=== PATIENT | male | born 1965 | race Caucasian/White ===

== ENCOUNTER 2017-01-20 04:29 | Emergency (ER) | payer BC ==
--- NOTE | 2017-01-20 04:52 | EDM.PDOC ---
ED HPI GENERAL MEDICAL PROBLEM - General Chief Complaint: General Stated Complaint: headache Time Seen by Provider: 01/20/17 04:45 Source of Information: Reports: Patient, Family, Old records - History of Present Illness INITIAL COMMENTS - FREE TEXT/NARRATIVE: The patient was brought to the emergency room via private automobile by his for evaluation of return of a 10/10 sharp pounding diffuse headache typical of his previous headaches. He is not certain when he had his last severe headache, although he continues to see his neurologist at [facility] with extensive previous workup. Symptoms started at about 9 a.m. yesterday morning with last dose of ibuprofen at 600 mg at about 2 a.m.. He is having some problems with photophobia and mild nausea typical of his previous headaches with no emesis to this point. No recent history of abdominal pain, heartburn, diarrhea, melena, gross hematochezia, or any food intolerance , including fatty foods, etc.. The patient also denies any recent fever, cough, wheezing, dyspnea, etc.. Onset: gradual Onset Date: 01/19/17 Onset Time: 09:00 Duration: Constant, Getting worse Location: Reports: head. Denies: face, neck, chest, abdomen, back, upper extremity, left, upper extremity, right Quality: Reports: Same as previous episode, Sharp, Stabbing, Throbbing Improves with: Reports: None Worsens with: Reports: None Context: Reports: Other (As above) Associated Symptoms: Reports: headaches, nausea/vomiting, shortness of breath. Denies: confusion, chest pain, cough, diaphoresis, fever/chills, loss of appetite, seizure, syncope, weakness Treatments MARKETING OUTREACH COORDINATOR: Reports: NSAIDS Headache Pain Score (Numeric/FACES): 10 - Related Data Allergies Allergy/AdvReac Type Severity Reaction Status Date / Time sumatriptan [From Imitrex] Allergy Hypertensio Verified 01/20/17 04:35 n sumatriptan succinate Allergy Hypertensio Verified 01/20/17 04:35 [From Imitrex] n Home Meds: Home Meds Lisinopril [Prinivil] 20 mg PO DAILY 05/10/14 [History] PARoxetine [Paxil] 40 mg PO DAILY 05/10/14 [History] Verapamil HCl [Verapamil ER] 120 mg PO DAILY 05/10/14 [History] Ibuprofen 600 mg PO Q6H PRN 02/20/15 [History] metFORMIN [Glucophage] 1 tab PO BID 02/20/15 [History] Aspirin [Maximiliano Chewable Aspirin] 81 mg PO DAILY 09/13/16 [History] SitaGLIPtin [Januvia] 100 mg PO DAILY 09/13/16 [History] Past Medical History HEENT History: Reports: Allergic rhinitis, Impaired vision, Other (see below). Denies: Cataract, Glaucoma, Hard of hearing, Macular degeneration, Retinal detachment Other HEENT History: Diabetic retinopathy, reading glasses Cardiovascular History: Reports: High cholesterol, Hypertension, Other (see below). Denies: Afib, Aneurysm, Arrhythmia, Blood clots/VTE/DVT, CAD, Heart Failure, Heart murmur, MA, Syncope Other Cardiovascular History: History of hyperlipidemia with fatty liver by CT scan Respiratory History: Reports: Intubation, previous, Sleep apnea, Other (see below). Denies: Asthma, COPD, PE, Pneumothorax, TB Other Respiratory History: Noncompliant with CPAP Gastrointestinal History: Reports: Cholelithiasis, GERD, Hiatal hernia. Denies : Celiac disease, Chronic constipation, Chronic diarrhea, Colon polyp, Diverticulosis, Fecal incontinence, Gastritis, GI bleed, Hepatitis, Inflammatory bowel disease, Irritable bowel syndrome, Jaundice, Pancreatitis, PUD, Other (see below) Other Gastrointestinal History: Note history of Monica fundoplication and cholecystectomy as below Genitourinary History: Reports: Renal calculus, Other (see below). Denies: BPH , Chronic renal insuffiency, STD, Urinary incontinence, UTI, recurrent Other Genitourinary History: Bilateral nephrolithiasis by CT scan with no previous symptoms Musculoskeletal History: Reports: Back pain, chronic, Neck pain, chronic, Osteoarthritis, Other (see below). Denies: Amputation, Fracture, Gout, RA, SLE Other Musculoskeletal History: Positive BETHANIE in July 2016 Neurological History: Reports: Headaches, chronic, Head trauma, Migraines, Other (see below). Denies: Cerebral aneurysms, Concussion, CVA, Frequent repetitive habits (TICS), Neuropathy, diabetic, Neuropathy, peripheral, Parkinson's, Seizure, TIA, Vertigo Other Neuro History: Refractory recurrent migraine/tension headaches, head contusion without concussion on 04/25/16 Psychiatric History: Reports: Addiction, Anxiety, Depression, Other (see below) . Denies: Abuse, victim of, ADHD, Dementia, Psych Hospitalization(s), PTSD, Suicide attempt, Suicidal ideation Other Psychiatric History: history of previous chronic narcotic use Endocrine/Metabolic History: Reports: Diabetes, type II. Denies: Hypothyroidism , IDDM Hematologic History: Reports: Blood transfusion(s), Other (see below). Denies: Anemia, B12 deficiency, Iron deficiency Other Hematologic History: Blood transfusions at time of Monica fundoplication Immunologic History: Reports: None, Other (see below). Denies: AIDS, HIV, SLE Other Immunologic History: Note previous negative workup for positive BETHANIE Oncologic (Cancer) History: Reports: None. Denies: Basal cell carcinoma, Hodgkin's Lymphoma, Leukemia, Lymphoma, Malignant melanoma, Non-Hodgkin's Lymphoma Dermatologic History: Reports: Eczema, Venous stasis dermatitis. Denies: Psoriasis - Infectious Disease History Infectious Disease History: Reports: Chicken pox. Denies: C-difficile, Measles , MRSA, Mumps, Pertussis (whooping cough), Rheumatic Fever, Rubella, Scarlet fever, Shingles, VRE - Past Surgical History Head Surgeries/Procedures: Reports: None HEENT Surgical History: Reports: None. Denies: Adenoidectomy, Cataract surgery , Eye surgery, Laser surgery, LASIK, Myringotomy w tube(s), Naso-sinus surgery, Oral surgery, Tonsillectomy Cardiovascular Surgical History: Reports: Varicose. Denies: Vascular surgery Other Cardiovascular Surgeries/Procedures: Left leg injections/sclerotherapy for varicose veins in about 2010 Respiratory Surgical History: Reports: None. Denies: Lung Biopsies, Thoracentesis GI Surgical History: Reports: Appendectomy, Cholecystectomy, Colonoscopy, EGD, Hernia, inguinal, Other (see below) Other GI Surgeries/Procedures: Monica fundoplication in September 2009, appendectomy 1990, laparoscopic cholecystectomy in 2007, last colonoscopy in about 2012, EGD in about 2009, right inguinal hernia repair in 1988 Male Surgical History: Reports: Circumcision, Vasectomy, Other (see below) Other Male Surgeries/Procedures: Circumcision as an , vasectomy in about 1995 Endocrine Surgical History: Reports: None. Denies: Thyroid biopsy Neurological Surgical History: Reports: None. Denies: C-Spine, Discectomy, Laminectomy, Lumbar spine, Spinal fusion, Vertebroplasty Musculoskeletal Surgical History: Reports: Arthroscopic knee, Arthroscopic procedure, Shoulder surgery, Other (see below). Denies: Carpal tunnel, Ganglion cyst, ORIF Other Musculoskeletal Surgeries/Procedures:: Right-sided arthroscopic meniscal repair in 1986, right laparoscopic shoulder surgery in October 2016 Oncologic Surgical History: Reports: None Dermatological Surgical History: Reports: None - Past Imaging History Past Imaging History: Reports: Angiography (Heart catheterization at [facility] in February 2015), CAT scan (Last CT scan of the brain on 04/25/16 with multiple previous evaluations by history, CT of the abdomen and pelvis on ), Stress testing (Cardiac stress test of unknown type in [facility] in February 2015), Upper GI x-ray/series (Upper GI and swallowing study on 02/25/12), Other (see below) (EMG and nerve conduction studies in July 2016) Social & Family History - Family History Cardiac: Reports: CAD, MA, Stent, Other (see below) Other Cardiac Family History: History of early heart attacks in family, including brother in his 50s another brother in his 60s with both brothers having PTCA/stents Neurological: Reports: Parkinson's, Other (see below). Denies: Alzheimers disease, Cerebral aneurysms, CVA, Dementia, Frequent repetitive habits (TICS), Migraines, MS, Neuropathy, peripheral, Seizure, TIA Other Neurological Family History: Maternal aunt with Parkinson's disease - Tobacco Use Smoking Status *Q: Never Smoker Tobacco Use Within Last Twelve Months: No Smoking Cessation Information Provided To Patient: No Second Hand Smoke Exposure: No Second Hand Smoke Education Provided: No - Caffeine Use Caffeine Use: Reports: Coffee, Soda. 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 ED EXAM, GENERAL - Physical Exam Exam: See Below Exam Limited By: No limitations General Appearance: alert, WD/WN, anxious (Moderate), mild distress Eye Exam: bilateral eye: EOMI, normal inspection (No nystagmus), PERRL Ears: normal external exam, normal canal, hearing grossly normal, normal TMs Nose: normal inspection, normal mucosa, no blood Throat/Mouth: Normal inspection, Normal lips, Normal teeth, Normal gums, Normal oropharynx, Normal voice, No airway compromise. No: Dysphagia, Perioral cyanosis Head: atraumatic, normocephalic. No: facial swelling, facial tenderness, sinus tenderness Neck: normal inspection, supple, non-tender, full range of motion. No: lymphadenopathy (L), lymphadenopathy (R), thyromegaly Respiratory/Chest: no respiratory distress, lungs clear, normal breath sounds, no accessory muscle use, chest non-tender. No: pleural rub, retractions Cardiovascular: normal peripheral pulses, regular rate, rhythm, no edema, no gallop, no JVD, no murmur, no rub. No: gallop/S3, gallop/S4, friction rub Peripheral Pulses: 4+: radial (L), radial (R) GI/Abdominal: normal bowel sounds, soft, non tender, no organomegaly, no distention, no abnormal bruit, no mass. No: guarding (Male) Exam: Deferred Rectal (Males) Exam: Deferred Back Exam: normal inspection, full range of motion. No: CVA tenderness (L), CVA tenderness (R), muscle spasm Extremities: normal inspection, normal range of motion, non-tender, normal capillary refill, no pedal edema Neurological: alert, oriented, CN II-XII intact, normal cognition, normal gait, no motor/sensory deficits Psychiatric: anxious (Moderate), depressed mood (Mild to moderate) Skin Exam: Warm, Dry, Intact, Normal color, No rash. No: Diaphoretic, Wound/ incision Lymphatic: no adenopathy Course - Vital Signs Last Recorded V/S: Last Vital Signs Temp 36.6 C 01/20/17 04:47 Pulse 74 01/20/17 04:47 Resp 18 01/20/17 04:47 BP 143/94 H 01/20/17 04:47 Pulse Ox 100 01/20/17 04:47 Vital Signs - 24 hr 01/20/17 01/20/17 01/20/17 04:31 04:47 05:34 Temperature [ 36.6 C 36.6 C Oral] Pulse, 74 74 88 Peripheral [ Right Pulse Oximetry] Respiratory 18 18 14 Rate Blood Pressure 143/94 H 143/94 H 142/94 H [Left Upper Arm ] O2 Sat by Pulse 100 100 97 Oximetry - Orders/Labs/Meds Orders: Active Orders 24 hr Category Date Time Status Peripheral IV Care [RC] . DIRECTED Care 01/20/17 04:53 Active Sodium Chloride 0.9% [Saline Flush] Med 01/20/17 04:53 Active 10 ml FLUSH ASDIRECTED PRN Peripheral IV Insertion Adult [OM.PC] Routine Oth 01/20/17 04:53 Ordered Medication Orders Sodium Chloride (Saline Flush) 10 ml FLUSH ASDIRECTED PRN PRN Reason: Keep Vein Open Last Admin: 01/20/17 05:19 Dose: 10 ml Labs: None Meds: Medications Generic Name Dose Route Start Last Admin Trade Name Freq PRN Reason Stop Dose Admin Sodium Chloride 10 ml 01/20/17 04:53 01/20/17 05:19 Saline Flush FLUSH 10 ml ASDIRECTED PRN Administration Keep Vein Open Discontinued Medications Generic Name Dose Route Start Last Admin Trade Name Freq PRN Reason Stop Dose Admin Diazepam 2.5 mg 01/20/17 04:53 01/20/17 05:11 Valium IVPUSH 01/20/17 04:54 2.5 mg ONETIME ONE Administration Diazepam 10 mg 01/20/17 04:55 01/20/17 05:14 Valium IM 01/20/17 04:56 10 mg ONETIME ONE Administration Diphenhydramine HCl 50 mg 01/20/17 04:54 01/20/17 05:07 Benadryl IVPUSH 01/20/17 04:55 50 mg ONETIME ONE Administration Hydromorphone HCl 1 mg 01/20/17 04:54 01/20/17 05:04 Dilaudid IVPUSH 01/20/17 04:55 1 mg ONETIME ONE Administration Metoclopramide HCl 20 mg 01/20/17 04:53 01/20/17 05:00 Reglan IVPUSH 01/20/17 04:54 20 mg ONETIME ONE Administration - Radiology Interpretation Free Text/Narrative:: None Departure - Departure Time of Disposition: 05:40 Disposition: Home, Self-Care 01 Condition: good Clinical Impression: Frequent headaches, Diabetes mellitus, Hypertension, Osteoarthritis, Mixed anxiety and depressive disorder, Sleep apnea Forms: ED Department Discharge, Return to Work/School Form Additional Instructions: 1. Follow up with your regular provider in 10-14 days as needed, if symptoms persist. 2. Tylenol 650 mg by mouth every 4 hours and/or OTC ibuprofen 2-3 tabs by mouth every 6 hours with food as directed./needed. 3. Ice packs to head and neck, dark and quiet room, etc. as directed until headache resolves. 4. Discuss possible additional preventative medications for your headaches with your regular provider. Consider OTC magnesium oxide 400 mg every day as headache prevention with diarrhea precautions with this medicatiion as directed 5. Work excuse- See Form 6. Sedation precautions with no driving, etc. for 18 hours because of emergency room medications. 7. Discuss with your regular provider URSZULA about changing your CPAP mask with initiation of this therapy once again URSZULA - Problem List & Annotations (1) Frequent headaches SNOMED Code(s): 078384208 Code(s): R51 - HEADACHE Status: Acute Priority: Medium Annotation/ Comment:: Overall good results with above treatment. Note aggressive treatment as above secondary to known history of refractory headaches. Work excuse provided. His will drive him home secondary to sedating medications given in the emergency room. (2) Diabetes mellitus SNOMED Code(s): 73573714 Code(s): E11.9 - TYPE 2 DIABETES MELLITUS WITHOUT COMPLICATIONS Status: Acute Priority: Medium Annotation/Comment:: Accu-Cheks are good control by patient history with the patient taking his Accu-Cheks at home on a 3 times a day to 4 times a day basis. Average Accu-Cheks in the 120s by his history. Continue to observe closely through his regular provider. Note history of diabetic retinopathy Qualifiers: Diabetes mellitus type: type 2 Diabetes mellitus complication status: with ophthalmic complications Diabetes mellitus complication detail: with diabetic retinopathy Diabetic retinopathy severity: with mild nonproliferative retinopathy Diabetes mellitus macular edema: macular edema presence unspecified (3) Hypertension SNOMED Code(s): 35702778 Code(s): I10 - ESSENTIAL (PRIMARY) HYPERTENSION Status: Acute Priority: Medium Annotation/Comment:: Blood pressure somewhat elevated in the emergency room today likely secondary to his headache. Continue to watch this closely his regular providers with no change in current medical therapy. Qualifiers: Hypertension type: essential hypertension Qualified Code(s): I10 - Essential (primary) hypertension (4) Sleep apnea SNOMED Code(s): 26708208 Code(s): G47.30 - SLEEP APNEA, UNSPECIFIED Status: Acute Priority: Medium Annotation/Comment:: The patient and his were once again counseled and encouraged to obtain a new mask from his regular provider URSZULA. He has been noncompliant with his CPAP for quite some time secondary to previous mask intolerance. No recent fever or bronchitic-type symptoms. Qualifiers: Sleep apnea type: unspecified type Qualified Code(s): G47.30 - Sleep apnea , unspecified (5) Mixed anxiety and depressive disorder SNOMED Code(s): 244485556 Code(s): F41.8 - OTHER SPECIFIED ANXIETY DISORDERS Status: Chronic Priority: Medium Annotation/Comment:: Stable by patient history. Continue to observe closely through his regular provider. Possible anxiety component to the above symptoms (6) Osteoarthritis SNOMED Code(s): 243735619 Code(s): M19.90 - UNSPECIFIED OSTEOARTHRITIS, UNSPECIFIED SITE Status: Chronic Priority: Medium Annotation/Comment:: Stable by patient history with current ibuprofen use. Note previous positive BETHANIE as above with patient apparently having a rheumatology appointment on 10/13/16 with no specific diagnosis given at that time Qualifiers: Osteoarthritis location: multiple joints Osteoarthritis type: primary Qualified Code(s): M15.0 - Primary generalized (osteo)arthritis - Problem List Review Problem List Initiated/Reviewed/Updated: Yes - My Orders Last 24 Hours: My Active Orders 01/20/17 04:53 Peripheral IV Care [RC] . DIRECTED Sodium Chloride 0.9% [Saline Flush] 10 ml FLUSH ASDIRECTED PRN Peripheral IV Insertion Adult [OM.PC] Routine - Assessment/Plan Last 24 Hours: My Active Orders 01/20/17 04:53 Peripheral IV Care [RC] . DIRECTED Sodium Chloride 0.9% [Saline Flush] 10 ml FLUSH ASDIRECTED PRN Peripheral IV Insertion Adult [OM.PC] Routine Assessment:: As above Plan: As above. Extensive precautions were given to the patient and his , who are in agreement with the treatment plan. See Patient Instructions for further treatment and plan.
[2017-01-20] MEDS ORDERED: Metoclopramide 10 MG/2 ML SDV IVPUSH ONE (04:53)
[2017-01-20] MEDS ORDERED: HYDROmorphone 1 MG/ML Syringe IVPUSH ONE (04:54)
[2017-01-20] MEDS ORDERED: diphenhydrAMINE 50 MG/ML SDV IVPUSH ONE (04:54)
[2017-01-20] MEDS: Sodium Chloride 0.9% 10 ML Syringe FLUSH PRN ×3 (05:12→05:19)
[2017-01-20 05:36] VITALS: BP 142/94
== END 2017-01-20 05:40 | disposition home or self-care (01) ==
LOC: LL.ED 04:29
DX: R51 Headache (principal); E11.9 Type 2 diabetes mellitus without complications; I10 Essential (primary) hypertension; F41.8 Other specified anxiety disorders; G47.30 Sleep apnea, unspecified; Z79.899 Other long term (current) drug therapy; Z79.82 Long term (current) use of aspirin; Z79.84 Long term (current) use of oral hypoglycemic drugs; Z88.8 Allergy status to other drugs, medicaments and biological substances; E78.00 Pure hypercholesterolemia, unspecified
CPT/HCPCS: 96372; 96374; 96375; 99284; J1170; J1200; J2765; J3360; J7050

== ENCOUNTER 2017-03-21 20:57 | Emergency (ER) | payer BC ==
[2017-03-21] MEDS ORDERED: Morphine 4 MG/ML Syringe IVPUSH ONE ×3 (20:59→22:50)
[2017-03-21] MEDS ORDERED: Aspirin 81 MG Tab.Chew PO ONE (20:59)
[2017-03-21] MEDS ORDERED: Nitroglycerin 0.4 MG Tab.SL SL PRN ×3 (21:00→21:41)
[2017-03-21] MEDS ORDERED: Ondansetron 4 MG/2 ML SDV ONE ×2 (21:06→22:41)
--- NOTE | 2017-03-21 21:08 | EDM.PDOC ---
ED HISTORY OF PRESENT ILLNESS - General Chief Complaint: Chest Pain Stated Complaint: Chest Pain Time Seen by Provider: 03/21/17 20:57 Source of Information: Reports: Patient History Limitations: Reports: No limitations - History of Present Illness INITIAL COMMENTS - FREE TEXT/NARRATIVE: The patient presents by private vehicle with son from home with complaint of substernal chest pain that began 20 minutes prior to transport to the ER at approximately 20:00. The patient states the pain was initial 7-8/10 and on arrival in the ER he is moaning and groaning and diaphoretic and rates the pain at 8-9/10 in severity and states it radiates to bilateral shoulders. He denies a history of CA or CAD that he is aware of. He denies DVT or PE. He has cardiac risk factors of Diabetes Type 2 on Metformin, HTN treated with lisinopril, and HLD treated with a statin. He denies other symptoms or complaints. - Related Data Allergies/ADRs: Allergies Allergy/AdvReac Type Severity Reaction Status Date / Time sumatriptan [From Imitrex] Allergy Hypertensio Verified 01/20/17 04:35 n sumatriptan succinate Allergy Hypertensio Verified 01/20/17 04:35 [From Imitrex] n Home Meds: Home Meds Lisinopril [Prinivil] 20 mg PO DAILY 05/10/14 [History] PARoxetine [Paxil] 40 mg PO DAILY 05/10/14 [History] Verapamil HCl [Verapamil ER] 120 mg PO DAILY 05/10/14 [History] Ibuprofen 600 mg PO Q6H PRN 02/20/15 [History] metFORMIN [Glucophage] 1 tab PO BID 02/20/15 [History] Aspirin [Maximiliano Chewable Aspirin] 81 mg PO DAILY 09/13/16 [History] SitaGLIPtin [Januvia] 100 mg PO DAILY 09/13/16 [History] Past Medical History HEENT History: Reports: Allergic rhinitis, Impaired vision, Other (see below). Denies: Cataract, Glaucoma, Hard of hearing, Macular degeneration, Retinal detachment Other HEENT History: Diabetic retinopathy, reading glasses Cardiovascular History: Reports: High cholesterol, Hypertension, Other (see below). Denies: Afib, Aneurysm, Arrhythmia, Blood clots/VTE/DVT, CAD, Heart Failure, Heart murmur, CA, Syncope Other Cardiovascular History: History of hyperlipidemia with fatty liver by CT scan Respiratory History: Reports: Intubation, previous, Sleep apnea, Other (see below). Denies: Asthma, COPD, PE, Pneumothorax, TB Other Respiratory History: Noncompliant with CPAP Gastrointestinal History: Reports: Cholelithiasis, GERD, Hiatal hernia. Denies : Celiac disease, Chronic constipation, Chronic diarrhea, Colon polyp, Diverticulosis, Fecal incontinence, Gastritis, GI bleed, Hepatitis, Inflammatory bowel disease, Irritable bowel syndrome, Jaundice, Pancreatitis, PUD, Other (see below) Other Gastrointestinal History: Note history of Monica fundoplication and cholecystectomy as below Genitourinary History: Reports: Renal calculus, Other (see below). Denies: BPH , Chronic renal insuffiency, STD, Urinary incontinence, UTI, recurrent Other Genitourinary History: Bilateral nephrolithiasis by CT scan with no previous symptoms Musculoskeletal History: Reports: Back pain, chronic, Neck pain, chronic, Osteoarthritis, Other (see below). Denies: Amputation, Fracture, Gout, RA, SLE Other Musculoskeletal History: Positive BETHANIE in July 2016 Neurological History: Reports: Headaches, chronic, Head trauma, Migraines, Other (see below). Denies: Cerebral aneurysms, Concussion, CVA, Frequent repetitive habits (TICS), Neuropathy, diabetic, Neuropathy, peripheral, Parkinson's, Seizure, TIA, Vertigo Other Neuro History: Refractory recurrent migraine/tension headaches, head contusion without concussion on 04/25/16 Psychiatric History: Reports: Addiction, Anxiety, Depression, Other (see below) . Denies: Abuse, victim of, ADHD, Dementia, Psych Hospitalization(s), PTSD, Suicide attempt, Suicidal ideation Other Psychiatric History: history of previous chronic narcotic use Endocrine/Metabolic History: Reports: Diabetes, type II. Denies: Hypothyroidism , IDDM Hematologic History: Reports: Blood transfusion(s), Other (see below). Denies: Anemia, B12 deficiency, Iron deficiency Other Hematologic History: Blood transfusions at time of Monica fundoplication Immunologic History: Reports: None, Other (see below). Denies: AIDS, HIV, SLE Other Immunologic History: Note previous negative workup for positive BETHANIE Oncologic (Cancer) History: Reports: None. Denies: Basal cell carcinoma, Hodgkin's Lymphoma, Leukemia, Lymphoma, Malignant melanoma, Non-Hodgkin's Lymphoma Dermatologic History: Reports: Eczema, Venous stasis dermatitis. Denies: Psoriasis Other Dermatologic History: Venous stasis dermatitis - Infectious Disease History Infectious Disease History: Reports: Chicken pox. Denies: C-difficile, Measles , MRSA, Mumps, Pertussis (whooping cough), Rheumatic Fever, Rubella, Scarlet fever, Shingles, VRE - Past Surgical History Head Surgeries/Procedures: Reports: None HEENT Surgical History: Reports: None. Denies: Adenoidectomy, Cataract surgery , Eye surgery, Laser surgery, LASIK, Myringotomy w tube(s), Naso-sinus surgery, Oral surgery, Tonsillectomy Cardiovascular Surgical History: Reports: Varicose. Denies: Vascular surgery Other Cardiovascular Surgeries/Procedures: Left leg injections/sclerotherapy for varicose veins in about 2010 Respiratory Surgical History: Reports: None. Denies: Lung Biopsies, Thoracentesis GI Surgical History: Reports: Appendectomy, Cholecystectomy, Colonoscopy, EGD, Hernia, inguinal, Other (see below) Other GI Surgeries/Procedures: Monica fundoplication in September 2009, appendectomy 1990, laparoscopic cholecystectomy in 2007, last colonoscopy in about 2012, EGD in about 2009, right inguinal hernia repair in 1988 Male Surgical History: Reports: Circumcision, Vasectomy, Other (see below) Other Male Surgeries/Procedures: Circumcision as an , vasectomy in about 1995 Endocrine Surgical History: Reports: None. Denies: Thyroid biopsy Neurological Surgical History: Reports: None. Denies: C-Spine, Discectomy, Laminectomy, Lumbar spine, Spinal fusion, Vertebroplasty Musculoskeletal Surgical History: Reports: Arthroscopic knee, Arthroscopic procedure, Shoulder surgery, Other (see below). Denies: Carpal tunnel, Ganglion cyst, ORIF Other Musculoskeletal Surgeries/Procedures:: Right-sided arthroscopic meniscal repair in 1986, right laparoscopic shoulder surgery in October 2016 Oncologic Surgical History: Reports: None Dermatological Surgical History: Reports: None - Past Imaging History Past Imaging History: Reports: Angiography (Heart catheterization at [facility] in February 2015), CAT scan (Last CT scan of the brain on 04/25/16 with multiple previous evaluations by history, CT of the abdomen and pelvis on ), Stress testing (Cardiac stress test of unknown type in [facility] in February 2015), Upper GI x-ray/series (Upper GI and swallowing study on 02/25/12), Other (see below) (EMG and nerve conduction studies in July 2016) Social & Family History - Family History Cardiac: Reports: CAD, CA, Stent, Other (see below) Other Cardiac Family History: History of early heart attacks in family, including brother in his 50s another brother in his 60s with both brothers having PTCA/stents Neurological: Reports: Parkinson's, Other (see below). Denies: Alzheimers disease, Cerebral aneurysms, CVA, Dementia, Frequent repetitive habits (TICS), Migraines, MS, Neuropathy, peripheral, Seizure, TIA Other Neurological Family History: Maternal aunt with Parkinson's disease - Tobacco Use Smoking Status *Q: Never Smoker Second Hand Smoke Exposure: No - Caffeine Use Caffeine Use: Reports: Coffee, Soda. 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 ED EXAM, GENERAL - Physical Exam Exam: See Below Exam Limited By: No limitations General Appearance: alert, WD/WN, moderate distress (Diaphoretic. Moaning and Groaning. ) Eye Exam: bilateral eye: EOMI, normal inspection, PERRL Ears: normal external exam, normal canal, hearing grossly normal, normal TMs Ear Exam: bilateral ear: auricle normal, canal normal, TM normal Nose: normal inspection, normal mucosa, no blood Throat/Mouth: Normal inspection, Normal lips, Normal teeth, Normal gums, Normal oropharynx Head: atraumatic, normocephalic Neck: normal inspection, supple, non-tender, full range of motion. No: lymphadenopathy (L), lymphadenopathy (R), tender lateral, tender midline Respiratory/Chest: no respiratory distress, lungs clear, normal breath sounds, no accessory muscle use, chest non-tender Cardiovascular: normal peripheral pulses, regular rate, rhythm, no edema, no gallop, no murmur, no rub Peripheral Pulses: 2+: radial (L), radial (R) GI/Abdominal: normal bowel sounds, soft, non tender, no organomegaly, no distention. No: guarding, rigid, rebound Back Exam: normal inspection, full range of motion. No: CVA tenderness (L), CVA tenderness (R), paraspinal tenderness, vertebral tenderness Extremities: normal inspection, normal range of motion, non-tender, no pedal edema, normal capillary refill Neurological: alert, oriented, CN II-XII intact, normal cognition, normal gait, normal reflexes, no motor/sensory deficits Psychiatric: normal affect, normal mood Skin Exam: Warm, Dry, Intact, Normal color, No rash Lymphatic: no adenopathy EKG INTERPRETATION EKG Date: 03/21/17 Time: 20:53 Rhythm: NSR Rate (beats/min): 92 Henrietta: normal P-wave: present QRS: other (Q waves that are wide and deep in V1.) ST-T: normal (No ST elevation or depressions.) QT: normal Comparison: change from previous EKG (Q waves wider and more shallow in V1 than EKG from 02/25/2015,) Course - Vital Signs Last Recorded V/S: Last Vital Signs Temp 36.7 C 03/21/17 21:19 Pulse 98 03/21/17 22:50 Resp 21 H 03/21/17 22:50 BP 127/77 03/21/17 22:50 Pulse Ox 100 03/21/17 22:50 - Orders/Labs/Meds Orders: Active Orders 24 hr Category Date Time Status EKG Documentation Completion [RC] STAT Care 03/21/17 21:00 Active Chest 1V Frontal [CR] Stat Exams 03/21/17 21:00 Taken Chest PE [Ang Chest] [CT] Stat Exams 03/21/17 21:38 Taken Nitroglycerin/D5W [Nitroglycerin 25 MG/D5W 250 ML] Med 03/21/17 21:30 Active 25 mg in 250 ml IV TITRATE Medication Orders Nitroglycerin/Dextrose (Nitroglycerin 25 Mg/D5w 250 Ml) 25 mg in 250 mls @ 3 mls/hr IV TITRATE WILLY PRN Reason: 5 MCG/MIN Last Admin: 03/21/17 21:38 Dose: 5 mcg/min, 3 mls/hr Labs: Laboratory Tests 03/21/17 03/21/17 03/21/17 Range/Units 21:00 21:00 21:00 WBC 7.3 (4.0-10.2) K/uL RBC 5.04 (4.33-5.41) M/uL Hgb 15.1 (13.1-16.8) g/dL Hct 43.0 (39.0-49.0) % MCV 85.3 (84.0-98.0) fL MCH 30.0 (28.2-33.3) pg MCHC 35.1 (31.7-36.0) g/dL RDW 12.7 (11.2-14.1) % Plt Count 226 (150-350) K/uL Neut % (Auto) 45.1 (45.0-80.0) % Lymph % (Auto) 43.6 (10.0-50.0) % Griggs % (Auto) 8.4 (2.0-14.0) % Eos % (Auto) 2.5 (0.0-5.0) % Baso % (Auto) 0.4 (0.0-2.0) % Neut # (Auto) 3.27 (1.40-7.00) K/uL Lymph # (Auto) 3.16 (0.50-3.50) K/uL Griggs # (Auto) 0.61 (0.00-1.00) K/uL Eos # (Auto) 0.18 (0.00-0.50) K/uL Baso # (Auto) 0.03 (0.00-0.20) K/uL PT (9.8-11.7) SEC INR APTT (23.5-30.0) SEC D-Dimer, Quantitative < 100 (0-400) ng/mL Sodium 137 (136-145) mmol/L Potassium 3.5 (3.5-5.1) mmol/L Chloride 103 (98-107) mmol/L Carbon Dioxide 23.9 (21.0-32.0) mmol/L BUN 11 (7-18) mg/dL Creatinine 1.27 H (0.51-1.17) mg/dL Est Cr Clr Drug Dosing TNP Estimated GFR (MDRD) 60 mL/min Glucose 158 H (74-106) mg/dL Calcium 10.0 (8.5-10.1) mg/dL Total Bilirubin 0.6 (0.2-1.0) mg/dL AST 29 (15-37) U/L ALT 44 (12-78) U/L Alkaline Phosphatase 96 (46-116) IU/L Creatine Kinase 134 (26-308) U/L Creatine Kinase Index 0.9 (0.0-2.5) % CK-MB (CK-2) 1.20 (0.00-3.60) ng/mL Troponin I 0.000 (0.000-0.056) ng/mL Total Protein 7.3 (6.4-8.2) g/dL Albumin 4.4 (3.4-5.0) g/dL 03/21/17 Range/Units 21:00 WBC (4.0-10.2) K/uL RBC (4.33-5.41) M/uL Hgb (13.1-16.8) g/dL Hct (39.0-49.0) % MCV (84.0-98.0) fL MCH (28.2-33.3) pg MCHC (31.7-36.0) g/dL RDW (11.2-14.1) % Plt Count (150-350) K/uL Neut % (Auto) (45.0-80.0) % Lymph % (Auto) (10.0-50.0) % Griggs % (Auto) (2.0-14.0) % Eos % (Auto) (0.0-5.0) % Baso % (Auto) (0.0-2.0) % Neut # (Auto) (1.40-7.00) K/uL Lymph # (Auto) (0.50-3.50) K/uL Griggs # (Auto) (0.00-1.00) K/uL Eos # (Auto) (0.00-0.50) K/uL Baso # (Auto) (0.00-0.20) K/uL PT 11.0 (9.8-11.7) SEC INR 1.0 APTT 26.8 (23.5-30.0) SEC D-Dimer, Quantitative (0-400) ng/mL Sodium (136-145) mmol/L Potassium (3.5-5.1) mmol/L Chloride (98-107) mmol/L Carbon Dioxide (21.0-32.0) mmol/L BUN (7-18) mg/dL Creatinine (0.51-1.17) mg/dL Est Cr Clr Drug Dosing Estimated GFR (MDRD) mL/min Glucose (74-106) mg/dL Calcium (8.5-10.1) mg/dL Total Bilirubin (0.2-1.0) mg/dL AST (15-37) U/L ALT (12-78) U/L Alkaline Phosphatase (46-116) IU/L Creatine Kinase (26-308) U/L Creatine Kinase Index (0.0-2.5) % CK-MB (CK-2) (0.00-3.60) ng/mL Troponin I (0.000-0.056) ng/mL Total Protein (6.4-8.2) g/dL Albumin (3.4-5.0) g/dL Meds: Medications Generic Name Dose Route Start Last Admin Trade Name Freq PRN Reason Stop Dose Admin Nitroglycerin/Dextrose 25 mg in 250 mls @ 3 mls/hr 03/21/17 21:30 03/21/17 21 :38 Nitroglycerin 25 Mg/D5w 250 Ml IV 5 mcg/min TITRATE WILLY 3 mls/hr 5 MCG/MIN Administration Discontinued Medications Generic Name Dose Route Start Last Admin Trade Name Freq PRN Reason Stop Dose Admin Aspirin 324 mg 03/21/17 20:59 03/21/17 21:00 Aspirin PO 03/21/17 21:00 324 mg ONETIME ONE Administration Iopamidol 100 ml 03/21/17 22:00 03/21/17 23:42 Isovue-370 (76%) IVPUSH 03/21/17 22:01 Not Given ONETIME ONE Iopamidol Confirm 03/21/17 21:47 03/21/17 22:46 Isovue-370 (76%) Administered 03/21/17 21:48 100 ml Dose Administration 100 ml .ROUTE .STK-MED ONE Morphine Sulfate 4 mg 03/21/17 20:59 03/21/17 21:05 Morphine IVPUSH 03/21/17 21:00 4 mg ONETIME ONE Administration Morphine Sulfate 4 mg 03/21/17 21:39 03/21/17 21:27 Morphine IVPUSH 03/21/17 21:40 4 mg ONETIME ONE Administration Morphine Sulfate 4 mg 03/21/17 22:50 Morphine IVPUSH 03/21/17 22:51 ONETIME ONE Nitroglycerin 0.4 mg 03/21/17 21:00 03/21/17 21:10 Nitrostat SL 03/21/17 21:11 0.4 mg Q5M PRN Administration Chest Pain Nitroglycerin 0.4 mg 03/21/17 21:17 03/21/17 21:18 Nitrostat SL 03/21/17 21:28 0.4 mg Q5M PRN Administration Chest Pain Nitroglycerin 0.4 mg 03/21/17 21:41 03/21/17 21:28 Nitrostat SL 03/21/17 21:52 0.4 mg Q5M PRN Administration Chest Pain Ondansetron HCl Confirm 03/21/17 21:06 03/21/17 21:09 Zofran Administered 03/21/17 21:07 4 mg Dose Administration 4 mg .ROUTE .STK-MED ONE Ondansetron HCl Confirm 03/21/17 22:41 03/21/17 22:40 Zofran Administered 03/21/17 22:42 4 mg Dose Administration 4 mg .ROUTE .STK-MED ONE - Radiology Interpretation Free Text/Narrative:: CXR negative for PE, infiltrate, and no widening of mediastinum or cardiac silhouette and no changes from last chest xray in 2014. CT of the chest with PE protocol negative for PE. I noted an area of concern of the ascending thoracic aorta that to I thought looked concerning for filling defect and possible dissection, but discussed with radiologist from [facility] who feels it represents pulsation and motion artifact and has no concern for dissecting aneurysm. Departure - Departure Time of Disposition: 22:53 Disposition: DC/Tfer to [facility] 02 Reason for Transfer *Q: Other (Strong clinical suspicion of cardiac etiology or dissecting aortic aneurysm.) Clinical Impression: Chest pain Qualifiers: Chest pain type: unspecified Qualified Code(s): R07.9 - Chest pain, unspecified Forms: ED Department Discharge - My Orders Last 24 Hours: My Active Orders 03/21/17 21:00 EKG Documentation Completion [RC] STAT Chest 1V Frontal [CR] Stat 03/21/17 21:30 Nitroglycerin/D5W [Nitroglycerin 25 MG/D5W 250 ML] 25 mg in 250 ml IV TITRATE 03/21/17 21:38 Chest PE [Ang Chest] [CT] Stat - Assessment/Plan Last 24 Hours: My Active Orders 03/21/17 21:00 EKG Documentation Completion [RC] STAT Chest 1V Frontal [CR] Stat 03/21/17 21:30 Nitroglycerin/D5W [Nitroglycerin 25 MG/D5W 250 ML] 25 mg in 250 ml IV TITRATE 03/21/17 21:38 Chest PE [Ang Chest] [CT] Stat Assessment:: Chest pain. Plan: 1. Given aspirin 324 mg PO on arrival in ER. 2. Oxygen 4 L per nasal cannula started on arrival in ER. 3. Morphine 4 mg IV for pain control shortly after arrival, and repeated x 1 with no improvement in pain. 4. IV started and NS began at 100 mL/hour. 5. After EKG reviewed, nitroglycerin 0.4 mg SL x 3 every 5 minutes given in ER with no improvement in pain. 6. After 5 minutes nitroglycerin drip started at 5 micrograms per minute and instructed nursing/EMS staff to titrate up to 100 micrograms per minute as blood pressure would allow for chest pain. 7. Called to discuss transfer with on-call hospitalist at [facility] per patient request Dr. Silva and informed him of strong clinical suspicion of cardiac etiology or dissecting aneursym and we agreed to perform CT with PE protocol prior to transfer. 8. CT with PE protocol performed and on my review I had concern about abnormality of ascending thoracic aorta which I felt was concerning for dissecting ascending thoracic aortic aneurysm. While I was reviewing [employer] Operator called back inquiring about the status of the paient and I informed her of my concern and asked if the cardiothoracic surgeon was available to review the study as I had not yet heard back from the [facility] radiologist. I discussed with the cardiothoracic surgeon briefly and he was unable to review the images at that time. I informed him I would discuss with the radiologist and call back if necessary. 9. Discussed with [facility] radiologist who feels the abnormality I visualized of the ascending thoracic aorta was more likely pulsation and motion artifact and measured the circumference of the ascending aorta of 3-3.5 cm. I explained my strong clinical concern and he still did not feel it represent dissecting aneurysm. 10. Called back to discuss with [facility] and Dr. Silva who agreed to accept the patient. Again, I reaffirmed my clinical suspicion of cardiac etiology of the pain or dissecting aneurysm and asked him to discuss with [facility] radiologist. Also asked [employer] Operator to inform the cardiothoracic surgeon that the [facility] radiologist felt the abnormality I was seeing in the ascending thoracic aorta was more likely pulsation and motion artifact. 11. Given clinical suspicion I asked nursing to call to check for flight availability while waiting for CT of the chest and they stated earliest available time would be 50 minutes so I notified them we would send by [facility] ground ambulance as it would be quicker and asked them to notify [facility] crew. 12. [facility] EMS team will transport by ground with nitroglycerin drip as above, oxygen by nasal cannula at 4L, continuous telemetry and pulse oximetry, and patient was given a third dose of morphine 4 mg IV prior to transport.
[2017-03-21 21:30] LABS: CHLORIDE,CL 103 mmol/L (98-107); SODIUM,NA 137 mmol/L (136-145)
[2017-03-21] MEDS ORDERED: Nitroglycerin/D5W 25 MG/250 ML BOTTLE IV SCH (21:30)
[2017-03-21] MEDS ORDERED: Iopamidol 755 Mg/ML 100 ML Bottle ONE (21:47)
[2017-03-21] MEDS ORDERED: Iopamidol 755 Mg/ML 100 ML Bottle IVPUSH ONE (22:00)
[2017-03-21 23:41] VITALS: BP 134/77
[2017-03-22] MEDS ORDERED: Sodium Chloride 0.9% 1,000 ML IV ONE (21:00)
== END 2017-03-21 22:55 ==
LOC: LL.ED 20:57
DX: R07.9 Chest pain, unspecified (principal); E11.319 Type 2 diabetes mellitus with unspecified diabetic retinopathy without macular edema; H35.30 Unspecified macular degeneration; I10 Essential (primary) hypertension; E78.00 Pure hypercholesterolemia, unspecified; E78.5 Hyperlipidemia, unspecified; K21.9 Gastro-esophageal reflux disease without esophagitis; K44.9 Diaphragmatic hernia without obstruction or gangrene; M19.90 Unspecified osteoarthritis, unspecified site; F32.9 Major depressive disorder, single episode, unspecified; F41.9 Anxiety disorder, unspecified; Z79.82 Long term (current) use of aspirin; Z79.899 Other long term (current) drug therapy; Z88.8 Allergy status to other drugs, medicaments and biological substances
CPT/HCPCS: 36415; 71010; 71275; 80053; 82550; 82553; 84484; 85025; 85379; 85610; 85730; 93005; 96361; 96365; 96375; 96376; 99285; A9270; J2270; J2405; Q9967

== ENCOUNTER 2018-03-31 16:49 | Emergency (ER) | payer BC ==
[2018-03-31] MEDS ORDERED: Bupivacaine 0.5% 30 ML SDV ONE ×2 (17:25→17:26)
[2018-03-31 17:44] VITALS: BP 135/74
[2018-03-31] MEDS: Ketorolac 60 MG/2 ML SDV IM ONE (17:45)
[2018-03-31] MEDS: Ondansetron 4 MG Tab.DIS PO ONE (17:45)
[2018-03-31] MEDS: oxyCODONE 5 MG Tab PO ONE (17:55)
--- NOTE | 2018-03-31 18:25 | EDM.PDOC ---
ED HPI GENERAL MEDICAL PROBLEM - General Chief Complaint: ENT Problem Stated Complaint: tooth extraction, pain Time Seen by Provider: 03/31/18 17:15 Source of Information: Reports: Patient History Limitations: Reports: No Limitations - History of Present Illness INITIAL COMMENTS - FREE TEXT/NARRATIVE: Patient complaining of severe right lower jaw pain s/p tooth extraction. Molar removed this morning. Received T#3 and took it several hours ago. Says it did not help pain at all. Mild nausea. No other changes reported. Treatments MATERIAL MOVERS: Reports: Acetaminophen Right Lower Tooth/Teeth Pain Score (Numeric/FACES): 10 - Related Data Allergies Allergy/AdvReac Type Severity Reaction Status Date / Time sumatriptan [From Imitrex] Allergy Hypertensio Verified 03/31/18 16:55 n sumatriptan succinate Allergy Hypertensio Verified 03/31/18 16:55 [From Imitrex] n Home Meds: Home Meds Lisinopril [Prinivil] 20 mg PO DAILY 05/10/14 [History] PARoxetine [Paxil] 40 mg PO DAILY 05/10/14 [History] Verapamil HCl [Verapamil ER] 120 mg PO DAILY 05/10/14 [History] Ibuprofen 600 mg PO Q6H PRN 02/20/15 [History] metFORMIN [Glucophage] 1 tab PO BID 02/20/15 [History] Aspirin [Maximiliano Chewable Aspirin] 81 mg PO DAILY 09/13/16 [History] SitaGLIPtin [Januvia] 100 mg PO DAILY 09/13/16 [History] Acetaminophen with Codeine [Tylenol with Codeine #3 Tablet] 1 tab PO Q4H PRN 09/08 [History] Amoxicillin 03/31/18 [History] Past Medical History HEENT History: Reports: Allergic Rhinitis, Impaired Vision, Other (See Below) Other HEENT History: Diabetic retinopathy, reading glasses Cardiovascular History: Reports: High Cholesterol, Hypertension, Other (See Below) Other Cardiovascular History: History of hyperlipidemia with fatty liver by CT scan Respiratory History: Reports: Intubation, Previous, Sleep Apnea, Other (See Below) Other Respiratory History: Noncompliant with CPAP Gastrointestinal History: Reports: Cholelithiasis, GERD, Hiatal Hernia Other Gastrointestinal History: Note history of Monica fundoplication and cholecystectomy as below Genitourinary History: Reports: Renal Calculus, Other (See Below) Other Genitourinary History: Bilateral nephrolithiasis by CT scan with no previous symptoms Musculoskeletal History: Reports: Back Pain, Chronic, Neck Pain, Chronic, Osteoarthritis, Other (See Below) Other Musculoskeletal History: Positive BETHANIE in July 2016 Neurological History: Reports: Headaches, Chronic, Head Trauma, Migraines, Other (See Below) Other Neuro History: Refractory recurrent migraine/tension headaches, head contusion without concussion on 04/25/16 Psychiatric History: Reports: Addiction, Anxiety, Depression, Other (See Below) Other Psychiatric History: history of previous chronic narcotic use Endocrine/Metabolic History: Reports: Diabetes, Type II Hematologic History: Reports: Blood Transfusion(s), Other (See Below) Other Hematologic History: Blood transfusions at time of Monica fundoplication Immunologic History: Reports: None, Other (See Below) Other Immunologic History: Note previous negative workup for positive BETHANIE Oncologic (Cancer) History: Reports: None Dermatologic History: Reports: Eczema, Venous Stasis Dermatitis Other Dermatologic History: Venous stasis dermatitis - Infectious Disease History Infectious Disease History: Reports: Chicken Pox - Past Surgical History Head Surgeries/Procedures: Reports: None GI Surgical History: Reports: Appendectomy, Cholecystectomy, Colonoscopy, EGD, Hernia, Inguinal, Other (See Below) Male Surgical History: Reports: Circumcision, Vasectomy, Other (See Below) Musculoskeletal Surgical History: Reports: Arthroscopic Knee, Arthroscopic Procedure, Shoulder Surgery, Other (See Below) Oncologic Surgical History: Reports: None - Past Imaging History Past Imaging History: Reports: Angiography, CAT Scan, Stress Testing, Upper GI X -Ray/Series, Other (See Below) Social & Family History - Family History Cardiac: Reports: CAD, [place], Stent, Other (See Below) Other Cardiac Family History: History of early heart attacks in family, including brother in his 50s another brother in his 60s with both brothers having PTCA/stents Neurological: Reports: Parkinson's, Other (See Below) Other Neurological Family History: Maternal aunt with Parkinson's disease - Tobacco Use Smoking Status *Q: Never Smoker - Caffeine Use Caffeine Use: Reports: Coffee, Soda. Denies: Energy Drinks, Tea Caffeine Use Comment: One cup of coffee per day, 2 sodas per day - Recreational Drug Use Recreational Drug Use: No - Living Situation & Occupation Living situation: Reports: , with Family Occupation: Employed ED ROS ENT - Review of Systems Review Of Systems: ROS reveals no pertinent complaints other than HPI. ED EXAM, ENT - Physical Exam Exam: See Below Exam Limited By: No Limitations General Appearance: Alert, WD/WN, Severe Distress (patient continuously moaning/ spitting into trash can, rolling around ER bed. ) Eye Exam: Bilateral Eye: EOMI, PERRL Nose: No: Nasal Deformity, Nasal Discharge, Nasal Swelling Mouth/Throat: Other (sutures noted over site of molar extraction, most posterior position right lower jaw. ) Head: Atraumatic, Normocephalic. No: Facial Swelling Neck: Supple, Full Range of Motion Respiratory/Chest: No Respiratory Distress Extremities: Normal Capillary Refill Neurological: Alert, Oriented, Normal Cognition, Normal Gait Psychiatric: Anxious Skin: Warm, Dry, Intact, Normal Color ED ENT PROCEDURES - Additional/Other Procedure(s) Other (Free Text) Procedure(s): Dental block attempted x2 4ml Marcaine mixed with 1ml 1% Lidocaine mixed in syringe. 3ml of solution injected into gum. Patient observed for 20min. Some improvement of pain along with improved BP/pulse rate. Second attempt performed with needle aimed medial to site of 1st injection. 2ml injected. Patient observed for response. Pain improved from 10/10 to 5/10. Course - Vital Signs Last Recorded V/S: Last Vital Signs Temp 37.0 C 03/31/18 17:00 Pulse 88 03/31/18 17:43 Resp 19 03/31/18 17:14 BP 135/74 03/31/18 17:43 Pulse Ox 100 03/31/18 17:43 - Orders/Labs/Meds Meds: Medications Discontinued Medications Generic Name Dose Route Start Last Admin Trade Name Ama PRN Reason Stop Dose Admin Bupivacaine HCl Confirm 03/31/18 17:26 Marcaine 0.5% Administered 03/31/18 17:27 Dose 30 ml .ROUTE .STK-MED ONE Ketorolac Tromethamine 60 mg 03/31/18 17:36 03/31/18 17:45 Toradol IM 03/31/18 17:37 60 mg ONETIME ONE Administration Ondansetron HCl 4 mg 03/31/18 17:35 03/31/18 17:45 Zofran Odt PO 03/31/18 17:36 4 mg ONETIME ONE Administration Oxycodone HCl 10 mg 03/31/18 17:36 03/31/18 17:55 Oxycodone PO 03/31/18 17:37 10 mg ONETIME ONE Administration - Re-Assessments/Exams Free Text/Narrative Re-Assessment/Exam: 03/31/18 18:38 Pain improved after dental blocks given. Toradol, Zofran, and 10mg dose Oxycodone also given. Discussed patient with , dentist who performed tooth extraction earlier in day. is willing to see patient tonight if needed, otherwise will see patient in the morning. Patient given dentist's phone number to contact him after discharge to arrange follow up plans. Recommended regular dosing of Tylenol #3 and Ibuprofen that patient has at home to help avoid return of more severe pain over the next 24-48 hours. To follow up otherwise as needed. Departure - Departure Time of Disposition: 18:41 Disposition: Home, Self-Care 01 Condition: Good Clinical Impression: Pain, dental, Status post tooth extraction - Discharge Information Instructions: Dental Extraction, [id number] Referrals: Deana Hardy NP [Primary Care Provider] - Additional Instructions: Call Dr. Stout this evening. Discuss if you should see him tonight or in morning. It is possible that you could get even better relief if he performs an additional dental block. Take ibuprofen 400mg every 4-6 hours (with food) Take the T#3 two tablet every 6 hours (can take every 4 if needed, also with food) Set an alarm so you do not miss doses over the next 24 hours. Follow up with dentist as soon as possible.
== END 2018-03-31 18:45 | disposition home or self-care (01) ==
LOC: LL.ED 16:49
DX: K08.89 Other specified disorders of teeth and supporting structures (principal); E78.00 Pure hypercholesterolemia, unspecified; I10 Essential (primary) hypertension; K21.9 Gastro-esophageal reflux disease without esophagitis; E11.319 Type 2 diabetes mellitus with unspecified diabetic retinopathy without macular edema; F41.9 Anxiety disorder, unspecified; F32.9 Major depressive disorder, single episode, unspecified; E78.5 Hyperlipidemia, unspecified; Z87.442 Personal history of urinary calculi; Z79.84 Long term (current) use of oral hypoglycemic drugs; Z88.8 Allergy status to other drugs, medicaments and biological substances; Z79.899 Other long term (current) drug therapy; Z79.82 Long term (current) use of aspirin; Z90.49 Acquired absence of other specified parts of digestive tract; Z98.818 Other dental procedure status
CPT/HCPCS: 64400; 96372; 99283; A9270-GY; J1885

== ENCOUNTER 2018-08-23 02:12 | Emergency (ER) | payer BC ==
[2018-08-23] MEDS ORDERED: Sodium Chloride 0.9% 10 ML Syringe FLUSH PRN (02:21)
[2018-08-23] MEDS ORDERED: Pantoprazole 40 MG Vial IVPUSH ONE (02:23)
[2018-08-23] MEDS ORDERED: Ondansetron 4 MG/2 ML SDV IVPUSH ONE (02:23)
[2018-08-23] MEDS ORDERED: fentaNYL 100 MCG/2 ML SDV IVPUSH ONE (02:24)
[2018-08-23] MEDS ORDERED: Sodium Chloride 0.9% 1,000 ML IV SCH (02:30)
--- NOTE | 2018-08-23 02:42 | EDM.PDOC ---
ED HPI GENERAL MEDICAL PROBLEM - General Chief Complaint: Abdominal Pain Stated Complaint: abdominal pain, nausea Time Seen by Provider: 08/23/18 02:15 Source of Information: Reports: Patient, Family History Limitations: Reports: No Limitations - History of Present Illness INITIAL COMMENTS - FREE TEXT/NARRATIVE: Patient is a 53-year-old gentleman who was [place] car [place] his with severe abdominal pain states that he had gone into the bathroom and see her mom and he was laying in the ground he had severe abdominal pain. He feels like he is to vomiting has history of diabetes and had a niece and wrap secondary to reflux. Onset: Sudden Duration: Minutes:, Getting Worse Location: Reports: Chest, Abdomen Quality: Reports: Sharp, Stabbing Severity: Severe Improves with: Reports: Medication Worsens with: Reports: None abdominal pain Pain Score (Numeric/FACES): 10 - Related Data Allergies Allergy/AdvReac Type Severity Reaction Status Date / Time sumatriptan [From Imitrex] Allergy Hypertensio Verified 08/23/18 02:19 n sumatriptan succinate Allergy Hypertensio Verified 08/23/18 02:19 [From Imitrex] n Home Meds: Home Meds Lisinopril [Prinivil] 20 mg PO DAILY 05/10/14 [History] Verapamil HCl [Verapamil ER] 120 mg PO DAILY 05/10/14 [History] Ibuprofen 600 mg PO Q6H PRN 02/20/15 [History] Past Medical History HEENT History: Reports: Allergic Rhinitis, Impaired Vision, Other (See Below) Other HEENT History: Diabetic retinopathy, reading glasses Cardiovascular History: Reports: High Cholesterol, Hypertension, Other (See Below) Other Cardiovascular History: History of hyperlipidemia with fatty liver by CT scan Respiratory History: Reports: Intubation, Previous, Sleep Apnea, Other (See Below) Other Respiratory History: Noncompliant with CPAP Gastrointestinal History: Reports: Cholelithiasis, GERD, Hiatal Hernia Other Gastrointestinal History: Note history of Monica fundoplication and cholecystectomy as below Genitourinary History: Reports: Renal Calculus, Other (See Below) Other Genitourinary History: Bilateral nephrolithiasis by CT scan with no previous symptoms Musculoskeletal History: Reports: Back Pain, Chronic, Neck Pain, Chronic, Osteoarthritis, Other (See Below) Other Musculoskeletal History: Positive BETHANIE in July 2016 Neurological History: Reports: Headaches, Chronic, Head Trauma, Migraines, Other (See Below) Other Neuro History: Refractory recurrent migraine/tension headaches, head contusion without concussion on 04/25/16 Psychiatric History: Reports: Addiction, Anxiety, Depression, Other (See Below) Other Psychiatric History: history of previous chronic narcotic use Endocrine/Metabolic History: Reports: Diabetes, Type II Hematologic History: Reports: Blood Transfusion(s), Other (See Below) Other Hematologic History: Blood transfusions at time of Monica fundoplication Immunologic History: Reports: None, Other (See Below) Other Immunologic History: Note previous negative workup for positive BETHANIE Oncologic (Cancer) History: Reports: None Dermatologic History: Reports: Eczema, Venous Stasis Dermatitis Other Dermatologic History: Venous stasis dermatitis - Infectious Disease History Infectious Disease History: Reports: Chicken Pox - Past Surgical History Head Surgeries/Procedures: Reports: None GI Surgical History: Reports: Appendectomy, Cholecystectomy, Colonoscopy, EGD, Hernia, Inguinal, Other (See Below) Male Surgical History: Reports: Circumcision, Vasectomy, Other (See Below) Musculoskeletal Surgical History: Reports: Arthroscopic Knee, Arthroscopic Procedure, Shoulder Surgery, Other (See Below) Oncologic Surgical History: Reports: None - Past Imaging History Past Imaging History: Reports: Angiography, CAT Scan, Stress Testing, Upper GI X -Ray/Series, Other (See Below) Social & Family History - Family History Cardiac: Reports: CAD, [place], Stent, Other (See Below) Other Cardiac Family History: History of early heart attacks in family, including brother in his 50s another brother in his 60s with both brothers having PTCA/stents Neurological: Reports: Parkinson's, Other (See Below) Other Neurological Family History: Maternal aunt with Parkinson's disease - Caffeine Use Caffeine Use: Reports: Coffee, Soda. Denies: Energy Drinks, Tea Caffeine Use Comment: One cup of coffee per day, 2 sodas per day - Living Situation & Occupation Living situation: Reports: , with Family Occupation: Employed ED ROS GENERAL - Review of Systems Review Of Systems: See Below Constitutional: Reports: Weakness, Fatigue, Diaphoresis HEENT: Reports: No Symptoms Respiratory: Reports: No Symptoms Cardiovascular: Reports: No Symptoms Endocrine: Reports: No Symptoms GI/Abdominal: Reports: Abdominal Pain : Reports: No Symptoms Musculoskeletal: Reports: No Symptoms Skin: Reports: No Symptoms Neurological: Reports: No Symptoms ED EXAM, GI/ABD - Physical Exam Exam: See Below Exam Limited By: No Limitations General Appearance: Alert, WD/WN, No Apparent Distress Eyes: Bilateral: Normal Appearance, EOMI Ears: Normal External Exam, Normal Canal, Hearing Grossly Normal, Normal TMs Nose: Normal Inspection, Normal Mucosa, No Blood Throat/Mouth: Normal Inspection, Normal Lips, Normal Teeth, Normal Gums, Normal Oropharynx, Normal Voice, No Airway Compromise Head: Atraumatic, Normocephalic Neck: Normal Inspection, Supple, Non-Tender, Full Range of Motion Respiratory/Chest: No Respiratory Distress, Lungs Clear, Normal Breath Sounds, No Accessory Muscle Use, Chest Non-Tender Cardiovascular: Normal Peripheral Pulses, Regular Rate, Rhythm, No Edema, No Gallop, No JVD, No Murmur, No Rub GI/Abdominal Exam: Soft, No Organomegaly, No Distention, Tender (Male) Exam: Deferred Rectal (Males) Exam: Deferred Extremities: Normal Inspection, Normal Range of Motion, Non-Tender, Normal Capillary Refill, No Pedal Edema Neurological: Alert, Oriented, CN II-XII Intact, Normal Cognition, Normal Gait, Normal Reflexes, No Motor/Sensory Deficits Psychiatric: Normal Affect, Normal Mood Skin Exam: Warm, Dry, Intact, Normal Color, No Rash Lymphatic: No Adenopathy Course - Vital Signs Last Recorded V/S: Last Vital Signs Temp 97.6 F 08/23/18 02:13 Pulse 87 08/23/18 02:13 Resp 14 08/23/18 02:13 BP 117/59 L 08/23/18 02:13 Pulse Ox 100 08/23/18 02:13 - Orders/Labs/Meds Orders: Active Orders 24 hr Category Date Time Status Accu Check [Blood Glucose Check, Bedside] [RC] ONETIME Care 08/23/18 05:30 Active Abdomen 2V AP Flat Upright [CR] Stat Exams 08/23/18 02:27 Taken Chest 2V [CR] Stat Exams 08/23/18 02:26 Ordered CBC W/O DIFF,HEMOGRAM [HEME] AM Lab 08/23/18 05:11 Ordered Sodium Chloride 0.9% [Normal Saline] 1,000 ml Med 08/23/18 02:30 Active IV ASDIRECTED Sodium Chloride 0.9% [Saline Flush] Med 08/23/18 02:21 Active 10 ml FLUSH ASDIRECTED PRN Saline Lock Insert [OM.PC] Stat Oth 08/23/18 02:22 Ordered Medication Orders Sodium Chloride (Normal Saline) 1,000 mls @ 150 mls/hr IV ASDIRECTED WILLY Last Admin: 08/23/18 03:20 Dose: 150 mls/hr Sodium Chloride (Saline Flush) 10 ml FLUSH ASDIRECTED PRN PRN Reason: Keep Vein Open Labs: Laboratory Tests 08/23/18 08/23/18 08/23/18 Range/Units 02:48 02:48 02:48 WBC 13.6 H (4.0-10.2) K/uL RBC 4.24 L (4.33-5.41) M/uL Hgb 12.7 L D (13.1-16.8) g/dL Hct 37.6 L (39.0-49.0) % MCV 88.7 D (84.0-98.0) fL MCH 30.0 (28.2-33.3) pg MCHC 33.8 (31.7-36.0) g/dL RDW 12.5 (11.2-14.1) % Plt Count 221 (150-350) K/uL Neut % (Auto) 71.8 (45.0-80.0) % Lymph % (Auto) 19.9 (10.0-50.0) % Ferry % (Auto) 7.9 (2.0-14.0) % Eos % (Auto) 0.3 (0.0-5.0) % Baso % (Auto) 0.1 (0.0-2.0) % Neut # (Auto) 9.79 H (1.40-7.00) K/uL Lymph # (Auto) 2.71 (0.50-3.50) K/uL Ferry # (Auto) 1.07 H (0.00-1.00) K/uL Eos # (Auto) 0.04 (0.00-0.50) K/uL Baso # (Auto) 0.02 (0.00-0.20) K/uL Sodium 136 (136-145) mmol/L Potassium 5.2 H D (3.5-5.1) mmol/L Chloride 101 (98-107) mmol/L Carbon Dioxide 23.6 (21.0-32.0) mmol/L BUN 45 H D (7-18) mg/dL Creatinine 0.91 (0.51-1.17) mg/dL Est Cr Clr Drug Dosing 104.87 mL/min Estimated GFR (MDRD) > 60 mL/min Glucose 441 H* (74-106) mg/dL Hemoglobin A1c 7.9 H (4.3-5.7) % Calcium 9.9 (8.5-10.1) mg/dL Total Bilirubin 0.5 (0.2-1.0) mg/dL AST 7 L (15-37) U/L ALT 25 (12-78) U/L Alkaline Phosphatase 75 (46-116) IU/L Total Protein 6.0 L (6.4-8.2) g/dL Albumin 3.3 L (3.4-5.0) g/dL Meds: Medications Generic Name Dose Route Start Last Admin Trade Name Freq PRN Reason Stop Dose Admin Sodium Chloride 1,000 mls @ 150 mls/hr 08/23/18 02:30 08/23/18 03:20 Normal Saline IV 150 mls/hr ASDIRECTED WILLY Administration Sodium Chloride 10 ml 08/23/18 02:21 Saline Flush FLUSH ASDIRECTED PRN Keep Vein Open Discontinued Medications Generic Name Dose Route Start Last Admin Trade Name Freq PRN Reason Stop Dose Admin Fentanyl 50 mcg 08/23/18 02:24 08/23/18 02:47 Sublimaze IVPUSH 08/23/18 02:25 50 mcg ONETIME ONE Administration Insulin Aspart 10 unit 08/23/18 03:20 08/23/18 03:25 Novolog SUBCUT 08/23/18 03:21 10 unit ONETIME ONE Administration Protocol Ondansetron HCl 4 mg 08/23/18 02:23 08/23/18 02:48 Zofran IVPUSH 08/23/18 02:24 4 mg ONETIME ONE Administration Pantoprazole Sodium 40 mg 08/23/18 02:23 08/23/18 02:48 Protonix Iv IVPUSH 08/23/18 02:24 40 mg ONETIME ONE Administration Departure - Departure Time of Disposition: 05:30 Disposition: Home, Self-Care 01 Condition: Fair Clinical Impression: Status post laparoscopic Monica fundoplication, Acute hyperglycemia Abdominal pain Qualifiers: Abdominal location: epigastric Qualified Code(s): R10.13 - Epigastric pain - Discharge Information *PRESCRIPTION DRUG MONITORING PROGRAM REVIEWED*: Yes *COPY OF PRESCRIPTION DRUG MONITORING REPORT IN PATIENT RUPERTO: Yes Referrals: Deana Hardy [employer] [Primary Care Provider] - Forms: ED Department Discharge Care Plan Goals: Patient doing much better pain seems controlled tolerated fluids orally will continue with IV fluids and recheck glucose in 2 hours before sending him home pain is controlled at this time - My Orders Last 24 Hours: My Active Orders 08/23/18 02:21 Sodium Chloride 0.9% [Saline Flush] 10 ml FLUSH ASDIRECTED PRN 08/23/18 02:22 Saline Lock Insert [OM.PC] Stat 08/23/18 02:26 Chest 2V [CR] Stat 08/23/18 02:27 Abdomen 2V AP Flat Upright [CR] Stat 08/23/18 02:30 Sodium Chloride 0.9% [Normal Saline] 1,000 ml IV ASDIRECTED 08/23/18 05:11 CBC W/O DIFF,HEMOGRAM [HEME] AM 08/23/18 05:30 Accu Check [Blood Glucose Check, Bedside] [RC] ONETIME - Assessment/Plan Last 24 Hours: My Active Orders 08/23/18 02:21 Sodium Chloride 0.9% [Saline Flush] 10 ml FLUSH ASDIRECTED PRN 08/23/18 02:22 Saline Lock Insert [OM.PC] Stat 08/23/18 02:26 Chest 2V [CR] Stat 08/23/18 02:27 Abdomen 2V AP Flat Upright [CR] Stat 08/23/18 02:30 Sodium Chloride 0.9% [Normal Saline] 1,000 ml IV ASDIRECTED 08/23/18 05:11 CBC W/O DIFF,HEMOGRAM [HEME] AM 08/23/18 05:30 Accu Check [Blood Glucose Check, Bedside] [RC] ONETIME
[2018-08-23 03:13] LABS: CHLORIDE,CL 101 mmol/L (98-107); SODIUM,NA 136 mmol/L (136-145)
[2018-08-23] MEDS ORDERED: Insulin Aspart 100 Units/ML 3 ML Pen SUBCUT ONE (03:20)
[2018-08-23 04:21] VITALS: BP 145/70
== END 2018-08-23 05:40 | disposition home or self-care (01) ==
LOC: LL.ED 02:12
DX: R10.13 Epigastric pain (principal); E11.65 Type 2 diabetes mellitus with hyperglycemia; E11.319 Type 2 diabetes mellitus with unspecified diabetic retinopathy without macular edema; E78.00 Pure hypercholesterolemia, unspecified; I10 Essential (primary) hypertension; Z98.890 Other specified postprocedural states; Z88.8 Allergy status to other drugs, medicaments and biological substances; Z79.899 Other long term (current) drug therapy
CPT/HCPCS: 36415; 71046; 74019; 80053; 82962; 83036; 85025; 96361; 96372; 96374; 96375; 99284; C9113; J1815-GY; J2405; J3010; J7030

== ENCOUNTER 2019-01-22 19:22 | Emergency (ER) | payer BC ==
[2019-01-22 19:34] VITALS: BP 123/72
[2019-01-22] MEDS ORDERED: Sodium Chloride 0.9% 1,000 ML IV ONE ×2 (19:53→21:00)
[2019-01-22] MEDS ORDERED: Ondansetron 4 MG/2 ML SDV IVPUSH ONE (19:53)
[2019-01-22] MEDS ORDERED: Ketorolac 30 MG/ML SDV IVPUSH ONE (19:54)
[2019-01-22 20:08] LABS: CHLORIDE,CL 102 mmol/L (98-107); SODIUM,NA 136 mmol/L (136-145)
[2019-01-22] MEDS ORDERED: fentaNYL 100 MCG/2 ML SDV IVPUSH ONE (20:16)
--- NOTE | 2019-01-22 20:23 | EDM.PDOC ---
ED HPI GENERAL MEDICAL PROBLEM - General Chief Complaint: General Stated Complaint: FLU SYMPTOMS Time Seen by Provider: 01/22/19 20:00 Source of Information: Reports: Patient, Family History Limitations: Reports: No Limitations - History of Present Illness INITIAL COMMENTS - FREE TEXT/NARRATIVE: Patient comes to ER with complaint of SAL, body aches, nausea, diarrhea, and abdominal pain. Abdominal pain is relatively constant. Nothing really improves it, including having a bowel movement. History of Monica Wrap for reflux, unable to vomit. No antiemetics at home for him to use PRN. Stools non-bloody. No fevers. No cough/runny nose/sore throat/cold symptoms. No dysuria/UTI complaints. No rashes. had exact same symptoms starting one week ago on Wednesday. Diagnosed with Noro virus. Had 3 days of abdominal pain and GI symptoms. Says that her infection started out the same way. Patient has had appendix and gallbladder removed in past. Treatments SPRING MAKER: Reports: Acetaminophen, Other (see below) Other Treatments SPRING MAKER: tylenol at 1800 Headache Pain Score (Numeric/FACES): 9 Abdominal Pain Score (Numeric/FACES): 9 - Related Data Allergies Allergy/AdvReac Type Severity Reaction Status Date / Time sumatriptan [From Imitrex] Allergy Hypertensio Verified 01/22/19 19:34 n sumatriptan succinate Allergy Hypertensio Verified 01/22/19 19:34 [From Imitrex] n Home Meds: Home Meds Lisinopril [Prinivil] 20 mg PO DAILY 05/10/14 [History] Dicyclomine [Bentyl] 20 mg PO TID PRN #10 tab 01/22/19 [Rx] Metoprolol Tartrate 25 mg PO BID 01/22/19 [History] PARoxetine HCl [Paxil] 20 mg PO DAILY 01/22/19 [History] Pramipexole Di-HCl [Pramipexole Dihydrochloride] 0.125 mg PO BEDTIME 01/22/19 [ History] clonazePAM [Clonazepam] 0.5 mg PO BEDTIME 01/22/19 [History] metFORMIN HCl [Glucophage] 1,000 mg PO BID 01/22/19 [History] Past Medical History HEENT History: Reports: Allergic Rhinitis, Impaired Vision, Other (See Below) Other HEENT History: Diabetic retinopathy, reading glasses Cardiovascular History: Reports: High Cholesterol, Hypertension, Other (See Below) Other Cardiovascular History: History of hyperlipidemia with fatty liver by CT scan Respiratory History: Reports: Intubation, Previous, Sleep Apnea, Other (See Below) Other Respiratory History: Noncompliant with CPAP Gastrointestinal History: Reports: Cholelithiasis, GERD, Hiatal Hernia Other Gastrointestinal History: Note history of Monica fundoplication and cholecystectomy as below Genitourinary History: Reports: Renal Calculus, Other (See Below) Other Genitourinary History: Bilateral nephrolithiasis by CT scan with no previous symptoms Musculoskeletal History: Reports: Back Pain, Chronic, Neck Pain, Chronic, Osteoarthritis, Other (See Below) Other Musculoskeletal History: Positive BETHANIE in July 2016 Neurological History: Reports: Headaches, Chronic, Head Trauma, Migraines, Other (See Below) Other Neuro History: Refractory recurrent migraine/tension headaches, head contusion without concussion on 04/25/16 Psychiatric History: Reports: Addiction, Anxiety, Depression, Other (See Below) Other Psychiatric History: history of previous chronic narcotic use Endocrine/Metabolic History: Reports: Diabetes, Type II Hematologic History: Reports: Blood Transfusion(s), Other (See Below) Other Hematologic History: Blood transfusions at time of Monica fundoplication Immunologic History: Reports: None, Other (See Below) Other Immunologic History: Note previous negative workup for positive BETHANIE Oncologic (Cancer) History: Reports: None Dermatologic History: Reports: Eczema, Venous Stasis Dermatitis Other Dermatologic History: Venous stasis dermatitis - Infectious Disease History Infectious Disease History: Reports: Chicken Pox - Past Surgical History Head Surgeries/Procedures: Reports: None GI Surgical History: Reports: Appendectomy, Cholecystectomy, Colonoscopy, EGD, Hernia, Inguinal, Other (See Below) Male Surgical History: Reports: Circumcision, Vasectomy, Other (See Below) Musculoskeletal Surgical History: Reports: Arthroscopic Knee, Arthroscopic Procedure, Shoulder Surgery, Other (See Below) Oncologic Surgical History: Reports: None - Past Imaging History Past Imaging History: Reports: Angiography, CAT Scan, Stress Testing, Upper GI X -Ray/Series, Other (See Below) Social & Family History - Family History Cardiac: Reports: CAD, [place], Stent, Other (See Below) Other Cardiac Family History: History of early heart attacks in family, including brother in his 50s another brother in his 60s with both brothers having PTCA/stents Neurological: Reports: Parkinson's, Other (See Below) Other Neurological Family History: Maternal aunt with Parkinson's disease - Tobacco Use Smoking Status *Q: Never Smoker - Caffeine Use Caffeine Use: Reports: Coffee, Soda. Denies: Energy Drinks, Tea Caffeine Use Comment: One cup of coffee per day, 2 sodas per day - Living Situation & Occupation Living situation: Reports: , with Family Occupation: Employed ED ROS GENERAL - Review of Systems Review Of Systems: ROS reveals no pertinent complaints other than HPI. ED EXAM, GENERAL - Physical Exam Exam: See Below Exam Limited By: No Limitations General Appearance: Alert, Moderate Distress (laying on left side, uncomfortable ) Eye Exam: Bilateral Eye: EOMI, PERRL Ears: Hearing Grossly Normal Nose: No: Nasal Drainage Throat/Mouth: Normal Voice, No Airway Compromise Head: Atraumatic, Normocephalic Neck: Supple Respiratory/Chest: No Respiratory Distress, Lungs Clear, Normal Breath Sounds, No Accessory Muscle Use, Chest Non-Tender Cardiovascular: Regular Rate, Rhythm, No Murmur Peripheral Pulses: 2+: Radial (L), Radial (R) GI/Abdominal: Guarding (mild guarding with abdominal palpation), Tender ( generalized tenderness throughout all 4 quadrants), Abnormal Bowel Sounds ( decreased bowel sounds throughout). No: Rigid, Rebound (Male) Exam: Deferred Rectal (Males) Exam: Deferred Back Exam: Normal Inspection. No: CVA Tenderness (L), CVA Tenderness (R) Extremities: Normal Inspection, Normal Range of Motion, No Pedal Edema, Normal Capillary Refill Neurological: Alert, Oriented, No Motor/Sensory Deficits Psychiatric: Anxious Skin Exam: Warm, Dry, Intact, Normal Color Course - Vital Signs Last Recorded V/S: Last Vital Signs Temp 36.4 C 01/22/19 19:23 Pulse 77 01/22/19 19:23 Resp 16 01/22/19 19:23 BP 123/72 01/22/19 19:23 Pulse Ox 99 01/22/19 19:23 - Orders/Labs/Meds Orders: Active Orders 24 hr Category Date Time Status Abdomen 2V AP Flat Upright [CR] Stat Exams 01/22/19 20:17 Taken Labs: Laboratory Tests 01/22/19 01/22/19 01/22/19 Range/Units 19:50 19:52 19:59 WBC 5.0 (4.0-10.2) K/uL RBC 4.88 (4.33-5.41) M/uL Hgb 11.8 L D (13.1-16.8) g/dL Hct 36.9 L (39.0-49.0) % MCV 75.6 L D (84.0-98.0) fL MCH 24.2 L (28.2-33.3) pg MCHC 32.0 (31.7-36.0) g/dL RDW 21.3 H (11.2-14.1) % Plt Count 197 D (150-350) K/uL Neut % (Auto) 74.6 (45.0-80.0) % Lymph % (Auto) 14.0 (10.0-50.0) % [place] % (Auto) 8.4 (2.0-14.0) % Eos % (Auto) 2.6 (0.0-5.0) % Baso % (Auto) 0.4 (0.0-2.0) % Neut # (Auto) 3.72 (1.40-7.00) K/uL Lymph # (Auto) 0.70 (0.50-3.50) K/uL [place] # (Auto) 0.42 (0.00-1.00) K/uL Eos # (Auto) 0.13 (0.00-0.50) K/uL Baso # (Auto) 0.02 (0.00-0.20) K/uL Sodium 136 (136-145) mmol/L Potassium 3.4 L D (3.5-5.1) mmol/L Chloride 102 (98-107) mmol/L Carbon Dioxide 24.3 (21.0-32.0) mmol/L BUN 8 D (7-18) mg/dL Creatinine 0.88 (0.51-1.17) mg/dL Est Cr Clr Drug Dosing 108.45 mL/min Estimated GFR (MDRD) > 60 mL/min Glucose 153 H (74-106) mg/dL Calcium 9.4 (8.5-10.1) mg/dL Total Bilirubin 0.8 (0.2-1.0) mg/dL AST 18 (15-37) U/L ALT 22 (12-78) U/L Alkaline Phosphatase 89 (46-116) IU/L Total Protein 6.4 (6.4-8.2) g/dL Albumin 3.7 (3.4-5.0) g/dL Specimen Type Urinvoid Urine Color Yellow Urine Appearance Clear Urine pH 7.0 (5.0-9.0) Ur Specific [place] 1.010 (1.005-1.030) Urine Protein Negative (NEGATIVE) mg/dL Urine Glucose (UA) Negative (NEGATIVE) mg/dL Urine Ketones Negative (NEGATIVE) mg/dL Urine Occult Blood Negative (NEGATIVE) Urine Nitrite Negative (NEGATIVE) Urine Bilirubin Negative (NEGATIVE) Urine Urobilinogen 0.2 (0.2-1.0) E.U./dL Ur Leukocyte Esterase Negative (NEGATIVE) Urine RBC Not seen /HPF Urine WBC 0-5 /HPF Ur Epithelial Cells Occasional /LPF Urine Bacteria Occasional (NONE TO FEW) /HPF Meds: Medications Discontinued Medications Generic Name Dose Route Start Last Admin Trade Name Freq PRN Reason Stop Dose Admin Fentanyl 100 mcg 01/22/19 20:16 01/22/19 20:25 Sublimaze IVPUSH 01/22/19 20:17 100 mcg ONETIME ONE Administration Sodium Chloride 1,000 mls @ 999 mls/hr 01/22/19 19:53 01/22/19 19:58 Normal Saline IV 01/22/19 20:53 999 mls/hr .BOLUS ONE Administration Sodium Chloride 1,000 mls @ 999 mls/hr 01/22/19 21:00 01/22/19 21:06 Normal Saline IV 01/22/19 22:00 999 mls/hr .BOLUS ONE Administration Ketorolac Tromethamine 30 mg 01/22/19 19:54 01/22/19 20:01 Toradol IVPUSH 01/22/19 19:55 30 mg ONETIME ONE Administration Loperamide HCl 4 mg 01/22/19 21:13 Imodium Ad PO 01/22/19 21:14 ONETIME ONE Ondansetron HCl 4 mg 01/22/19 19:53 01/22/19 20:01 Zofran IVPUSH 01/22/19 19:54 4 mg ONETIME ONE Administration Potassium Chloride 20 meq 01/22/19 20:55 01/22/19 21:05 Klor-Con 10 PO 01/22/19 20:56 20 meq ONETIME ONE Administration Potassium Chloride 10 meq 01/22/19 22:00 01/22/19 22:07 Klor-Con 10 PO 01/22/19 22:01 10 meq ONETIME ONE Administration Promethazine HCl 25 mg 01/22/19 22:00 01/22/19 22:07 Phenergan PO 01/22/19 22:01 25 mg ONETIME ONE Administration - Radiology Interpretation Free Text/Narrative:: Several air/fluid levels suspected on abdominal films. No obstruction suggested. - Re-Assessments/Exams Free Text/Narrative Re-Assessment/Exam: 01/22/19 20:26 IV access obtained. Patient received Zofran and Toradol IV. Later Fentanyl added to help with abdominal pain. NS bolus ordered. WBC normal. K 3.4 Influenza negative Known household exposure to Norovirus as stated in HPI. High suspicion that this is due to same virus. Oral K ordered. Patient willing to get potassium level rechecked tomorrow at clinic. Admission to observation offered to patient given his pain complaints, but he preferred to go home. Precautions reviewed with patient and . She was given Zofran ODT this past week for her infection and says that there are plenty left at home. They did not wish to have a new prescription. They were given OK to use the Zofran they have available, one tablet every 6 hours as needed. 01/22/19 20:51 Patient appears to be much improved based on overall appearance. Seems much more at ease. He is sitting up, making more eye contact. However he says that he has had no improvement at all with abdominal pain. It was discussed with him that it would be unrealistic to expect complete resolution of body aches/ discomfort and that 1-3 days of abdominal cramping and aches is usually noted for Norovirus and other viruses causing gastroenteritis. 01/22/19 22:10 IV fluids complete. Phenergan and additional potassium given PO. Patient continues to appear more relaxed and comfortable. Rx for Bentyl for prn use to help with abdominal cramping dispensed. Total of ten tablets. Departure - Departure Time of Disposition: 22:08 Disposition: Home, Self-Care 01 Condition: Good Clinical Impression: Gastroenteritis - Discharge Information *PRESCRIPTION DRUG MONITORING PROGRAM REVIEWED*: Not Applicable *COPY OF PRESCRIPTION DRUG MONITORING REPORT IN PATIENT RUPERTO: Not Applicable Prescriptions: Dicyclomine [Bentyl] 20 mg PO TID PRN #10 tab PRN Reason: Cramping Instructions: Norovirus Infection Referrals: Deana Hardy NP [Primary Care Provider] - Forms: ED Department Discharge, ED Return to Work/School Form Additional Instructions: OK to use the Zofran ODT you have at home for nausea. Take one tablet every 6 hours for the next 24 hours then go to as needed use. Stay hydrated. Drink water. You can make your own electrolyte solution by mixing in a pinch of sea salt and NoSalt in your water. That will help replace salt and potassium. Avoid solid food for now. OK to try broths. Advance diet as tolerated when you are feeling better. Follow up tomorrow at your local clinic and get your potassium level rechecked. If it is still low, formulate a plan for potassium supplementation and further rechecks with your provider. Bentyl can be taken once every 8 hours and helps with abdominal/intestinal cramping. You will have cramping and abdominal discomfort from the virus. There is no medication that can take this away fully. OK to take Tylenol or ibuprofen for discomfort. If you feel you need anything stronger tomorrow you will need to discuss this with your primary provider. Follow up at clinic or ER as needed otherwise if you have worsening problems. - My Orders Last 24 Hours: My Active Orders 01/22/19 20:17 Abdomen 2V AP Flat Upright [CR] Stat - Assessment/Plan Last 24 Hours: My Active Orders 01/22/19 20:17 Abdomen 2V AP Flat Upright [CR] Stat
[2019-01-22] MEDS ORDERED: Potassium Chloride 10 MEQ Tab.ER PO ONE ×2 (20:55→22:00)
[2019-01-22] MEDS ORDERED: Loperamide 2 MG Tab PO ONE (21:13)
[2019-01-22] MEDS ORDERED: Promethazine 25 MG Tab PO ONE (22:00)
== END 2019-01-22 22:15 | disposition home or self-care (01) ==
LOC: LL.ED 19:22
DX: K52.9 Noninfective gastroenteritis and colitis, unspecified (principal); E78.00 Pure hypercholesterolemia, unspecified; E78.5 Hyperlipidemia, unspecified; E11.319 Type 2 diabetes mellitus with unspecified diabetic retinopathy without macular edema; F41.9 Anxiety disorder, unspecified; F32.9 Major depressive disorder, single episode, unspecified; Z79.84 Long term (current) use of oral hypoglycemic drugs; Z79.899 Other long term (current) drug therapy
CPT/HCPCS: 36415; 74019; 80053; 81001; 85025; 87804; 96361; 96374; 96375; 99284-25; A9270-GY; J1885; J2405; J3010; J7030

== ENCOUNTER 2019-08-09 10:43 | Emergency (ER) | payer BC ==
[2019-08-09] MEDS ORDERED: Sodium Chloride 0.9% 10 ML Syringe FLUSH PRN (11:10)
[2019-08-09] MEDS: HYDROmorphone 2 MG/ML SDV IM ONE (11:50)
[2019-08-09] MEDS: Sucralfate Suspension 1 GM/10 ML Cup PO ONE (11:50)
[2019-08-09] MEDS: Ondansetron 4 MG Tab.DIS PO ONE (11:50)
[2019-08-09 11:57] LABS: CHLORIDE,CL 102 mmol/L (98-107); SODIUM,NA 139 mmol/L (136-145)
[2019-08-09] MEDS: Pantoprazole 40 MG Vial IVPUSH SCH (14:12)
[2019-08-09] MEDS: Sodium Chloride 0.9% 1,000 ML IV SCH (14:12)
[2019-08-09] MEDS: HYDROmorphone 1 MG/ML Syringe IVPUSH ONE (14:15)
[2019-08-09] MEDS: Lidocaine 2% Viscous Solution 15 ML Cup ONE (14:51)
[2019-08-09] MEDS: Promethazine 25 MG/ML SDV ONE (14:57)
[2019-08-09] MEDS: Promethazine 12.5 MG in Sodium Chloride 0.9% 100 ML IV ONE (15:00)
--- NOTE | 2019-08-09 15:18 | PCM.SN ---
- Free Text/Narrative Note: Admission orders entered in error. These were stopped.
[2019-08-09] MEDS: Diatrizoate Meglumine/Diatrizoate Sodium 37% 30 ML Bottle PO ONE (16:31)
[2019-08-09] MEDS: Iopamidol 612 MG/ML 100 ML Bottle IVPUSH ONE (16:31)
[2019-08-09] MEDS: Sucralfate Suspension 1 GM/10 ML Cup PO SCH (17:21)
--- NOTE | 2019-08-09 17:24 | EDM.PDOC ---
ED HPI GENERAL MEDICAL PROBLEM - General Chief Complaint: Abdominal Pain Stated Complaint: Nausea, Abd pain Time Seen by Provider: 08/09/19 11:00 Source of Information: Reports: Patient, Family History Limitations: Reports: No Limitations - History of Present Illness INITIAL COMMENTS - FREE TEXT/NARRATIVE: Patient seen with severe epigastric pain patient has history of Mgiuel wrap complained of nausea and epigastric pain at this time the diagnosis of gastritis was entertained an NG was placed Carafate given pain control with Dilaudid IV patient slept quite well we'll discharge him home on Carafate 1 g every 6 hours Onset: Today Duration: Hour(s):, Improving Location: Reports: Abdomen Quality: Reports: Ache, Sharp Severity: Moderate Improves with: Reports: Medication Worsens with: Reports: None Associated Symptoms: Reports: Nausea/Vomiting Abdominal Pain Score (Numeric/FACES): 5 - Related Data Allergies Allergy/AdvReac Type Severity Reaction Status Date / Time sumatriptan [From Imitrex] Allergy Hypertensio Verified 08/09/19 10:44 n sumatriptan succinate Allergy Hypertensio Verified 08/09/19 10:44 [From Imitrex] n Home Meds: Home Meds Lisinopril [Prinivil] 20 mg PO DAILY 05/10/14 [History] Metoprolol Tartrate 25 mg PO BID 01/22/19 [History] PARoxetine HCl [Paxil] 20 mg PO DAILY 01/22/19 [History] Pramipexole Di-HCl [Pramipexole Dihydrochloride] 0.125 mg PO BEDTIME 01/22/19 [ History] clonazePAM [Clonazepam] 0.5 mg PO BEDTIME 01/22/19 [History] metFORMIN HCl [Glucophage] 1,000 mg PO BID 01/22/19 [History] Omeprazole Magnesium [Prilosec Otc] 20 mg PO TID 08/09/19 [History] Sucralfate [Carafate] 1 gm PO Q6HR 30 Days #120 ml 08/09/19 [Rx] Past Medical History HEENT History: Reports: Allergic Rhinitis, Impaired Vision, Other (See Below) Other HEENT History: Diabetic retinopathy, reading glasses Cardiovascular History: Reports: High Cholesterol, Hypertension, Other (See Below) Other Cardiovascular History: History of hyperlipidemia with fatty liver by CT scan Respiratory History: Reports: Intubation, Previous, Sleep Apnea, Other (See Below) Other Respiratory History: Noncompliant with CPAP Gastrointestinal History: Reports: Cholelithiasis, GERD, Hiatal Hernia Other Gastrointestinal History: Note history of Monica fundoplication and cholecystectomy as below Genitourinary History: Reports: Renal Calculus, Other (See Below) Other Genitourinary History: Bilateral nephrolithiasis by CT scan with no previous symptoms Musculoskeletal History: Reports: Back Pain, Chronic, Neck Pain, Chronic, Osteoarthritis, Other (See Below) Other Musculoskeletal History: Positive BETHANIE in July 2016 Neurological History: Reports: Headaches, Chronic, Head Trauma, Migraines, Other (See Below) Other Neuro History: Refractory recurrent migraine/tension headaches, head contusion without concussion on 04/25/16 Psychiatric History: Reports: Addiction, Anxiety, Depression, Other (See Below) Other Psychiatric History: history of previous chronic narcotic use Endocrine/Metabolic History: Reports: Diabetes, Type II Hematologic History: Reports: Blood Transfusion(s), Other (See Below) Other Hematologic History: Blood transfusions at time of Monica fundoplication Immunologic History: Reports: None, Other (See Below) Other Immunologic History: Note previous negative workup for positive BETHANIE Oncologic (Cancer) History: Reports: None Dermatologic History: Reports: Eczema, Venous Stasis Dermatitis Other Dermatologic History: Venous stasis dermatitis - Infectious Disease History Infectious Disease History: Reports: Chicken Pox - Past Surgical History Head Surgeries/Procedures: Reports: None GI Surgical History: Reports: Appendectomy, Cholecystectomy, Colonoscopy, EGD, Hernia, Inguinal, Other (See Below) Male Surgical History: Reports: Circumcision, Vasectomy, Other (See Below) Musculoskeletal Surgical History: Reports: Arthroscopic Knee, Arthroscopic Procedure, Shoulder Surgery, Other (See Below) Oncologic Surgical History: Reports: None - Past Imaging History Past Imaging History: Reports: Angiography, CAT Scan, Stress Testing, Upper GI X -Ray/Series, Other (See Below) Social & Family History - Family History Cardiac: Reports: CAD, NM, Stent, Other (See Below) Other Cardiac Family History: History of early heart attacks in family, including brother in his 50s another brother in his 60s with both brothers having PTCA/stents Neurological: Reports: Parkinson's, Other (See Below) Other Neurological Family History: Maternal aunt with Parkinson's disease - Tobacco Use Smoking Status *Q: Never Smoker Second Hand Smoke Exposure: No - Caffeine Use Caffeine Use: Reports: Coffee, Soda Caffeine Use Comment: One cup of coffee per day, 2 sodas per day - Recreational Drug Use Recreational Drug Use: No - Living Situation & Occupation Living situation: Reports: , with Family Occupation: Employed ED ROS GENERAL - Review of Systems Review Of Systems: See Below Constitutional: Reports: No Symptoms HEENT: Reports: No Symptoms Respiratory: Reports: No Symptoms Cardiovascular: Reports: No Symptoms Endocrine: Reports: No Symptoms GI/Abdominal: Reports: No Symptoms : Reports: No Symptoms Musculoskeletal: Reports: No Symptoms Skin: Reports: No Symptoms Neurological: Reports: No Symptoms Psychiatric: Reports: No Symptoms Hematologic/Lymphatic: Reports: No Symptoms Immunologic: Reports: No Symptoms ED EXAM, GI/ABD - Physical Exam Exam: See Below Exam Limited By: No Limitations General Appearance: Alert, WD/WN, No Apparent Distress Eyes: Bilateral: Normal Appearance, EOMI Ears: Normal External Exam, Normal Canal, Hearing Grossly Normal, Normal TMs Nose: Normal Inspection, Normal Mucosa, No Blood Throat/Mouth: Normal Inspection, Normal Lips, Normal Teeth, Normal Gums, Normal Oropharynx, Normal Voice, No Airway Compromise Head: Atraumatic, Normocephalic Neck: Normal Inspection, Supple, Non-Tender, Full Range of Motion Respiratory/Chest: No Respiratory Distress, Lungs Clear, Normal Breath Sounds, No Accessory Muscle Use, Chest Non-Tender Cardiovascular: Normal Peripheral Pulses, Regular Rate, Rhythm, No Edema, No Gallop, No JVD, No Murmur, No Rub GI/Abdominal Exam: Normal Bowel Sounds, Soft, Non-Tender, No Organomegaly, No Distention, No Abnormal Bruit, No Mass, Pelvis Stable (Male) Exam: No Hernia, Normal Inspection, Normal Prostate, Circumcised Rectal (Males) Exam: Normal Exam, Normal Rectal Tone, Prostate Normal Back Exam: Normal Inspection, Full Range of Motion, NT Extremities: Normal Inspection, Normal Range of Motion, Non-Tender, Normal Capillary Refill, No Pedal Edema Neurological: Alert, Oriented, CN II-XII Intact, Normal Cognition, Normal Gait, Normal Reflexes, No Motor/Sensory Deficits Psychiatric: Normal Affect, Normal Mood Skin Exam: Warm, Dry, Intact, Normal Color, No Rash Lymphatic: No Adenopathy Course - Vital Signs Last Recorded V/S: Last Vital Signs Temp 98.0 F 08/09/19 16:05 Pulse 79 08/09/19 16:04 Resp 12 08/09/19 16:04 BP 166/93 H 08/09/19 16:04 Pulse Ox 94 L 08/09/19 16:04 - Orders/Labs/Meds Orders: Active Orders 24 hr Category Date Time Status Oxygen Therapy [RC] PRN Care 08/09/19 14:58 Inactive VTE/DVT Education [RC] PER UNIT ROUTINE Care 08/09/19 14:58 Inactive Vital Signs [RC] Q15M Care 08/09/19 14:58 Active Abdomen Pelvis w Cont [CT] Stat Exams 08/09/19 14:49 Taken Pantoprazole [ProTONIX IV] Med 08/09/19 14:00 Active 40 mg IVPUSH DAILY Sodium Chloride 0.9% [Normal Saline] 1,000 ml Med 08/09/19 11:15 Active IV ASDIRECTED Sodium Chloride 0.9% [Saline Flush] Med 08/09/19 11:10 Active 10 ml FLUSH ASDIRECTED PRN Sucralfate [Carafate] Med 08/09/19 15:00 Active 1 gm PO Q6H NG [Nasogastric Orogastric Tube Insertion] [OM.PC] Oth 08/09/19 11:18 Ordered Routine Saline Lock Insert [OM.PC] Stat Oth 08/09/19 11:10 Ordered Medication Orders Sodium Chloride (Normal Saline) 1,000 mls @ 250 mls/hr IV ASDIRECTED WILLY Last Admin: 08/09/19 14:12 Dose: 250 mls/hr Pantoprazole Sodium (Protonix Iv) 40 mg IVPUSH DAILY [facility] Last Admin: 08/09/19 14:12 Dose: 40 mg Sodium Chloride (Saline Flush) 10 ml FLUSH ASDIRECTED PRN PRN Reason: Keep Vein Open Sucralfate (Carafate) 1 gm PO Q6H [facility] Labs: Laboratory Tests 08/09/19 08/09/19 08/09/19 Range/Units 11:35 11:35 12:04 WBC 6.4 (4.0-10.2) K/uL RBC 5.74 H (4.33-5.41) M/uL Hgb 16.4 D (13.1-16.8) g/dL Hct 48.0 (39.0-49.0) % MCV 83.6 L D (84.0-98.0) fL MCH 28.6 (28.2-33.3) pg MCHC 34.2 (31.7-36.0) g/dL RDW 14.2 H (11.2-14.1) % Plt Count 207 (150-350) K/uL Neut % (Auto) 61.4 (45.0-80.0) % Lymph % (Auto) 30.3 (10.0-50.0) % [place] % (Auto) 7.1 (2.0-14.0) % Eos % (Auto) 0.9 (0.0-5.0) % Baso % (Auto) 0.3 (0.0-2.0) % Neut # (Auto) 3.91 (1.40-7.00) K/uL Lymph # (Auto) 1.93 (0.50-3.50) K/uL [place] # (Auto) 0.45 (0.00-1.00) K/uL Eos # (Auto) 0.06 (0.00-0.50) K/uL Baso # (Auto) 0.02 (0.00-0.20) K/uL Sodium 139 (136-145) mmol/L Potassium 5.0 D (3.5-5.1) mmol/L Chloride 102 (98-107) mmol/L Carbon Dioxide 27.0 (21.0-32.0) mmol/L BUN 14 (7-18) mg/dL Creatinine 0.93 (0.51-1.17) mg/dL Est Cr Clr Drug Dosing 101.43 mL/min Estimated GFR (MDRD) > 60 mL/min Glucose 222 H (74-106) mg/dL Calcium 10.9 H D (8.5-10.1) mg/dL Total Bilirubin 0.7 (0.2-1.0) mg/dL AST 22 (15-37) U/L ALT 40 (12-78) U/L Alkaline Phosphatase 84 (46-116) IU/L Total Protein 8.0 (6.4-8.2) g/dL Albumin 4.6 (3.4-5.0) g/dL Specimen Type Urinvoid Urine Color Yellow Urine Appearance Clear Urine pH 7.0 (5.0-9.0) Ur Specific [place] 1.010 (1.005-1.030) Urine Protein Negative (NEGATIVE) mg/dL Urine Glucose (UA) 500 H (NEGATIVE) mg/dL Urine Ketones Negative (NEGATIVE) mg/dL Urine Occult Blood Negative (NEGATIVE) Urine Nitrite Negative (NEGATIVE) Urine Bilirubin Negative (NEGATIVE) Urine Urobilinogen 0.2 (0.2-1.0) E.U./dL Ur Leukocyte Esterase Negative (NEGATIVE) Urine RBC 0-5 /HPF Urine WBC 0-5 /HPF Ur Epithelial Cells Few /LPF Urine Bacteria Rare (NONE TO FEW) /HPF Meds: Medications Generic Name Dose Route Start Last Admin Trade Name Freq PRN Reason Stop Dose Admin Sodium Chloride 1,000 mls @ 250 mls/hr 08/09/19 11:15 08/09/19 14:12 Normal Saline IV 250 mls/hr ASDIRECTED WILLY Administration Pantoprazole Sodium 40 mg 08/09/19 14:00 08/09/19 14:12 Protonix Iv IVPUSH 40 mg DAILY WILLY Administration Sodium Chloride 10 ml 08/09/19 11:10 Saline Flush FLUSH ASDIRECTED PRN Keep Vein Open Sucralfate 1 gm 08/09/19 15:00 Carafate PO Q6H WILLY Discontinued Medications Generic Name Dose Route Start Last Admin Trade Name Freq PRN Reason Stop Dose Admin Diatrizoate Meglum/Diatrizoate Sod 30 ml 08/09/19 14:53 08/09/19 16:31 Gastrografin 37% PO 08/09/19 14:54 30 ml ONETIME ONE Administration Hydromorphone HCl 2 mg 08/09/19 11:43 08/09/19 11:50 Dilaudid IM 08/09/19 11:44 2 mg ONETIME ONE Administration Hydromorphone HCl 1 mg 08/09/19 13:57 08/09/19 14:15 Dilaudid IVPUSH 08/09/19 13:58 1 mg ONETIME ONE Administration Promethazine HCl 12.5 mg/ 100.5 mls @ 400 mls/hr 08/09/19 11:14 08/09/19 15: 00 Sodium Chloride IV 08/09/19 11:29 400 mls/hr ONETIME ONE Administration Iopamidol 100 ml 08/09/19 15:00 08/09/19 16:31 Isovue-300 (61%) IVPUSH 08/09/19 15:01 100 ml ONETIME ONE Administration Lidocaine HCl 5 ml 08/09/19 11:46 08/09/19 14:23 Xylocaine-Mpf 1% INJECT 08/09/19 11:47 Not Given ONETIME ONE Lidocaine HCl Confirm 08/09/19 14:38 08/09/19 14:51 Xylocaine 2% Viscous Administered 08/09/19 14:39 15 ml Dose Administration 15 ml .ROUTE .STK-MED ONE Ondansetron HCl 8 mg 08/09/19 11:45 08/09/19 11:50 Zofran Odt PO 08/09/19 11:46 8 mg ONETIME ONE Administration Pantoprazole Sodium 40 mg 08/10/19 08:00 Protonix Iv IVPUSH DAILY WILLY Promethazine HCl Confirm 08/09/19 14:53 08/09/19 14:57 Phenergan Administered 08/09/19 14:54 Not Given Dose 25 mg .ROUTE .STK-MED ONE Sucralfate 1 gm 08/09/19 11:15 08/09/19 11:50 Carafate PO 08/09/19 11:16 1 gm ONETIME ONE Administration Departure - Departure Time of Disposition: 17:23 Disposition: Home, Self-Care 01 Condition: Fair Clinical Impression: Gastritis and duodenitis - Discharge Information *PRESCRIPTION DRUG MONITORING PROGRAM REVIEWED*: No *COPY OF PRESCRIPTION DRUG MONITORING REPORT IN PATIENT RUPERTO: No Prescriptions: Sucralfate [Carafate] 1 gm PO Q6HR 30 Days #120 ml Referrals: Deana Hardy NP [Primary Care Provider] - Care Plan Goals: patient is to follow up with regular provider consider gastroscopy in the near future continue with Carafate one tablet every 6 hours may go home with - My Orders Last 24 Hours: My Active Orders 08/09/19 11:10 Sodium Chloride 0.9% [Saline Flush] 10 ml FLUSH ASDIRECTED PRN Saline Lock Insert [OM.PC] Stat 08/09/19 11:15 Sodium Chloride 0.9% [Normal Saline] 1,000 ml IV ASDIRECTED 08/09/19 11:18 NG [Nasogastric Orogastric Tube Insertion] [OM.PC] Routine 08/09/19 14:00 Pantoprazole [ProTONIX IV] 40 mg IVPUSH DAILY 08/09/19 14:49 Abdomen Pelvis w Cont [CT] Stat 08/09/19 14:58 Oxygen Therapy [RC] PRN VTE/DVT Education [RC] PER UNIT ROUTINE Vital Signs [RC] Q15M 08/09/19 15:00 Sucralfate [Carafate] 1 gm PO Q6H - Assessment/Plan Last 24 Hours: My Active Orders 08/09/19 11:10 Sodium Chloride 0.9% [Saline Flush] 10 ml FLUSH ASDIRECTED PRN Saline Lock Insert [OM.PC] Stat 08/09/19 11:15 Sodium Chloride 0.9% [Normal Saline] 1,000 ml IV ASDIRECTED 08/09/19 11:18 NG [Nasogastric Orogastric Tube Insertion] [OM.PC] Routine 08/09/19 14:00 Pantoprazole [ProTONIX IV] 40 mg IVPUSH DAILY 08/09/19 14:49 Abdomen Pelvis w Cont [CT] Stat 08/09/19 14:58 Oxygen Therapy [RC] PRN VTE/DVT Education [RC] PER UNIT ROUTINE Vital Signs [RC] Q15M 08/09/19 15:00 Sucralfate [Carafate] 1 gm PO Q6H
[2019-08-09 19:08] VITALS: BP 140/80; PULSE 82
[2019-08-10] MEDS ORDERED: Pantoprazole 40 MG Vial IVPUSH SCH (08:00)
== END 2019-08-09 18:00 | disposition home or self-care (01) ==
LOC: LL.ED 10:43
DX: K29.80 Duodenitis without bleeding (principal); K29.70 Gastritis, unspecified, without bleeding; I10 Essential (primary) hypertension; K21.9 Gastro-esophageal reflux disease without esophagitis; F41.9 Anxiety disorder, unspecified; F32.9 Major depressive disorder, single episode, unspecified; E11.9 Type 2 diabetes mellitus without complications; Z79.899 Other long term (current) drug therapy; Z79.84 Long term (current) use of oral hypoglycemic drugs; Z88.8 Allergy status to other drugs, medicaments and biological substances; Z90.49 Acquired absence of other specified parts of digestive tract
CPT/HCPCS: 36415; 43752; 74177; 80053; 81001; 85025; 96361; 96372; 96374; 96375; 99284-25; A9270-GY; C1751; C9113; J1170; J2550; J7030; J7050; Q9963; Q9967

== ENCOUNTER 2020-01-30 17:46 | Emergency (ER) | payer BC ==
--- NOTE | 2020-01-30 17:52 | EDM.PDOC ---
ED HPI GENERAL MEDICAL PROBLEM - General Chief Complaint: Headache Stated Complaint: headache Time Seen by Provider: 01/30/20 17:52 Source of Information: Reports: Patient, Family (), Old Records ([facility] EMR. No paper hospital chart available.), Other ([facility]) History Limitations: Reports: No Limitations - History of Present Illness INITIAL COMMENTS - FREE TEXT/NARRATIVE: Patient was brought to the emergency room via private automobile by his for evaluation of 9/10 bilateral frontal migraine headache and nausea similar to his multiple previous episodes. He did take 1,875 grams of Tylenol at about 14:30 hours with no significant improvement in symptoms. Symptoms have been present for about 2 days. No history of recent visual changes, diplopia, change in mental status, or other change in neurological status.The patient also denies any recent fever, cough, wheezing, dyspnea, etc.. No recent history of abdominal pain, heartburn, emesis, diarrhea, melena, gross hematochezia, or any food intolerance, including fatty foods, etc.. Onset: Gradual Onset Date: 01/28/20 Duration: Constant, Getting Worse Location: Reports: Head. Denies: Face, Neck, Chest, Abdomen, Back, Upper Extremity, Left, Upper Extremity, Right, Radiates to Quality: Reports: Same as Previous Episode, Throbbing Severity: Severe Improves with: Reports: None Worsens with: Reports: None Context: Reports: Other (As above). Denies: Sick Contact, Trauma Associated Symptoms: Reports: Headaches, Nausea/Vomiting (No emesis). 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 Headache Pain Score (Numeric/FACES): 9 - Related Data Allergies Allergy/AdvReac Type Severity Reaction Status Date / Time gluten Allergy Rash Verified 01/30/20 19:50 sumatriptan [From Imitrex] Allergy Hypertensio Verified 01/30/20 17:47 n sumatriptan succinate Allergy Hypertensio Verified 01/30/20 17:47 [From Imitrex] n Home Meds: Home Meds lisinopriL [Prinivil] 20 mg PO DAILY 05/10/14 [History] Metoprolol Tartrate 25 mg PO BID 01/22/19 [History] PARoxetine HCl [Paxil] 20 mg PO DAILY 01/22/19 [History] Pramipexole Di-HCl [Pramipexole Dihydrochloride] 0.125 mg PO BEDTIME 01/22/19 [ History] clonazePAM [Clonazepam] 0.5 mg PO BEDTIME 01/22/19 [History] metFORMIN HCl [Glucophage] 1,000 mg PO BID 01/22/19 [History] Omeprazole Magnesium [Prilosec Otc] 20 mg PO TID 08/09/19 [History] Cholecalciferol (Vitamin D3) [Vitamin D] 5,000 unit PO DAILY 01/30/20 [History] SitaGLIPtin [Januvia] 100 mg PO DAILY 01/30/20 [History] Past Medical History HEENT History: Reports: Allergic Rhinitis, Impaired Vision, Other (See Below). Denies: Cataract, Glaucoma, Hard of Hearing, Macular Degeneration, Otitis Media , Retinal Detachment Other HEENT History: Diabetic retinopathy, reading glasses Cardiovascular History: Reports: High Cholesterol, Hypertension, Other (See Below). Denies: Afib, Aneurysm, Arrhythmia, Blood Clots/VTE/DVT, CAD, Cardiomyopathy, Heart Murmur, NH, PTCA, PVD, Syncope Other Cardiovascular History: History of hyperlipidemia with fatty liver by CT scan Respiratory History: Reports: Intubation, Previous, Sleep Apnea, Other (See Below). Denies: Asthma, Bronchitis, Recurrent, COPD, Intubation, Difficult, PE , Pneumothorax, TB Other Respiratory History: Noncompliant with CPAP Gastrointestinal History: Reports: Cholelithiasis, Fatty Liver, GERD, Hiatal Hernia. Denies: Celiac Disease, Chronic Constipation, Chronic Diarrhea, Colon Polyp, Gastritis, GI Bleed, Hepatitis, Helicobacter Pylori, Irritable Bowel Syndrome, Jaundice, Pancreatitis, PUD Other Gastrointestinal History: Note history of Monica fundoplication and cholecystectomy as below Genitourinary History: Reports: BPH, Renal Calculus, Other (See Below). Denies : Acute Renal Failure, Chronic Renal Insuffiency, STD, UTI, Recurrent Other Genitourinary History: Bilateral nephrolithiasis by CT scan with no previous symptoms Musculoskeletal History: Reports: Back Pain, Chronic, Neck Pain, Chronic, Osteoarthritis, Other (See Below). Denies: Arthritis, Fracture, Gout, RA, SLE Other Musculoskeletal History: Positive BETHANIE in July 2016 Neurological History: Reports: Headaches, Chronic, Head Trauma, Migraines, Other (See Below). Denies: Cerebral Aneurysms, MS, Neuropathy, Peripheral, Parkinson's, Seizure, TIA, Vertigo Other Neuro History: Refractory recurrent migraine/tension headaches, head contusion without concussion on 04/25/16 Psychiatric History: Reports: Addiction, Anxiety, Depression, Other (See Below) . Denies: Abuse, Victim of, ADD, ADHD, Psych Hospitalization(s), PTSD, Suicide Attempt, Suicidal Ideation Other Psychiatric History: history of previous chronic narcotic use Endocrine/Metabolic History: Reports: Diabetes, Type II. Denies: Diabetes, Type I, Diabetes Mellitus, Type 3c, Hypothyroidism, IDDM Hematologic History: Reports: Blood Transfusion(s), Other (See Below). Denies: Anemia, Iron Deficiency Other Hematologic History: Blood transfusions at time of Monica fundoplication Immunologic History: Reports: None, Other (See Below). Denies: AIDS, HIV, SLE Other Immunologic History: Note previous negative workup for positive BETHANIE Oncologic (Cancer) History: Reports: None. Denies: Basal Cell Carcinoma, Colon , Hodgkin's Lymphoma, Leukemia, Lymphoma, Malignant Melanoma, Non-Hodgkin's Lymphoma, Prostate, Squamous Cell Carcinoma Dermatologic History: Reports: Eczema, Venous Stasis Dermatitis. Denies: Psoriasis - Infectious Disease History Infectious Disease History: Reports: Chicken Pox. Denies: C-Difficile, Measles , Meningitis, Mononucleosis, MRSA, Mumps, Pertussis (Whooping Cough), Rheumatic Fever, Rubella, Scarlet Fever, Shingles, TB - Past Surgical History Head Surgeries/Procedures: Reports: None HEENT Surgical History: Reports: None, Oral Surgery, Other (See Below). Denies : Adenoidectomy, Cataract Surgery, Eye Surgery, Laser Surgery, Myringotomy w Tube(s), Naso-Sinus Surgery, Tonsillectomy Other HEENT Surgeries/Procedures: Previous tooth extractions. Cardiovascular Surgical History: Reports: None. Denies: Varicose Respiratory Surgical History: Reports: None. Denies: Thoracentesis GI Surgical History: Reports: Appendectomy, Cholecystectomy, Colonoscopy, EGD, Hernia, Inguinal, Other (See Below). Denies: Hernia, Abdominal, Hernia Repair/ Other, Polypectomy Other GI Surgeries/Procedures: Monica fundoplication in September 2009. Appendectomy in 1990. Laparoscopic cholecystectomy with concomitant liver biopsy on 08/08/19. Last EGD and colonoscopy on 08/18/19 with previous EGD on , in 2009 and in 2007. Previous colonoscopy in about 2012. Right inguinal hernia repair in 1988. Male Surgical History: Reports: Circumcision, Vasectomy, Other (See Below) Other Male Surgeries/Procedures: Circumcision as an infant. Vasectomy in about 1995. Endocrine Surgical History: Reports: None. Denies: Thyroid Biopsy Neurological Surgical History: Reports: None. Denies: C-Spine, Discectomy, Laminectomy, Lumbar Spine, Sacral Spine, Spinal Fusion, Thoracic Spine, Vertebroplasty Musculoskeletal Surgical History: Reports: Arthroscopic Knee, Arthroscopic Procedure, Shoulder Surgery, Other (See Below). Denies: Carpal Tunnel, Ganglion Cyst, Joint Replacement, ORIF Other Musculoskeletal Surgeries/Procedures:: Right-sided arthroscopic meniscal repair in 1986. Right laparoscopic shoulder surgery in October 2016. Oncologic Surgical History: Reports: None Dermatological Surgical History: Reports: None - Past Imaging History Past Imaging History: Reports: Angiography ([facility] in February 2015.), CAT Scan (CTA of the chest on 03/21/17. Last CT of the brain on 04/25/16 with multiple previous evaluations by history. CT of the abdomen and pelvis on and 07/30/07.), HIDA Scan (07/29/07), Stress Testing (Cardiac stress test of unknown type at [facility] in February 2015.), Ultrasound ( Gallbladder ultrasound on 07/26/17.), Upper GI X-Ray/Series (Upper GI with swallowing study on 02/25/12.), Venous Doppler (Left leg on 04/05/06.), Other (See Below) (EMG and nerve conduction studies in July 2016. Esophageal motility evaluation on 05/19/12.) Social & Family History - Family History Cardiac: Reports: CAD, NH, Stent, Other (See Below) Other Cardiac Family History: History of early heart attacks in family, including brother in his 50s another brother in his 60s with both brothers having PTCA/stents Neurological: Reports: Parkinson's, Other (See Below) Other Neurological Family History: Maternal aunt with Parkinson's disease - Tobacco Use Smoking Status *Q: Never Smoker Tobacco Use Within Last Twelve Months: No Used Tobacco, but Quit: No Smoking Cessation Information Provided To Patient: No Second Hand Smoke Exposure: No Second Hand Smoke Education Provided: No - Caffeine Use Caffeine Use: Reports: Coffee, Soda. Denies: Energy Drinks, Tea Caffeine Use Comment: One cup of coffee per day, 2 sodas per day - Alcohol Use Alcohol Use History: No Days Per Week of Alcohol Use: 0 Number of Drinks Per Day: 0 Number of Drinks Per Day Comment: No previous DWIs, problems with alcohol abuse , etc. 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 - Physical Exam Exam: See Below Exam Limited By: No Limitations General Appearance: Alert, WD/WN, No Apparent Distress, Anxious (Mild) Eye Exam: Bilateral Eye: EOMI, Normal Fundi, Normal Inspection (No Nystagmus. Borderline photophobia), PERRL Ears: Normal External Exam, Normal Canal, Hearing Grossly Normal, Normal TMs Nose: Normal Inspection, Normal Mucosa, No Blood Throat/Mouth: Normal Inspection, Normal Lips, Normal Teeth, Normal Gums, Normal Oropharynx, Normal Voice, No Airway Compromise. No: Dysphagia, Perioral Cyanosis Head Exam: Atraumatic, Normocephalic. No: Facial Tenderness, Sinus Tenderness Neck: Normal Inspection, Supple, Non-Tender, Full Range of Motion. No: Lymphadenopathy (L), Lymphadenopathy (R), Thyromegaly Respiratory/Chest: No Respiratory Distress, Lungs Clear, Normal Breath Sounds, No Accessory Muscle Use, Chest Non-Tender. No: Pleural Rub, Retractions Cardiovascular: Normal Peripheral Pulses, Regular Rate, Rhythm, No Edema, No Gallop, No JVD, No Murmur, No Rub. No: Gallop/S3, Gallop/S4, Friction Rub GI/Abdominal: Normal Bowel Sounds, Soft, Non-Tender, No Organomegaly, No Distention, No Abnormal Bruit, No Mass. No: Guarding (Male) Exam: Deferred Rectal (Males) Exam: Deferred Neuro Exam (Abbreviated): Alert, Oriented, CN II-XII Intact, Normal Cognition, Normal Gait, No Motor/Sensory Deficits Back Exam: Normal Inspection, Full Range of Motion. No: CVA Tenderness (L), CVA Tenderness (R), Muscle Spasm Extremities: Normal Inspection, Normal Range of Motion, Non-Tender, No Pedal Edema, Normal Capillary Refill. No: Ashlyn's Sign Psychiatric: Anxious (Mild), Depressed Mood (Mild) Skin Exam: Warm, Dry, Intact, Normal Color, No Rash. No: Diaphoretic, Wound/ Incision Course - Vital Signs Last Recorded V/S: Last Vital Signs Temp 36.6 C 01/30/20 17:48 Pulse 73 01/30/20 17:48 Resp 18 01/30/20 17:48 BP 159/88 H 01/30/20 17:48 Pulse Ox 98 01/30/20 17:48 Vital Signs - 24 hr 01/30/20 17:48 Temperature [ 36.6 C Oral] Pulse, 73 Peripheral [ Left Pulse Oximetry] Respiratory 18 Rate Blood Pressure 159/88 H [Left Upper Arm ] O2 Sat by Pulse 98 Oximetry - Orders/Labs/Meds Orders: Active Orders 24 hr Category Date Time Status Peripheral IV Care [RC] . DIRECTED Care 01/30/20 18:07 Active Sodium Chloride 0.9% [Saline Flush] Med 01/30/20 18:07 Active 10 ml FLUSH ASDIRECTED PRN Obtain Past Medical Record [OM.PC] Routine Oth 01/30/20 18:06 Active Peripheral IV Insertion Adult [OM.PC] Routine Oth 01/30/20 18:06 Ordered Medication Orders Sodium Chloride (Saline Flush) 10 ml FLUSH ASDIRECTED PRN PRN Reason: Keep Vein Open Last Admin: 01/30/20 18:26 Dose: 10 ml Labs: None Meds: Medications Generic Name Dose Route Start Last Admin Trade Name Freq PRN Reason Stop Dose Admin Sodium Chloride 10 ml 01/30/20 18:07 01/30/20 18:26 Saline Flush FLUSH 10 ml ASDIRECTED PRN Administration Keep Vein Open Discontinued Medications Generic Name Dose Route Start Last Admin Trade Name Ama PRN Reason Stop Dose Admin Diazepam 2.5 mg 01/30/20 18:08 01/30/20 18:26 Valium IVPUSH 01/30/20 18:09 2.5 mg ONETIME ONE Administration Diphenhydramine HCl 50 mg 01/30/20 18:08 01/30/20 18:26 Benadryl IVPUSH 01/30/20 18:09 50 mg ONETIME ONE Administration Ketorolac Tromethamine 30 mg 01/30/20 18:07 01/30/20 18:25 Toradol IVPUSH 01/30/20 18:08 30 mg ONETIME ONE Administration Metoclopramide HCl 10 mg 01/30/20 18:07 01/30/20 18:26 Reglan IVPUSH 01/30/20 18:08 10 mg ONETIME ONE Administration - Radiology Interpretation Free Text/Narrative:: None Departure - Departure Time of Disposition: 19:40 Disposition: Home, Self-Care 01 Condition: Good Clinical Impression: Mixed anxiety and depressive disorder, Peptic reflux disease Hypertension Qualifiers: Hypertension type: essential hypertension Qualified Code(s): I10 - Essential ( primary) hypertension Diabetes mellitus Qualifiers: Diabetes mellitus type: type 2 Diabetes mellitus complication status: with ophthalmic complications Diabetes mellitus complication detail: with diabetic retinopathy Diabetic retinopathy severity: with mild nonproliferative retinopathy Diabetes mellitus macular edema: macular edema presence unspecified Qualified Code(s): E11.329 - 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 edema Migraine Qualifiers: Migraine type: with aura Status migrainosus presence: without status migrainosus Intractability: not intractable Qualified Code(s): G43.109 - Migraine with aura, not intractable, without status migrainosus Osteoarthritis Qualifiers: Osteoarthritis location: multiple joints Osteoarthritis type: primary Qualified Code(s): M15.0 - Primary generalized (osteo)arthritis - Discharge Information *PRESCRIPTION DRUG MONITORING PROGRAM REVIEWED*: Not Applicable *COPY OF PRESCRIPTION DRUG MONITORING REPORT IN PATIENT RUPERTO: Not Applicable Referrals: Deana Hardy NP [Primary Care Provider] - Forms: ED Department Discharge, ED Return to Work/School Form Additional Instructions: 1. Follow up with your regular provider in 10-14 days as needed, if symptoms persist. Bring these discharge instructions with you to that visit.. 2. Tylenol 650 mg by mouth every 4 hours and/or OTC ibuprofen 2-3 tabs by mouth every 6 hours with food as directed./needed. You may stagger these medications for 48-72 hours only, which essentially means that you are receiving a pain medication about every 2 hours. Next dose of ibuprofen in 6 hours as needed secondary to medications given in the emergency room. 3. Ice packs to head and neck, dark and quiet room, etc. as directed until headache resolves. 4. Sedation precautions with no driving, etc. for 18 hours because of emergency room medications. 5. Work excuse- See Form 6. Immediately after this visit verify that your cellular telephone's voicemail has been activated and is empty. Also verify that your home telephone 's answering machine is operating properly and has space to receive messages. Note that it is sometimes necessary for us to be able to contact you at a later date to discuss your medical care. 7. Please remember that we are ALWAYS here for you and want to answer any questions you may have. Feel free to call the hospital any time and we call you back [id number]. Sepsis Event Note - Focused Exam Vital Signs: Vital Signs Temp Pulse Resp BP Pulse Ox 01/30/20 17:48 36.6 C 73 18 159/88 H 98 Date Exam was Performed: 01/30/20 Time Exam was Performed: 21:06 - Problem List & Annotations (1) Migraine headache SNOMED Code(s): 52252394 Code(s): G43.909 - MIGRAINE, UNSP, NOT INTRACTABLE, WITHOUT STATUS MIGRAINOSUS Status: Acute Priority: High Onset Date: ~01/28/20 Annotation/Comment:: Overall good results with aggressive treatment as above. Work excuse provided. Sedation precautions given. Continue close follow-up by his regular providers with previous multiple neurological consultations, etc.. Note previous history of narcotic abuse. Qualifiers: Migraine type: without aura Status migrainosus presence: without status migrainosus Intractability: not intractable Qualified Code(s): G43.009 - Migraine without aura, not intractable, without status migrainosus (2) Mixed anxiety and depressive disorder SNOMED Code(s): 369215512 Code(s): F41.8 - OTHER SPECIFIED ANXIETY DISORDERS Status: Chronic Priority: Medium Annotation/Comment:: Stable by patient history. Continue to observe closely through his regular provider. (3) Diabetes mellitus SNOMED Code(s): 72358106 Code(s): E11.9 - TYPE 2 DIABETES MELLITUS WITHOUT COMPLICATIONS Status: Acute Priority: Medium Annotation/Comment:: Stable by history. Note history of diabetic retinopathy. Qualifiers: Diabetes mellitus type: type 2 Diabetes mellitus complication status: with ophthalmic complications Diabetes mellitus complication detail: with diabetic retinopathy Diabetic retinopathy severity: with mild nonproliferative retinopathy Diabetes mellitus macular edema: macular edema presence unspecified (4) Osteoarthritis SNOMED Code(s): 286696308 Code(s): M19.90 - UNSPECIFIED OSTEOARTHRITIS, UNSPECIFIED SITE Status: Chronic Priority: Medium Annotation/Comment:: Stable by patient history Qualifiers: Osteoarthritis location: multiple joints Osteoarthritis type: primary Qualified Code(s): M15.0 - Primary generalized (osteo)arthritis (5) Hypertension SNOMED Code(s): 67231194 Code(s): I10 - ESSENTIAL (PRIMARY) HYPERTENSION Status: Acute Priority: Medium Annotation/Comment:: Blood pressure somewhat elevated in the emergency room today likely secondary to his headache. Continue to watch this closely by his regular providers with no change in current medical therapy. Qualifiers: Hypertension type: essential hypertension Qualified Code(s): I10 - Essential (primary) hypertension (6) Peptic reflux disease SNOMED Code(s): 412710893 Code(s): K21.9 - GASTRO-ESOPHAGEAL REFLUX DISEASE WITHOUT ESOPHAGITIS Status: Chronic Priority: Medium Annotation/Comment:: Stable by history with current medical therapy. - Problem List Review Problem List Initiated/Reviewed/Updated: Yes - My Orders Last 24 Hours: My Active Orders 01/30/20 18:06 Obtain Past Medical Record [OM.PC] Routine Peripheral IV Insertion Adult [OM.PC] Routine 01/30/20 18:07 Peripheral IV Care [RC] . DIRECTED Sodium Chloride 0.9% [Saline Flush] 10 ml FLUSH ASDIRECTED PRN - Assessment/Plan Last 24 Hours: My Active Orders 01/30/20 18:06 Obtain Past Medical Record [OM.PC] Routine Peripheral IV Insertion Adult [OM.PC] Routine 01/30/20 18:07 Peripheral IV Care [RC] . DIRECTED Sodium Chloride 0.9% [Saline Flush] 10 ml FLUSH ASDIRECTED PRN Assessment:: As above Plan: As above. Extensive precautions were given to the patient and his , who are in agreement with the treatment plan. See Patient Instructions for further treatment and plan.
[2020-01-30 17:54] VITALS: BP 159/88; PULSE 73
[2020-01-30] MEDS ORDERED: Sodium Chloride 0.9% 10 ML Syringe FLUSH PRN (18:07)
[2020-01-30] MEDS ORDERED: Metoclopramide 10 MG/2 ML SDV IVPUSH ONE (18:07)
[2020-01-30] MEDS ORDERED: Ketorolac 30 MG/ML SDV IVPUSH ONE (18:07)
[2020-01-30] MEDS ORDERED: diphenhydrAMINE 50 MG/ML SDV IVPUSH ONE (18:08)
== END 2020-01-30 19:40 | disposition home or self-care (01) ==
LOC: LL.ED 17:46
DX: G43.109 Migraine with aura, not intractable, without status migrainosus (principal); F41.8 Other specified anxiety disorders; K21.9 Gastro-esophageal reflux disease without esophagitis; M15.0 Primary generalized (osteo)arthritis; E11.3219 Type 2 diabetes mellitus with mild nonproliferative diabetic retinopathy with macular edema, unspecified eye; I10 Essential (primary) hypertension; F41.9 Anxiety disorder, unspecified; Z88.8 Allergy status to other drugs, medicaments and biological substances; Z79.899 Other long term (current) drug therapy; Z79.84 Long term (current) use of oral hypoglycemic drugs
CPT/HCPCS: 96374; 96375; 99283-25; J1200; J1885; J2765; J3360

== ENCOUNTER 2020-08-15 11:20 | Observation (INO) | payer OTHER ==
[2020-08-15] MEDS ORDERED: Famotidine 20 MG/2 ML SDV IVPUSH ONE (11:31)
--- NOTE | 2020-08-15 11:31 | EDM.PDOC ---
ED HPI GENERAL MEDICAL PROBLEM - General Chief Complaint: General Stated Complaint: "swallowed a toothpick" Time Seen by Provider: 08/15/20 11:20 Source of Information: Reports: Old Records ([facility] EMR. No paper hospital chart available.), Other ([facility] EMR reviewed on 01/30/2020.) History Limitations: Reports: No Limitations - History of Present Illness INITIAL COMMENTS - FREE TEXT/NARRATIVE: The patient was brought to the emergency room via private automobile by his for evaluation of sharp 10 retrosternal/esophageal pain, which occurred shortl y after he swallowed a toothpick accidentally at about 11 AM this morning. He denies any oral injury/discomfort with no previous problems with dysphagia. The patient denies any chest pressure, heart flutter, dizziness, orthostasis, orthopnea, diaphoresis, paresthesias, recent decreased exercise tolerance, or any other anginal-type symptoms. No recent history of abdominal pain, heartburn, nausea, diarrhea, melena, gross hematochezia, or any food intolerance, including fatty foods, etc. with normal bowel movement earlier today. He denies any gross hematuria, colic, or other UTI symptoms. The patient also denies any recent fever, wheezing, dyspnea, etc.. Upon further questioning, however, the patient may have actually aspirated rather than swallowed a toothpick with patient choking and coughing severely shortly after the above episode as above. No history of recent headaches, visual changes, diplopia, change in mental status, or other change in neurological status. Onset: Today, Sudden Onset Date: 08/15/20 Onset Time: 11:00 Duration: Constant Location: Reports: Chest (As above). Denies: Head, Face, Neck, Abdomen, Back, Upper Extremity, Left, Upper Extremity, Right, Radiates to Quality: Reports: Sharp Severity: Moderate Improves with: Reports: None Worsens with: Reports: None Context: Reports: Other (As above). Denies: Sick Contact, Trauma Associated Symptoms: Reports: Chest Pain, Cough. Denies: Confusion, cough w sputum, Diaphoresis, Fever/Chills, Headaches, Loss of Appetite, Malaise, Nausea/Vomiting, Rash, Shortness of Breath, Syncope, Weakness Treatments APPEALS REVIEWER VETERAN: Reports: Other (see below) (None) Middle Chest Pain Score (Numeric/FACES): 7 - Related Data Allergies Allergy/AdvReac Type Severity Reaction Status Date / Time gluten Allergy Rash Verified 08/15/20 11:26 sumatriptan [From Imitrex] Allergy Hypertensio Verified 08/15/20 11:26 n sumatriptan succinate Allergy Hypertensio Verified 08/15/20 11:26 [From Imitrex] n Home Meds: Home Meds lisinopriL [Prinivil] 20 mg PO DAILY 05/10/14 [History] Metoprolol Tartrate 25 mg PO BID 01/22/19 [History] PARoxetine HCl [Paxil] 20 mg PO DAILY 01/22/19 [History] Pramipexole Di-HCl [Pramipexole Dihydrochloride] 0.125 mg PO BEDTIME 01/22/19 [History] clonazePAM [Clonazepam] 0.5 mg PO BEDTIME 01/22/19 [History] metFORMIN HCl [Glucophage] 1,000 mg PO BID 01/22/19 [History] Omeprazole Magnesium [Prilosec Otc] 20 mg PO TID 08/09/19 [History] Cholecalciferol (Vitamin D3) [Vitamin D] 5,000 unit PO DAILY 01/30/20 [History] SitaGLIPtin [Januvia] 100 mg PO DAILY 01/30/20 [History] Cyanocobalamin (Vitamin B12) [Vitamin B12] 1 tab PO DAILY 08/15/20 [History] Past Medical History HEENT History: Reports: Allergic Rhinitis, Impaired Vision, Other (See Below). Denies: Cataract, Glaucoma, Hard of Hearing, Macular Degeneration, Otitis Media, Retinal Detachment Other HEENT History: Diabetic retinopathy, OTC reading glasses. Cardiovascular History: Reports: High Cholesterol, Hypertension, Other (See Below). Denies: Afib, Aneurysm, Arrhythmia, Blood Clots/VTE/DVT, CAD, Cardiomyopathy, Heart Failure, Heart Murmur, GA, PTCA, PVD, Syncope Other Cardiovascular History: History of hyperlipidemia with fatty liver by CT scan Respiratory History: Reports: Intubation, Previous, Sleep Apnea, Other (See Below). Denies: Asthma, Bronchitis, Recurrent, COPD, Intubation, Difficult, PE, Pneumothorax, TB Other Respiratory History: Patient is currently compliant with CPAP with previous history of noncompliance. Gastrointestinal History: Reports: Cholelithiasis, Fatty Liver, GERD, Hiatal Hernia. Denies: Celiac Disease, Chronic Constipation, Chronic Diarrhea, Colon Polyp, Gastritis, GI Bleed, Hepatitis, Helicobacter Pylori, Irritable Bowel Syndrome, Jaundice, Pancreatitis, PUD Other Gastrointestinal History: Note history of Monica fundoplication and cholecystectomy as below Genitourinary History: Reports: BPH, Renal Calculus, Other (See Below). Denies: Acute Renal Failure, Chronic Renal Insuffiency, Diabetic Nephropathy, STD, UTI, Recurrent Other Genitourinary History: Bilateral nephrolithiasis by CT scan with no previous symptoms Musculoskeletal History: Reports: Back Pain, Chronic, Neck Pain, Chronic, Osteoarthritis, Other (See Below). Denies: Arthritis, Fracture, Gout, Osteoporosis, RA, SLE Other Musculoskeletal History: Positive BETHANIE in July 2016 Neurological History: Reports: Headaches, Chronic, Head Trauma, Migraines, Other (See Below). Denies: Cerebral Aneurysms, Concussion, CVA, MS, Neuropathy, Peripheral, Parkinson's, Seizure, TIA, Vertigo Other Neuro History: Refractory recurrent migraine/tension headaches, head contusion without concussion on 04/25/16 Psychiatric History: Reports: Addiction, Anxiety, Depression, Other (See Below). Denies: Abuse, Victim of, ADD, ADHD, Psych Hospitalization(s), PTSD, Suicide Attempt, Suicidal Ideation Other Psychiatric History: History of previous chronic narcotic use. Endocrine/Metabolic History: Reports: Diabetes, Type II, Other (See Below). Denies: Diabetes, Type I, Diabetes Mellitus, Type 3c, Hypothyroidism, IDDM, Obesity/BMI 30+, Osteopenia, Osteoporosis Other Endocrine/Metabolic History: Hypocalcemia. Hematologic History: Reports: Blood Transfusion(s), Other (See Below). Denies: Anemia, Iron Deficiency Other Hematologic History: Blood transfusions at time of Monica fundoplication Immunologic History: Reports: None, Other (See Below). Denies: AIDS, HIV, SLE Other Immunologic History: Note previous negative workup for positive BETHANIE Oncologic (Cancer) History: Reports: None. Denies: Basal Cell Carcinoma, Colon, Hodgkin's Lymphoma, Leukemia, Lymphoma, Malignant Melanoma, Non-Hodgkin's Lymphoma, Prostate, Squamous Cell Carcinoma Dermatologic History: Reports: Eczema, Venous Stasis Dermatitis. Denies: Psoriasis Other Dermatologic History: Venous stasis dermatitis - Infectious Disease History Infectious Disease History: Reports: Chicken Pox. Denies: C-Difficile, Measles, Meningitis, Mononucleosis, MRSA, Mumps, Novel Coronavirus, Pertussis (Whooping Cough), Rheumatic Fever, Rubella, Scarlet Fever, Shingles, TB - Past Surgical History Head Surgeries/Procedures: Reports: None HEENT Surgical History: Reports: None, Oral Surgery, Other (See Below). Denies: Adenoidectomy, Cataract Surgery, Eye Surgery, Laser Surgery, Myringotomy w Tube(s), Naso-Sinus Surgery, Tonsillectomy Other HEENT Surgeries/Procedures: Previous tooth extractions. Cardiovascular Surgical History: Reports: None. Denies: Varicose Respiratory Surgical History: Reports: None. Denies: Thoracentesis GI Surgical History: Reports: Appendectomy, Cholecystectomy, Colonoscopy, EGD, Hernia, Inguinal, Other (See Below). Denies: Hernia, Abdominal, Hernia Repair/Other, Polypectomy Other GI Surgeries/Procedures: Monica fundoplication in September 2009. Appendectomy in 1990. Laparoscopic cholecystectomy with concomitant liver biopsy on 08/08/19. Last EGD and colonoscopy on 08/18/19 with previous EGD on 03/23/17, in 2009 and in 2007. Previous colonoscopy in about 2012. Right inguinal hernia repair in 1988. Male Surgical History: Reports: Circumcision, Vasectomy, Other (See Below). Denies: TURP-Transurethral Resection of Prostate Other Male Surgeries/Procedures: Circumcision as an . Vasectomy in about 1995. Endocrine Surgical History: Reports: None. Denies: Thyroid Biopsy Neurological Surgical History: Reports: None. Denies: C-Spine, Discectomy, Laminectomy, Lumbar Spine, Sacral Spine, Spinal Fusion, Thoracic Spine, Vertebroplasty Musculoskeletal Surgical History: Reports: Arthroscopic Knee, Arthroscopic Procedure, Shoulder Surgery, Other (See Below). Denies: Carpal Tunnel, Ganglion Cyst, Joint Replacement, ORIF Other Musculoskeletal Surgeries/Procedures:: Right-sided arthroscopic meniscal repair in 1986. Right laparoscopic shoulder surgery in October 2016. Oncologic Surgical History: Reports: None Dermatological Surgical History: Reports: None - Past Imaging History Past Imaging History: Reports: Angiography ([facility] in February 2015.), CAT Scan (CTA of the chest on 03/21/17. Last CT of the brain on 04/25/16 with multiple previous evaluations by history. CT of the abdomen and pelvis on 04/21/11 and 07/30/07.), HIDA Scan (07/29/07), MRI (Negative MRI of the brain on 03/25/2020.), Stress Testing (Cardiac stress test of unknown type at [facility] in February 2015.), Ultrasound (Gallbladder ultrasound on 07/26/17.), Upper GI X-Ray/Series (Upper GI with swallowing study on 02/25/12.), Venous Doppler (Left leg on 04/05/06.), Other (See Below) (EMG and nerve conduction studies in July 2016. Esophageal motility evaluation on 05/19/12.) Social & Family History - Family History HEENT: Reports: Impaired Vision, Other (See Below). Denies: Glaucoma, Macular Degeneration, Retinal Detachment Other HEENT Family History: Brother with IDDM and secondary diabetic retinopathy. Cardiac: Reports: CAD, Heart Murmur, GA, Stent, Syncope, Other (See Below). Denies: Afib, Aneurysm, Arrhythmia, Blood Clots/VTE/DVT, Bypass, Heart Failure, High Cholesterol, Hypertension Other Cardiac Family History: History of early heart attacks in family, inclu ding brother in his 50s another brother in his 60s with brother also having a valve disorder with secondary syncopal episodes, which did require valve replacement at age 62. Both brothers did have PTCA/stents. Father with initial GA at age 50 with subsequent multiple MIs with no further procedures done however fatal GA at age 60. Respiratory: Reports: None. Denies: Asthma, COPD, PE, Pneumothorax, Sleep Apnea GI: Reports: None. Denies: Celiac Disease, Cholelithiasis, Colon Polyps, GERD, GI bleed, Inflammatory Bowel Disease, Irritable Bowel Syndrome, PUD : Reports: Dialysis, Renal Disease/Insufficiency. Denies: Renal Calculus Other Family History: Brother with IDDM and secondary diabetic nephropathy and current dialysis. OBGYN: Reports: None. Denies: Endometriosis, Recurrent Spontaneous Musculoskeletal: Reports: None. Denies: Gout, RA, SLE Neurological: Reports: Neuropathy, Diabetic, Neuropathy, Peripheral, Parkinson's, Other (See Below). Denies: Alzheimers Disease, Cerebral Aneurysms, CVA, Dementia, MS, Seizure, TIA Other Neurological Family History: Brother with diabetic neuropathy. Maternal aunt with Parkinson's disease Psychiatric: Reports: None. Denies: Abuse, Victim of, ADD, ADHD, Anxiety, Depression, Psych Hospitalization(s), Psychosis, PTSD, Suicide Attempt Endocrine/Metabolic: Reports: Diabetes, type II, IDDM, Other (See Below). Denies: Diabetes, Type I, Diabetes Mellitus, Type 3c, Hypothyroidism Other Endocrine/Metabolic Family History: Brother with IDDM and secondary complications as above. Hematologic: Reports: None. Denies: Anemia, SLE Immunologic: Reports: None. Denies: AIDS, HIV, SLE Dermatologic: Reports: None. Denies: Eczema, Psoriasis Oncologic: Reports: None. Denies: Colon, Hodgkin's Lymphoma, Leukemia, Lymphoma, Non-Hodgkin's Lymphoma, Prostate, Skin - Tobacco Use Smoking Status *Q: Never Smoker Tobacco Use Within Last Twelve Months: No Used Tobacco, but Quit: No Smoking Cessation Information Provided To Patient: No Second Hand Smoke Exposure: No Second Hand Smoke Education Provided: No - Caffeine Use Caffeine Use: Reports: Coffee, Soda. Denies: Energy Drinks, Tea Caffeine Use Comment: One cup of coffee per day, 2 sodas per day - Alcohol Use Alcohol Use History: No Days Per Week of Alcohol Use: 0 Number of Drinks Per Day: 0 Number of Drinks Per Day Comment: No previous DWIs, problems with alcohol abuse, etc. Total Drinks Per Week: 0 Alcohol Use in Last Twelve Months: No - Recreational Drug Use Recreational Drug Use: No Drug Use in Last 12 Months: No Recreational Drug Type: Denies: Amphetamines (Speed), Cocaine, Heroin, Inhalants (Glues, Solvents, Aerosols), LSD (Acid), Marijuana/Hashish, Methamphetamine, Morphine, Oxycodone - Living Situation & Occupation Living situation: Reports: (1989, 3 children), with Family () Occupation: Employed (Currently works in [employer] at [employer]. 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 ED EXAM, GENERAL - Physical Exam Exam: See Below Exam Limited By: No Limitations General Appearance: Alert, WD/WN, No Apparent Distress Eye Exam: Bilateral Eye: EOMI, Normal Inspection (No nystagmus. Patient is wearing glasses.), PERRL Ears: Normal External Exam, Normal Canal, Hearing Grossly Normal, Normal TMs Nose: Normal Inspection, Normal Mucosa, No Blood Throat/Mouth: Normal Inspection, Normal Lips, Normal Teeth, Normal Gums, Normal Oropharynx, Normal Voice, No Airway Compromise, Other (No evidence of oral injury). No: Dysphagia, Inflammation, Perioral Cyanosis Head: Atraumatic, Normocephalic. No: Facial Swelling, Facial Tenderness, Sinus Tenderness Neck: Normal Inspection, Supple, Non-Tender, Full Range of Motion. No: Carotid Bruit, Lymphadenopathy (L), Lymphadenopathy (R), Thyromegaly Respiratory/Chest: No Respiratory Distress, Lungs Clear, Normal Breath Sounds, No Accessory Muscle Use, Chest Non-Tender. No: Pleural Rub, Retractions Cardiovascular: Normal Peripheral Pulses, Regular Rate, Rhythm, No Edema, No Gallop, No JVD, No Murmur, No Rub. No: Gallop/S3, Gallop/S4, Friction Rub Peripheral Pulses: 2+: Radial (L), Radial (R), Dorsalis Pedis (L), Dorsalis Pedis (R) GI/Abdominal: Normal Bowel Sounds, Soft, Non-Tender, No Organomegaly, No Distention, No Abnormal Bruit, No Mass. No: Guarding (Male) Exam: Deferred Rectal (Males) Exam: Deferred Back Exam: Normal Inspection, Full Range of Motion. No: CVA Tenderness (L), CVA Tenderness (R), Muscle Spasm Extremities: Normal Inspection, Normal Range of Motion, Non-Tender, No Pedal Edema, Normal Capillary Refill. No: Ashlyn's Sign Neurological: Alert, Oriented, CN II-XII Intact, Normal Cognition, Normal Gait, Normal Reflexes (Negative Babinski's), No Motor/Sensory Deficits Psychiatric: Normal Affect, Normal Mood Skin Exam: Warm, Dry, Intact, Normal Color, No Rash, Tattoo(s) (Multiple). No: Diaphoretic, Wound/Incision Lymphatic: No Adenopathy EKG INTERPRETATION EKG Date: 08/15/20 Time: 11:34 Rhythm: NSR Rate (Beats/Min): 73 [place]: Normal (Neutral cardiac axis) P-Wave: Present QRS: Wide (0.10 seconds representing stable repolarization changes with new T wave inversion in lead V1) QT: Normal LA/PQ Interval: 0.18 seconds with stable poor R wave progression in the anterior leads Comparison: Change From Previous EKG (As above since 03/21/2017) EKG Interpretation Comments: 1. No acute ischemic changes 2. Repolarization changes Course - Vital Signs Last Recorded V/S: Last Vital Signs Temp 36.2 C 08/15/20 13:44 Pulse 72 08/15/20 14:18 Resp 14 08/15/20 14:18 BP 106/62 08/15/20 14:18 Pulse Ox 95 08/15/20 14:18 Vital Signs - 24 hr 08/15/20 08/15/20 08/15/20 11:29 12:49 13:04 Temperature [ 36.1 C Temporal] Pulse, 82 78 96 Peripheral [ Pulse Oximetry] Respiratory 14 15 16 Rate Blood Pressure 144/89 H 112/69 109/69 [Left Upper Arm ] O2 Sat by Pulse 97 96 96 Oximetry 08/15/20 08/15/20 08/15/20 13:25 13:34 13:44 Temperature [ 36.2 C Temporal] Pulse, 78 76 80 Peripheral [ Pulse Oximetry] Respiratory 16 16 18 Rate Blood Pressure 138/76 126/75 126/75 [Left Upper Arm ] O2 Sat by Pulse 96 97 95 Oximetry 08/15/20 08/15/20 14:03 14:18 Temperature [ Temporal] Pulse, 74 72 Peripheral [ Pulse Oximetry] Respiratory 14 14 Rate Blood Pressure 103/53 L 106/62 [Left Upper Arm ] O2 Sat by Pulse 95 95 Oximetry - Orders/Labs/Meds Orders: Active Orders 24 hr Category Date Time Status Cardiac Monitoring [RC] . DIRECTED Care 08/15/20 11:32 Active Communication Order [RC] STAT Care 08/15/20 13:14 Active EKG Documentation Completion [RC] ASDIRECTED Care 08/15/20 11:32 Active Oxygen Therapy, ED [RC] PRN Care 08/15/20 11:32 Active Peripheral IV Care [RC] . DIRECTED Care 08/15/20 11:32 Active Pulse Oximetry [RC] CONTINUOUS Care 08/15/20 11:32 Active Up With Assistance [RC] PFP Care 08/15/20 11:32 Active Vital Signs [RC] PFP Care 08/15/20 11:32 Active Nothing per Oral Now Diet [DIET] Diet 08/15/20 Breakfast Active Chest 2V [CR] Stat Exams 08/15/20 11:32 Taken Chest wo Cont [CT] Routine Exams 08/15/20 14:21 Ordered Sodium Chloride 0.9% [Saline Flush] Med 08/15/20 11:31 Active 10 ml FLUSH ASDIRECTED PRN Obtain Past Medical Record [OM.PC] Urgent Oth 08/15/20 11:32 Active Peripheral IV Insertion Adult [OM.PC] Stat Oth 08/15/20 11:32 Ordered Resuscitation Status Stat Resus Stat 08/15/20 11:31 Ordered Medication Orders Sodium Chloride (Saline Flush) 10 ml FLUSH ASDIRECTED PRN PRN Reason: Keep Vein Open Last Admin: 08/15/20 12:37 Dose: 10 ml Documented by: Admin: 08/15/20 11:54 Dose: 10 ml Documented by: OLIVER Labs: Laboratory Tests 08/15/20 08/15/20 08/15/20 Range/Units 11:59 11:59 11:59 WBC 5.5 (4.0-10.2) K/uL RBC 5.14 (4.33-5.41) M/uL Hgb 15.2 (13.1-16.8) g/dL Hct 45.9 (39.0-49.0) % MCV 89.3 D (84.0-98.0) fL MCH 29.6 (28.2-33.3) pg MCHC 33.1 (31.7-36.0) g/dL RDW 13.4 (11.2-14.1) % Plt Count 220 (150-350) K/uL Neut % (Auto) 38.5 L (45.0-80.0) % Lymph % (Auto) 44.0 (10.0-50.0) % [place] % (Auto) 11.6 (2.0-14.0) % Eos % (Auto) 5.2 H (0.0-5.0) % Baso % (Auto) 0.7 (0.0-2.0) % Neut # (Auto) 2.13 (1.40-7.00) K/uL Lymph # (Auto) 2.44 (0.50-3.50) K/uL [place] # (Auto) 0.64 (0.00-1.00) K/uL Eos # (Auto) 0.29 (0.00-0.50) K/uL Baso # (Auto) 0.04 (0.00-0.20) K/uL PT 9.5 (9.5-12.0) SEC INR 0.9 APTT 24.5 (24.5-32.8) SEC Sodium 139 (136-145) mmol/L Potassium 3.8 (3.5-5.1) mmol/L Chloride 105 (98-107) mmol/L Carbon Dioxide 25.2 (21.0-32.0) mmol/L BUN 15 (7-18) mg/dL Creatinine 0.86 (0.51-1.17) mg/dL Est Cr Clr Drug Dosing TNP Estimated GFR (MDRD) > 60 mL/min Glucose 200 H (74-106) mg/dL Lactic Acid (0.4-2.0) mmol/L Uric Acid 5.8 (2.6-7.2) mg/dL Calcium 9.9 (8.5-10.1) mg/dL Magnesium 2.0 (1.8-2.4) mg/dL Total Bilirubin 0.5 (0.2-1.0) mg/dL AST 27 (15-37) U/L ALT 32 (12-78) U/L Alkaline Phosphatase 84 (46-116) IU/L Creatine Kinase 194 (26-308) U/L Creatine Kinase Index 1.2 (0.0-2.5) % CK-MB (CK-2) 2.40 (0.00-3.60) ng/mL Troponin I 0.000 (0.000-0.056) ng/mL NT-Pro-B Natriuret Pep 84 (0-125) pg/mL Total Protein 7.1 (6.4-8.2) g/dL Albumin 4.1 (3.4-5.0) g/dL TSH, Ultra Sensitive 4.154 H (0.358-3.740) mIU/mL SARS-CoV-2 RNA (ANTHONY) (NEGATIVE) 08/15/20 08/15/20 Range/Units 11:59 13:19 WBC (4.0-10.2) K/uL RBC (4.33-5.41) M/uL Hgb (13.1-16.8) g/dL Hct (39.0-49.0) % MCV (84.0-98.0) fL MCH (28.2-33.3) pg MCHC (31.7-36.0) g/dL RDW (11.2-14.1) % Plt Count (150-350) K/uL Neut % (Auto) (45.0-80.0) % Lymph % (Auto) (10.0-50.0) % [place] % (Auto) (2.0-14.0) % Eos % (Auto) (0.0-5.0) % Baso % (Auto) (0.0-2.0) % Neut # (Auto) (1.40-7.00) K/uL Lymph # (Auto) (0.50-3.50) K/uL [place] # (Auto) (0.00-1.00) K/uL Eos # (Auto) (0.00-0.50) K/uL Baso # (Auto) (0.00-0.20) K/uL PT (9.5-12.0) SEC INR APTT (24.5-32.8) SEC Sodium (136-145) mmol/L Potassium (3.5-5.1) mmol/L Chloride (98-107) mmol/L Carbon Dioxide (21.0-32.0) mmol/L BUN (7-18) mg/dL Creatinine (0.51-1.17) mg/dL Est Cr Clr Drug Dosing Estimated GFR (MDRD) mL/min Glucose (74-106) mg/dL Lactic Acid 3.1 H (0.4-2.0) mmol/L Uric Acid (2.6-7.2) mg/dL Calcium (8.5-10.1) mg/dL Magnesium (1.8-2.4) mg/dL Total Bilirubin (0.2-1.0) mg/dL AST (15-37) U/L ALT (12-78) U/L Alkaline Phosphatase (46-116) IU/L Creatine Kinase (26-308) U/L Creatine Kinase Index (0.0-2.5) % CK-MB (CK-2) (0.00-3.60) ng/mL Troponin I (0.000-0.056) ng/mL NT-Pro-B Natriuret Pep (0-125) pg/mL Total Protein (6.4-8.2) g/dL Albumin (3.4-5.0) g/dL TSH, Ultra Sensitive (0.358-3.740) mIU/mL SARS-CoV-2 RNA (ANTHONY) Negative (NEGATIVE) Meds: Medications Generic Name Dose Route Start Last Admin Trade Name Freq PRN Reason Stop Dose Admin Sodium Chloride 10 ml 08/15/20 11:31 08/15/20 12:37 Saline Flush FLUSH 10 ml ASDIRECTED PRN Administration Keep Vein Open Discontinued Medications Generic Name Dose Route Start Last Admin Trade Name Freq PRN Reason Stop Dose Admin Famotidine 40 mg 08/15/20 11:31 08/15/20 11:54 Pepcid IVPUSH 08/15/20 11:32 40 mg ONETIME ONE Administration Ceftriaxone Sodium 1 gm/ 100 mls @ 200 mls/hr 08/15/20 12:40 08/15/20 12:49 Sodium Chloride IV 08/15/20 13:09 200 mls/hr ONETIME ONE Administration Lactated Ringer's 1,000 mls @ 999 mls/hr 08/15/20 12:40 08/15/20 12:54 Ringers, Lactated IV 08/15/20 13:40 999 mls/hr .BOLUS ONE Administration Ondansetron HCl 4 mg 08/15/20 12:28 08/15/20 12:37 Zofran IVPUSH 08/15/20 12:29 4 mg ONETIME ONE Administration - Radiology Interpretation Free Text/Narrative:: quality assurance monitor final shows normal sinus rhythm with heart rate in the 70s with no ectopy or arrhythmia. Chest x-ray, PA and lateral, shows possible mild pulmonary obstructive disease and mild prominence of the proximal aortic arch with no pulmonary infiltrates, pneumothorax, cardiomegaly, CHF, evidence of foreign body, etc. Note multiple left upper quadrant surgical clips likely secondary to previous Monica fu ndoplication. Telephone consultation at 1553 hrs. with the radiology department at [facility] in [place]. Preliminary verbal report of CT scan of the chest without contrast was negative for aspirated foreign body. CT Results Date: 08/15/20 CT Results Time: 15:53 Departure - Departure Time of Disposition: 16:30 Disposition: Refer to Observation Clinical Impression: Hypothyroidism (acquired), Elevated lactic acid level - Discharge Information *PRESCRIPTION DRUG MONITORING PROGRAM REVIEWED*: Not Applicable *COPY OF PRESCRIPTION DRUG MONITORING REPORT IN PATIENT RUPERTO: Not Applicable Sepsis Event Note (ED) - Evaluation Sepsis Screening Result: No Definite Risk - Focused Exam Vital Signs: Vital Signs Temp Pulse Resp BP Pulse Ox 08/15/20 14:18 72 14 106/62 95 08/15/20 14:03 74 14 103/53 L 95 08/15/20 13:44 36.2 C 80 18 126/75 95 08/15/20 13:34 76 16 126/75 97 08/15/20 13:25 78 16 138/76 96 08/15/20 13:04 96 16 109/69 96 08/15/20 12:49 78 15 112/69 96 08/15/20 11:29 36.1 C 82 14 144/89 H 97 - Problem List & Annotations (1) Foreign body SNOMED Code(s): 197328932 Code(s): [id number] - Status: Acute Priority: High Current Visit: Yes Onset Date: 08/15/20 Annotation/Comment:: Patient accidentally swallowed a toothpick earlier this morning as above with no history of dysphagia, etc. initial surgical consultation at 11:30 AM with Raul Sandra MD, general surgeon, who is in the facility today for other procedures. He does agree to perform an EGD in this facility later today. No further treatment recommendations given at that time. Note, however, after further questioning of the patient it does appear may have actually aspirated rather than swallowed the above toothpick with likely requirement for a bronchoscopy. Telephone consultation at 12:40 PM with [facility] with bed not available in their facility at this time other than for CVA or STEMI's. Subsequent telephone consultation at 12:43 PM with [facility] with no beds available in the facility at this time. Various therapeutic options were discussed with the patient. Perform EGD in this facility initially with subsequent reattempt to transfer the patient to [facility] depending on these test results. This emergency room note will serve as preoperative H&P. Note lactic acid elevation with no clinical evidence of sepsis, however 1 dose of IV Rocephin will be given preoperatively with additional initiation of 1 L IV bolus of lactated Ringer's thereafter as per sepsis protocol. Repeat lactic acid level in about 3-4 hours as per this protocol. EGD completed at 1405 hrs. with no acute findings or evidence of foreign body, injury, etc. including into the duodenum as per verbal consultation with Dr. Sandra after this procedure. Subsequent telephone consultation at [address] Jaquez, photographer apprentice at [facility], who is requesting that a CT scan without contrast of the chest be performed initially. Note negative CT scan of the chest results as above. Subsequent telephone consultation at 15:55 hours with the photographer apprentice, who is recommending possible outpatient bronchoscopy depending on his clinical course. Various therapeutic options were discussed with the patient and his during subsequent telephone consultation with both parties requesting placement of the patient in ob servation status for further treatment and evaluation, including his lactic acid elevation as above. [facility] physician assumes care in the a.m. with recommended repeat pulmonology consultation at that time for scheduling of possible bronchoscopy, although the photographer apprentice recommended that this be performed next week on an as-needed basis depending on his clinical course. (2) Elevated lactic acid level SNOMED Code(s): 4109043 Code(s): R79.89 - OTHER SPECIFIED ABNORMAL FINDINGS OF BLOOD CHEMISTRY Status: Acute Priority: High Current Visit: Yes Onset Date: 08/15/20 Annotation/Comment:: As above. Note no leukocytosis, fever, etc. with blood cultures x2 not collected. Continue IV fluids and IV Rocephin therapy with lactic acid level to be repeated shortly after admission. Consider UA with culture and sensitivity depending on his clinical course, however no urinary symptoms at this time. (3) Chest pain SNOMED Code(s): 32817348 Code(s): R07.9 - CHEST PAIN, UNSPECIFIED Status: Acute Priority: High Current Visit: Yes Onset Date: 08/15/20 Annotation/Comment:: Mid retrosternal chest pain versus esophageal pain secondary to accidentally swallowed foreign body as above. No chest pain or anginal complaints with chest pain protocol not initiated in the emergency room. EKG, etc. performed as a cautionary measure and also as a preoperative H&P for planned procedures as abo ve. No evidence of acute GA with negative EKG and cardiac enzymes at this time. Qualifiers: Chest pain type: precordial pain Qualified Code(s): R07.2 - Precordial pain (4) Diabetes mellitus SNOMED Code(s): 76797109 Code(s): E11.9 - TYPE 2 DIABETES MELLITUS WITHOUT COMPLICATIONS Status: Chronic Priority: Medium Current Visit: Yes Annotation/Comment:: Stable by history with Accu-Chek of 106 mg percent this morning. He normally takes his Accu-Cheks on a twice daily basis. Glucose level of 200 this morning as above. Note history of diabetic retinopathy, however no other complications from his diabetes. Qualifiers: Diabetes mellitus type: type 2 Diabetes mellitus complication status: with ophthalmic complications Diabetes mellitus complication detail: with diabetic retinopathy Diabetic retinopathy severity: with mild nonproliferative retin opathy Diabetes mellitus macular edema: macular edema presence unspecified Laterality: unspecified laterality (5) Hypertension SNOMED Code(s): 07318766 Code(s): I10 - ESSENTIAL (PRIMARY) HYPERTENSION Status: Acute Priority: Medium Current Visit: Yes Annotation/Comment:: Blood pressure somewhat elevated in the emergency room today likely secondary to his current discomfort. Continue to watch this closely during this hospitalization by his regular providers with no change in current medical therapy. Qualifiers: Hypertension type: essential hypertension Qualified Code(s): I10 - Essential (primary) hypertension (6) Mixed anxiety and depressive disorder SNOMED Code(s): 664557484 Code(s): F41.8 - OTHER SPECIFIED ANXIETY DISORDERS Status: Chronic Priority: Medium Current Visit: Yes Annotation/Comment:: Stable by patient history. Continue to observe closely through his regular provider. (7) Osteoarthritis SNOMED Code(s): 175009855 Code(s): M19.90 - UNSPECIFIED OSTEOARTHRITIS, UNSPECIFIED SITE Status: Chronic Priority: Medium Current Visit: Yes Annotation/Comment:: Stable by patient history Qualifiers: Osteoarthritis location: multiple joints Osteoarthritis type: primary Qualified Code(s): M89.49 - Other hypertrophic osteoarthropathy, multiple sites (8) Peptic reflux disease SNOMED Code(s): 648098167 Code(s): K21.9 - GASTRO-ESOPHAGEAL REFLUX DISEASE WITHOUT ESOPHAGITIS Status: Chronic Priority: Medium Current Visit: Yes Annotation/Comment:: Stable by history with current medical therapy. High-dose IV Pepcid given as GI prophylaxis. (9) Sleep apnea SNOMED Code(s): 46464954 Code(s): G47.30 - SLEEP APNEA, UNSPECIFIED Status: Acute Priority: Medium Current Visit: Yes Annotation/Comment:: Patient is now compliant with his CPAP with previous problems with noncompliance. Qualifiers: Sleep apnea type: unspecified type Qualified Code(s): G47.30 - Sleep apnea, unspecified (10) Hypothyroidism (acquired) SNOMED Code(s): 464596281 Code(s): E03.9 - HYPOTHYROIDISM, UNSPECIFIED Status: Acute Priority: Medium Current Visit: Yes Onset Date: 08/15/20 Annotation/Comment:: Possible beginning hypothyroidism with mildly elevated TSH. Observe for now with consideration of repeat TSH in about 4 weeks by his regular provider. - Problem List Review Problem List Initiated/Reviewed/Updated: Yes - My Orders Last 24 Hours: My Active Orders 08/15/20 Breakfast Nothing per Oral Now Diet [DIET] 08/15/20 11:31 Sodium Chloride 0.9% [Saline Flush] 10 ml FLUSH ASDIRECTED PRN Resuscitation Status Stat 08/15/20 11:32 Cardiac Monitoring [RC] . DIRECTED EKG Documentation Completion [RC] ASDIRECTED Oxygen Therapy, ED [RC] PRN Peripheral IV Care [RC] . DIRECTED Pulse Oximetry [RC] CONTINUOUS Up With Assistance [RC] PFP Vital Signs [RC] PFP Chest 2V [CR] Stat Obtain Past Medical Record [OM.PC] Urgent Peripheral IV Insertion Adult [OM.PC] Stat 08/15/20 13:14 Communication Order [RC] STAT 08/15/20 14:21 Chest wo Cont [CT] Routine - Assessment/Plan Admission H&P: Please use this note as an admission H&P Last 24 Hours: My Active Orders 08/15/20 Breakfast Nothing per Oral Now Diet [DIET] 08/15/20 11:31 Sodium Chloride 0.9% [Saline Flush] 10 ml FLUSH ASDIRECTED PRN Resuscitation Status Stat 08/15/20 11:32 Cardiac Monitoring [RC] . DIRECTED EKG Documentation Completion [RC] ASDIRECTED Oxygen Therapy, ED [RC] PRN Peripheral IV Care [RC] . DIRECTED Pulse Oximetry [RC] CONTINUOUS Up With Assistance [RC] PFP Vital Signs [RC] PFP Chest 2V [CR] Stat Obtain Past Medical Record [OM.PC] Urgent Peripheral IV Insertion Adult [OM.PC] Stat 08/15/20 13:14 Communication Order [RC] STAT 08/15/20 14:21 Chest wo Cont [CT] Routine Assessment:: As above Plan: As above. Extensive precautions were given to the patient and his , who are in agreement with the treatment plan. Patient was released for EGD procedure earlier later today with this emergency room note serving as his preoperative history and physical. The patient's condition is stable enough for observation status and general supervision.
[2020-08-15] MEDS: Sodium Chloride 0.9% 10 ML Syringe FLUSH PRN ×4 (11:54→23:02)
[2020-08-15 12:22] LABS: PTT,PARTIAL THROMBOPLSTIN TIME 24.5 SEC (24.5-32.8)
[2020-08-15] MEDS ORDERED: Ondansetron 4 MG/2 ML SDV IVPUSH ONE (12:28)
[2020-08-15 12:36] LABS: CHLORIDE,CL 105 mmol/L (98-107); SODIUM,NA 139 mmol/L (136-145)
[2020-08-15] MEDS ORDERED: cefTRIAXone 1 GM in Sodium Chloride 0.9% 100 ML IV ONE (12:40)
[2020-08-15] MEDS ORDERED: Lactated Ringers 1,000 ML IV ONE (12:40)
[2020-08-15] MEDS ORDERED: Lidocaine 2% 100 MG/5 ML Syringe ONE (13:50)
[2020-08-15] MEDS ORDERED: Midazolam 1 MG/ML 2 ML SDV ONE (13:50)
[2020-08-15] MEDS ORDERED: Propofol 200 MG/20 ML SDV ONE (13:50)
--- NOTE | 2020-08-15 14:33 | HP ---
HISTORY OF PRESENT ILLNESS: This 55-year-old male presented to the emergency room in [place] this morning after swallowing a toothpick. Soon after that, he noted a sharp pain in the lower chest area and this pain has persisted. He has not had any dysphagia, nor has he had any shortness of breath or cough. PAST MEDICAL HISTORY: The patient's past medical history is reviewed as documented in his emergency room record. PHYSICAL EXAMINATION: On examination, the patient has no shortness of breath and there is no tenderness on abdominal exam. PLAN: I have advised upper endoscopy to see if the toothpick is lodged in his esophagus and the patient agrees to this. I have discussed the proposed procedure with the patient. He understands risks and agrees to proceed. ELLY Sandra MD /[id number]
[2020-08-15] MEDS ORDERED: Temazepam 15 MG Cap PO PRN (16:41)
[2020-08-15] MEDS ORDERED: Sodium Chloride 0.9% 10 ML Syringe FLUSH PRN (16:41)
[2020-08-15] MEDS ORDERED: Pantoprazole 40 MG Vial IVPUSH SCH (17:00)
--- NOTE | 2020-08-15 17:06 | OR ---
Date of Procedure: 08/15/2020 PREOPERATIVE DIAGNOSIS: Chest pain after swallowing a toothpick. POSTOPERATIVE DIAGNOSIS: Normal upper endoscopy. OPERATION PERFORMED: Esophagogastroduodenoscopy. INDICATIONS FOR SURGERY: This 55-year-old male presented to the emergency room after swallowing a toothpick. He noted that he was having sharp pain in the lower chest, which persisted, and there was concern about the possibility of the toothpick being lodged in the esophagus. FINDINGS: The patient's esophagus appeared normal. There was no visible indication of any injury and no foreign body, specifically no toothpick was seen. The patient's stomach contained a lot of partially digested food, but in the area that was visualized, no injury and no foreign body was seen. The patient's duodenum also appeared normal to the third portion. DESCRIPTION OF PROCEDURE: The patient was taken to the operating room. He was given intravenous sedation, and with him in the left lateral decubitus position and his head was elevated, the Olympus gastroscope was advanced through a mouth guard into the oral cavity. It was then carefully advanced down into the esophagus, and carefully, the esophagus was examined as the scope was advanced. No injury or foreign body was seen, and the scope was advanced into the stomach. Examination is somewhat limited because of the partially digested food present in the gastric cavity, but no injury in the stomach was seen. Retroflexed examination of the fundus also showed no injury and no foreign body. The scope was advanced down into the duodenum, where examination to the third portion was performed and the duodenum also looked normal. The scope was then slowly withdrawn re-examining the structures carefully, and again, no foreign body or injury was noted during the exam. The scope was removed and the patient was taken from the operating room in satisfactory condition. ESTIMATED BLOOD LOSS: Zero. COMPLICATIONS: None. PROGNOSIS: Good. ELLY Sandra MD /[id number]
[2020-08-15] MEDS: metFORMIN 500 MG Tab PO SCH (18:35)
[2020-08-15] MEDS: Metoprolol Tartrate 25 MG Tab PO SCH (18:37)
[2020-08-15] MEDS: Lactated Ringers 1,000 ML IV SCH (18:38)
[2020-08-15] MEDS ORDERED: Pramipexole 0.125 MG Tab PO SCH (20:00)
[2020-08-15] MEDS: Acetaminophen 325 MG Tab PO PRN (20:19)
[2020-08-15] MEDS: Pantoprazole 40 MG Vial IVPUSH SCH (20:21)
[2020-08-15] MEDS: cefTRIAXone 1 GM in Sodium Chloride 0.9% 100 ML IV SCH ×2 (21:05→23:02)
[2020-08-16] MEDS: Acetaminophen 325 MG Tab PO PRN (03:59)
[2020-08-16] MEDS: Lactated Ringers 1,000 ML IV SCH (04:00)
[2020-08-16 07:25] LABS: HEMOGLOBIN A1C 6.3 % (4.3-5.7)
[2020-08-16 07:31] VITALS: BP 124/84; PULSE 62
[2020-08-16] MEDS: Pantoprazole 40 MG Vial IVPUSH SCH (07:34)
[2020-08-16] MEDS: Sodium Chloride 0.9% 10 ML Syringe FLUSH PRN (07:34)
[2020-08-16] MEDS: metFORMIN 500 MG Tab PO SCH (07:34)
[2020-08-16] MEDS: Metoprolol Tartrate 25 MG Tab PO SCH (07:35)
[2020-08-16 07:50] LABS: CHLORIDE,CL 106 mmol/L (98-107); SODIUM,NA 138 mmol/L (136-145)
[2020-08-16] MEDS ORDERED: PARoxetine 20 MG Tab PO SCH (08:00)
[2020-08-16] MEDS ORDERED: Cholecalciferol (Vitamin D3) 5,000 UNIT Tab PO SCH (08:00)
[2020-08-16] MEDS ORDERED: Lisinopril 20 MG Tab PO SCH (08:00)
[2020-08-16] MEDS ORDERED: Cyanocobalamin (Vitamin B12) 1,000 MCG Tab PO SCH (08:00)
--- NOTE | 2020-08-16 09:47 | PCM.DCSUM1 ---
Discharge Summary - Hospital Course Brief History: Pt admitted with chest pain Possible aspiration of wooden toothpick. EGD and CT unremarkable Pt feeling better Diagnosis: Stroke: No - Discharge Data Discharge Date: 08/16/20 Discharge Disposition: Home, Self-Care 01 Condition: Good - Referral to Home Health Primary Care Physician: Soha Jones NP - Discharge Diagnosis/Problem(s) (1) Chest pain SNOMED Code(s): 42675403 ICD Code: R07.9 - CHEST PAIN, UNSPECIFIED Status: Acute Priority: High Current Visit: Yes Onset Date: 08/15/20 Problem Details: Mid retrosternal chest pain versus esophageal pain secondary to accidentally swallowed foreign body as above. No chest pain or anginal complaints with chest pain protocol not initiated in the emergency room. EKG, etc. performed as a cautionary measure and also as a preoperative H&P for planned procedures as above. No evidence of acute DC with negative EKG and cardiac enzymes at this time. Qualifiers: Chest pain type: precordial pain Qualified Code(s): R07.2 - Precordial pain - Patient Instructions Diet: Regular Diet as Tolerated Activity: As Tolerated Driving: May Drive Today Showering/Bathing: May Shower Notify Provider of: Fever, Increased Pain - Discharge Plan *PRESCRIPTION DRUG MONITORING PROGRAM REVIEWED*: Not Applicable *COPY OF PRESCRIPTION DRUG MONITORING REPORT IN PATIENT RUPERTO: Not Applicable Home Medications: Home Meds lisinopriL [Prinivil] 20 mg PO DAILY 05/10/14 [History] Metoprolol Tartrate 25 mg PO BID 01/22/19 [History] PARoxetine HCl [Paxil] 20 mg PO DAILY 01/22/19 [History] Pramipexole Di-HCl [Pramipexole Dihydrochloride] 0.125 mg PO BEDTIME 01/22/19 [History] clonazePAM [Clonazepam] 0.5 mg PO BEDTIME 01/22/19 [History] metFORMIN HCl [Glucophage] 1,000 mg PO BID 01/22/19 [History] Omeprazole Magnesium [Prilosec Otc] 20 mg PO TID 08/09/19 [History] Cholecalciferol (Vitamin D3) [Vitamin D] 5,000 unit PO DAILY 01/30/20 [History] SitaGLIPtin [Januvia] 100 mg PO DAILY 01/30/20 [History] Cyanocobalamin (Vitamin B12) [Vitamin B12] 1 tab PO DAILY 08/15/20 [History] Patient Handouts: Upper Endoscopy, Adult, Care After, Upper Endoscopy, Adult Forms: ED Department Discharge Referrals: Soha Jones NP [Primary Care Provider] - - Discharge Summary/Plan Comment DC Time >30 min.: No - General Info Date of Service: 08/16/20 Subjective Update: Feeling better - Review of Systems Pulmonary: Reports: No Symptoms Cardiovascular: Reports: Chest Pain Gastrointestinal: Reports: No Symptoms Musculoskeletal: Reports: No Symptoms - Patient Data Vitals - Most Recent: Last Vital Signs Temp 97.8 F 08/16/20 07:30 Pulse 62 08/16/20 07:35 Resp 17 08/16/20 07:30 BP 124/84 08/16/20 07:36 Pulse Ox 97 08/16/20 07:30 Weight - Most Recent: 213 lb 9.6 oz I&O - Last 24 hours: Intake & Output 08/15/20 08/16/20 08/16/20 18:59 02:59 10:59 Intake Total 1200 1762 Output Total 300 500 Balance 1200 -300 1262 Lab Results - Last 24 hrs: Laboratory Results - last 24 hr 08/15/20 08/15/20 08/15/20 Range/Units 11:59 11:59 11:59 WBC 5.5 (4.0-10.2) K/uL RBC 5.14 (4.33-5.41) M/uL Hgb 15.2 (13.1-16.8) g/dL Hct 45.9 (39.0-49.0) % MCV 89.3 D (84.0-98.0) fL MCH 29.6 (28.2-33.3) pg MCHC 33.1 (31.7-36.0) g/dL RDW 13.4 (11.2-14.1) % Plt Count 220 (150-350) K/uL Neut % (Auto) 38.5 L (45.0-80.0) % Lymph % (Auto) 44.0 (10.0-50.0) % Hard[place] % (Auto) 11.6 (2.0-14.0) % Eos % (Auto) 5.2 H (0.0-5.0) % Baso % (Auto) 0.7 (0.0-2.0) % Neut # (Auto) 2.13 (1.40-7.00) K/uL Lymph # (Auto) 2.44 (0.50-3.50) K/uL Hard[place] # (Auto) 0.64 (0.00-1.00) K/uL Eos # (Auto) 0.29 (0.00-0.50) K/uL Baso # (Auto) 0.04 (0.00-0.20) K/uL PT 9.5 (9.5-12.0) SEC INR 0.9 APTT 24.5 (24.5-32.8) SEC Sodium 139 (136-145) mmol/L Potassium 3.8 (3.5-5.1) mmol/L Chloride 105 (98-107) mmol/L Carbon Dioxide 25.2 (21.0-32.0) mmol/L BUN 15 (7-18) mg/dL Creatinine 0.86 (0.51-1.17) mg/dL Est Cr Clr Drug Dosing TNP Estimated GFR (MDRD) > 60 mL/min Glucose 200 H (74-106) mg/dL Hemoglobin A1c (4.3-5.7) % Lactic Acid (0.4-2.0) mmol/L Uric Acid 5.8 (2.6-7.2) mg/dL Calcium 9.9 (8.5-10.1) mg/dL Magnesium 2.0 (1.8-2.4) mg/dL Total Bilirubin 0.5 (0.2-1.0) mg/dL AST 27 (15-37) U/L ALT 32 (12-78) U/L Alkaline Phosphatase 84 (46-116) IU/L Creatine Kinase 194 (26-308) U/L Creatine Kinase Index 1.2 (0.0-2.5) % CK-MB (CK-2) 2.40 (0.00-3.60) ng/mL Troponin I 0.000 (0.000-0.056) ng/mL NT-Pro-B Natriuret Pep 84 (0-125) pg/mL Total Protein 7.1 (6.4-8.2) g/dL Albumin 4.1 (3.4-5.0) g/dL Triglycerides (30-150) mg/dL Cholesterol (100-200) mg/dL LDL Cholesterol, Calc (0-100) mg/dL HDL Cholesterol (40-60) mg/dL TSH, Ultra Sensitive 4.154 H (0.358-3.740) mIU/mL Specimen Type Urine Color Urine Appearance Urine pH (5.0-9.0) Ur Specific [place] (1.005-1.030) Urine Protein (NEGATIVE) mg/dL Urine Glucose (UA) (NEGATIVE) mg/dL Urine Ketones (NEGATIVE) mg/dL Urine Occult Blood (NEGATIVE) Urine Nitrite (NEGATIVE) Urine Bilirubin (NEGATIVE) Urine Urobilinogen (0.2-1.0) E.U./dL Ur Leukocyte Esterase (NEGATIVE) Urine RBC /HPF Urine WBC /HPF Ur Epithelial Cells /LPF Urine Bacteria (NONE TO FEW) /HPF SARS-CoV-2 RNA (ANTHONY) (NEGATIVE) 08/15/20 08/15/20 08/15/20 Range/Units 11:59 13:19 16:51 WBC (4.0-10.2) K/uL RBC (4.33-5.41) M/uL Hgb (13.1-16.8) g/dL Hct (39.0-49.0) % MCV (84.0-98.0) fL MCH (28.2-33.3) pg MCHC (31.7-36.0) g/dL RDW (11.2-14.1) % Plt Count (150-350) K/uL Neut % (Auto) (45.0-80.0) % Lymph % (Auto) (10.0-50.0) % Hard[place] % (Auto) (2.0-14.0) % Eos % (Auto) (0.0-5.0) % Baso % (Auto) (0.0-2.0) % Neut # (Auto) (1.40-7.00) K/uL Lymph # (Auto) (0.50-3.50) K/uL Hardin # (Auto) (0.00-1.00) K/uL Eos # (Auto) (0.00-0.50) K/uL Baso # (Auto) (0.00-0.20) K/uL PT (9.5-12.0) SEC INR APTT (24.5-32.8) SEC Sodium (136-145) mmol/L Potassium (3.5-5.1) mmol/L Chloride (98-107) mmol/L Carbon Dioxide (21.0-32.0) mmol/L BUN (7-18) mg/dL Creatinine (0.51-1.17) mg/dL Est Cr Clr Drug Dosing Estimated GFR (MDRD) mL/min Glucose (74-106) mg/dL Hemoglobin A1c (4.3-5.7) % Lactic Acid 3.1 H 1.7 (0.4-2.0) mmol/L Uric Acid (2.6-7.2) mg/dL Calcium (8.5-10.1) mg/dL Magnesium (1.8-2.4) mg/dL Total Bilirubin (0.2-1.0) mg/dL AST (15-37) U/L ALT (12-78) U/L Alkaline Phosphatase (46-116) IU/L Creatine Kinase (26-308) U/L Creatine Kinase Index (0.0-2.5) % CK-MB (CK-2) (0.00-3.60) ng/mL Troponin I (0.000-0.056) ng/mL NT-Pro-B Natriuret Pep (0-125) pg/mL Total Protein (6.4-8.2) g/dL Albumin (3.4-5.0) g/dL Triglycerides (30-150) mg/dL Cholesterol (100-200) mg/dL LDL Cholesterol, Calc (0-100) mg/dL HDL Cholesterol (40-60) mg/dL TSH, Ultra Sensitive (0.358-3.740) mIU/mL Specimen Type Urine Color Urine Appearance Urine pH (5.0-9.0) Ur Specific [place] (1.005-1.030) Urine Protein (NEGATIVE) mg/dL Urine Glucose (UA) (NEGATIVE) mg/dL Urine Ketones (NEGATIVE) mg/dL Urine Occult Blood (NEGATIVE) Urine Nitrite (NEGATIVE) Urine Bilirubin (NEGATIVE) Urine Urobilinogen (0.2-1.0) E.U./dL Ur Leukocyte Esterase (NEGATIVE) Urine RBC /HPF Urine WBC /HPF Ur Epithelial Cells /LPF Urine Bacteria (NONE TO FEW) /HPF SARS-CoV-2 RNA (ANTHONY) Negative (NEGATIVE) 08/15/20 08/16/20 08/16/20 Range/Units 22:45 07:10 07:10 WBC 4.7 (4.0-10.2) K/uL RBC 4.75 (4.33-5.41) M/uL Hgb 14.1 (13.1-16.8) g/dL Hct 43.1 (39.0-49.0) % MCV 90.7 (84.0-98.0) fL MCH 29.7 (28.2-33.3) pg MCHC 32.7 (31.7-36.0) g/dL RDW 13.3 (11.2-14.1) % Plt Count 180 (150-350) K/uL Neut % (Auto) 45.2 (45.0-80.0) % Lymph % (Auto) 39.0 (10.0-50.0) % Hard[place] % (Auto) 10.3 (2.0-14.0) % Eos % (Auto) 4.9 (0.0-5.0) % Baso % (Auto) 0.6 (0.0-2.0) % Neut # (Auto) 2.14 (1.40-7.00) K/uL Lymph # (Auto) 1.85 (0.50-3.50) K/uL Hardin # (Auto) 0.49 (0.00-1.00) K/uL Eos # (Auto) 0.23 (0.00-0.50) K/uL Baso # (Auto) 0.03 (0.00-0.20) K/uL PT (9.5-12.0) SEC INR APTT (24.5-32.8) SEC Sodium 138 (136-145) mmol/L Potassium 3.7 (3.5-5.1) mmol/L Chloride 106 (98-107) mmol/L Carbon Dioxide 27.0 (21.0-32.0) mmol/L BUN 10 (7-18) mg/dL Creatinine 0.85 (0.51-1.17) mg/dL Est Cr Clr Drug Dosing 109.67 Estimated GFR (MDRD) > 60 mL/min Glucose 114 H (74-106) mg/dL Hemoglobin A1c (4.3-5.7) % Lactic Acid (0.4-2.0) mmol/L Uric Acid (2.6-7.2) mg/dL Calcium 9.1 (8.5-10.1) mg/dL Magnesium (1.8-2.4) mg/dL Total Bilirubin 0.7 (0.2-1.0) mg/dL AST 20 (15-37) U/L ALT 30 (12-78) U/L Alkaline Phosphatase 70 (46-116) IU/L Creatine Kinase 74 (26-308) U/L Creatine Kinase Index 1.2 (0.0-2.5) % CK-MB (CK-2) 0.90 (0.00-3.60) ng/mL Troponin I 0.001 (0.000-0.056) ng/mL NT-Pro-B Natriuret Pep (0-125) pg/mL Total Protein 6.1 L (6.4-8.2) g/dL Albumin 3.5 (3.4-5.0) g/dL Triglycerides 183 H (30-150) mg/dL Cholesterol 167 (100-200) mg/dL LDL Cholesterol, Calc 99 (0-100) mg/dL HDL Cholesterol 31 L (40-60) mg/dL TSH, Ultra Sensitive (0.358-3.740) mIU/mL Specimen Type Urincc Urine Color Yellow Urine Appearance Clear Urine pH 6.0 (5.0-9.0) Ur Specific [place] 1.025 (1.005-1.030) Urine Protein Negative (NEGATIVE) mg/dL Urine Glucose (UA) 250 H (NEGATIVE) mg/dL Urine Ketones Negative (NEGATIVE) mg/dL Urine Occult Blood Negative (NEGATIVE) Urine Nitrite Negative (NEGATIVE) Urine Bilirubin Negative (NEGATIVE) Urine Urobilinogen 0.2 (0.2-1.0) E.U./dL Ur Leukocyte Esterase Negative (NEGATIVE) Urine RBC 0-5 /HPF Urine WBC 0-5 /HPF Ur Epithelial Cells Rare /LPF Urine Bacteria Rare (NONE TO FEW) /HPF SARS-CoV-2 RNA (ANTHONY) (NEGATIVE) 08/16/20 Range/Units 07:10 WBC (4.0-10.2) K/uL RBC (4.33-5.41) M/uL Hgb (13.1-16.8) g/dL Hct (39.0-49.0) % MCV (84.0-98.0) fL MCH (28.2-33.3) pg MCHC (31.7-36.0) g/dL RDW (11.2-14.1) % Plt Count (150-350) K/uL Neut % (Auto) (45.0-80.0) % Lymph % (Auto) (10.0-50.0) % [place] % (Auto) (2.0-14.0) % Eos % (Auto) (0.0-5.0) % Baso % (Auto) (0.0-2.0) % Neut # (Auto) (1.40-7.00) K/uL Lymph # (Auto) (0.50-3.50) K/uL [place] # (Auto) (0.00-1.00) K/uL Eos # (Auto) (0.00-0.50) K/uL Baso # (Auto) (0.00-0.20) K/uL PT (9.5-12.0) SEC INR APTT (24.5-32.8) SEC Sodium (136-145) mmol/L Potassium (3.5-5.1) mmol/L Chloride (98-107) mmol/L Carbon Dioxide (21.0-32.0) mmol/L BUN (7-18) mg/dL Creatinine (0.51-1.17) mg/dL Est Cr Clr Drug Dosing Estimated GFR (MDRD) mL/min Glucose (74-106) mg/dL Hemoglobin A1c 6.3 H (4.3-5.7) % Lactic Acid (0.4-2.0) mmol/L Uric Acid (2.6-7.2) mg/dL Calcium (8.5-10.1) mg/dL Magnesium (1.8-2.4) mg/dL Total Bilirubin (0.2-1.0) mg/dL AST (15-37) U/L ALT (12-78) U/L Alkaline Phosphatase (46-116) IU/L Creatine Kinase (26-308) U/L Creatine Kinase Index (0.0-2.5) % CK-MB (CK-2) (0.00-3.60) ng/mL Troponin I (0.000-0.056) ng/mL NT-Pro-B Natriuret Pep (0-125) pg/mL Total Protein (6.4-8.2) g/dL Albumin (3.4-5.0) g/dL Triglycerides (30-150) mg/dL Cholesterol (100-200) mg/dL LDL Cholesterol, Calc (0-100) mg/dL HDL Cholesterol (40-60) mg/dL TSH, Ultra Sensitive (0.358-3.740) mIU/mL Specimen Type Urine Color Urine Appearance Urine pH (5.0-9.0) Ur Specific [place] (1.005-1.030) Urine Protein (NEGATIVE) mg/dL Urine Glucose (UA) (NEGATIVE) mg/dL Urine Ketones (NEGATIVE) mg/dL Urine Occult Blood (NEGATIVE) Urine Nitrite (NEGATIVE) Urine Bilirubin (NEGATIVE) Urine Urobilinogen (0.2-1.0) E.U./dL Ur Leukocyte Esterase (NEGATIVE) Urine RBC /HPF Urine WBC /HPF Ur Epithelial Cells /LPF Urine Bacteria (NONE TO FEW) /HPF SARS-CoV-2 RNA (ANTHONY) (NEGATIVE) Med Orders - Current: Current Medications Acetaminophen (Tylenol) 650 mg PO Q4H PRN PRN Reason: Pain Last Admin: 08/16/20 03:59 Dose: 650 mg Documented by: Alogliptin Benzoate (Alogliptin) 25 mg PO DAILY [facility] Cholecalciferol (Vitamin D3) 5,000 unit PO DAILY [facility] Last Admin: 08/16/20 07:35 Dose: 5,000 unit Documented by: Cyanocobalamin (Vitamin B12) 1,000 mcg PO DAILY [facility] Last Admin: 08/16/20 07:35 Dose: 1,000 mcg Documented by: Ceftriaxone Sodium 1 gm/ (Sodium Chloride) 100 mls @ 200 mls/hr IV Q12H [facility] Last Admin: 08/15/20 23:02 Dose: 200 mls/hr Documented by: Lactated Ringer's (Ringers, Lactated) 1,000 mls @ 100 mls/hr IV ASDIRECTED [facility] Last Admin: 08/16/20 04:00 Dose: 100 mls/hr Documented by: Lisinopril (Prinivil) 20 mg PO DAILY [facility] Last Admin: 08/16/20 07:36 Dose: 20 mg Documented by: Metformin HCl (Glucophage) 1,000 mg PO BID [facility] Last Admin: 08/16/20 07:34 Dose: 1,000 mg Documented by: Metoprolol Tartrate (Lopressor) 25 mg PO BID [facility] Last Admin: 08/16/20 07:35 Dose: 25 mg Documented by: Pantoprazole Sodium (Protonix Iv) 40 mg IVPUSH BID@0800,1999 [facility] Last Admin: 08/16/20 07:34 Dose: 40 mg Documented by: Paroxetine HCl (Paxil) 20 mg PO DAILY [facility] Last Admin: 08/16/20 07:35 Dose: 20 mg Documented by: Pramipexole Dihydrochloride (Mirapex) 0.125 mg PO BEDTIME [facility] Last Admin: 08/15/20 20:19 Dose: 0.125 mg Documented by: Sodium Chloride (Saline Flush) 10 ml FLUSH ASDIRECTED PRN PRN Reason: Keep Vein Open Last Admin: 08/16/20 07:34 Dose: 10 ml Documented by: Sodium Chloride (Saline Flush) 10 ml FLUSH Q12HR PRN PRN Reason: Keep Vein Open Temazepam (Restoril) 15 mg PO BEDTIME PRN PRN Reason: Insomnia Last Admin: 08/15/20 22:45 Dose: 15 mg Documented by: Discontinued Medications Famotidine (Pepcid) 40 mg IVPUSH ONETIME ONE Stop: 08/15/20 11:32 Last Admin: 08/15/20 11:54 Dose: 40 mg Documented by: Ceftriaxone Sodium 1 gm/ (Sodium Chloride) 100 mls @ 200 mls/hr IV ONETIME ONE Stop: 08/15/20 13:09 Last Admin: 08/15/20 12:49 Dose: 200 mls/hr Documented by: Lactated Ringer's (Ringers, Lactated) 1,000 mls @ 999 mls/hr IV .BOLUS ONE Stop: 08/15/20 13:40 Last Admin: 08/15/20 12:54 Dose: 999 mls/hr Documented by: Ondansetron HCl (Zofran) 4 mg IVPUSH ONETIME ONE Stop: 08/15/20 12:29 Last Admin: 08/15/20 12:37 Dose: 4 mg Documented by: Pantoprazole Sodium (Protonix Iv) 40 mg IVPUSH Q12H WILLY Last Admin: 08/15/20 18:35 Dose: 40 mg Documented by: - Exam General: Reports: Alert, Oriented, No Acute Distress Lungs: Reports: Normal Respiratory Effort Cardiovascular: Reports: Regular Rate
--- NOTE | 2020-08-16 15:37 | PN ---
Date of Service: 08/15/2020 POSTOPERATIVE NOTE: PREOPERATIVE DIAGNOSIS: Chest pain after swallowing a toothpick. POSTOPERATIVE DIAGNOSIS: Normal upper endoscopy. OPERATION PERFORMED: Esophagogastroduodenoscopy. FINDINGS: The patient's esophagus appeared normal, no foreign body, specifically no toothpick was seen, and there was no visible evidence of esophageal, gastric, or duodenal injury. ESTIMATED BLOOD LOSS: Zero. COMPLICATIONS: None. PROGNOSIS: Good. ELLY Sandra MD /[id number]
== END 2020-08-16 10:15 | disposition home or self-care (01) ==
LOC: LL.SDS 11:20 → LL.MS 16:15 → UNDOADMOB 16:15 → LL.MS 16:35
PROVIDERS: ADMIT Family Medicine; ATTEND Family Medicine
DX: R07.2 Precordial pain (principal); E78.00 Pure hypercholesterolemia, unspecified; I10 Essential (primary) hypertension; E78.5 Hyperlipidemia, unspecified; R79.89 Other specified abnormal findings of blood chemistry; E11.3299 Type 2 diabetes mellitus with mild nonproliferative diabetic retinopathy without macular edema, unspecified eye; F41.8 Other specified anxiety disorders; Z20.828 Contact with and (suspected) exposure to other viral communicable diseases; M89.49 Other hypertrophic osteoarthropathy, multiple sites; K21.9 Gastro-esophageal reflux disease without esophagitis; G47.30 Sleep apnea, unspecified; E03.9 Hypothyroidism, unspecified; Z88.8 Allergy status to other drugs, medicaments and biological substances; Z79.899 Other long term (current) drug therapy
CPT/HCPCS: 36415; 43235; 71046; 71250; 80053; 80061; 81001; 82550; 82553; 83036; 83605; 83735; 83880; 84443; 84484; 84550; 85025; 85610; 85730; 87086; 93005; A9270; C9113; J0696; J2001; J2250; J2405; J2704; J3490; J7050; J7120; 00731; 93010; 99217; 99219

== ENCOUNTER 2020-09-16 09:06 | Emergency (ER) | payer OTHER ==
[2020-09-16] MEDS ORDERED: Famotidine 20 MG/2 ML SDV IVPUSH ONE (09:11)
[2020-09-16] MEDS ORDERED: Lactated Ringers 1,000 ML IV ONE (09:11)
[2020-09-16] MEDS ORDERED: Ondansetron 4 MG/2 ML SDV IVPUSH ONE (09:11)
[2020-09-16] MEDS ORDERED: Pantoprazole 40 MG Vial IVPUSH ONE (09:11)
[2020-09-16] MEDS ORDERED: Sodium Chloride 0.9% 10 ML Syringe FLUSH PRN (09:11)
--- NOTE | 2020-09-16 09:11 | EDM.PDOC ---
ED HPI GENERAL MEDICAL PROBLEM - General Chief Complaint: Genitourinary Problem Stated Complaint: testilcle pain Time Seen by Provider: 09/16/20 09:10 Source of Information: Reports: Family (), Old Records ([facility] chart/EMR), Other ([facility] EMR reviewed on 01/30/2020.) History Limitations: Reports: No Limitations - History of Present Illness INITIAL COMMENTS - FREE TEXT/NARRATIVE: The patient was brought to the emergency room via private automobile by his for evaluation of 08/31 right testicular sharp, colic type pain associated with some mild nausea without emesis and moderate diaphoresis with symptoms starting shortly after he left work this evening at 7 AM. No recent history of abdominal pain, heartburn, diarrhea, melena, gross hematochezia, or any food intolerance, including fatty foods, etc. with normal bowel movement earlier this morning. He denies any gross hematuria or other UTI symptoms with known previous history of urolithiasis as below. The patient denies any chest pain/pressure, heart flutter, dizziness, orthostasis, orthopnea, diaphoresis, paresthesias, recent decreased exercise tolerance, or any other anginal-type symptoms. The patient also denies any recent fever, wheezing, dyspnea, etc. with stable occasional nonspecific chronic nonproductive cough. He has not taken any medications for his symptoms to this point. His pain does radiate into the right inguinal area with no recent history of lifting injury, etc. Onset: Today, Sudden Onset Date: 09/16/20 Onset Time: 07:00 Duration: Colic, Constant, Getting Worse Location: Reports: Abdomen (Right inguinal and testicular), Radiates to (As above). Denies: Head, Face, Neck, Chest, Back, Pelvis, Upper Extremity, Left, Upper Extremity, Right, Lower Extremity, Left, Lower Extremity, Right Quality: Reports: Same as Previous Episode, Sharp, Stabbing Severity: Severe Improves with: Reports: None Worsens with: Reports: None Context: Reports: Other (As above). Denies: Lifting, Sick Contact, Trauma Associated Symptoms: Reports: Cough (Borderline stable chronic), Nausea/Vomiting (No emesis). 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 (see below) (None) Right Scrotum Pain Score (Numeric/FACES): 10 - Related Data Allergies Allergy/AdvReac Type Severity Reaction Status Date / Time gluten Allergy Rash Verified 08/15/20 11:26 sumatriptan [From Imitrex] Allergy Hypertensio Verified 08/15/20 11:26 n sumatriptan succinate Allergy Hypertensio Verified 08/15/20 11:26 [From Imitrex] n Home Meds: Home Meds lisinopriL [Prinivil] 20 mg PO DAILY 05/10/14 [History] Metoprolol Tartrate 25 mg PO BID 01/22/19 [History] PARoxetine HCl [Paxil] 20 mg PO DAILY 01/22/19 [History] Pramipexole Di-HCl [Pramipexole Dihydrochloride] 0.125 mg PO BEDTIME 01/22/19 [History] clonazePAM [Clonazepam] 0.5 mg PO BEDTIME 01/22/19 [History] metFORMIN HCl [Glucophage] 1,000 mg PO BID 01/22/19 [History] Omeprazole Magnesium [Prilosec Otc] 20 mg PO TID 08/09/19 [History] Cholecalciferol (Vitamin D3) [Vitamin D] 5,000 unit PO DAILY 01/30/20 [History] SitaGLIPtin [Januvia] 100 mg PO DAILY 01/30/20 [History] Cyanocobalamin (Vitamin B12) [Vitamin B12] 1 tab PO DAILY 08/15/20 [History] Magnesium Oxide [Magnesium] 400 mg PO DAILY 09/16/20 [History] Past Medical History HEENT History: Reports: Allergic Rhinitis, Impaired Vision, Other (See Below). Denies: Cataract, Glaucoma, Hard of Hearing, Macular Degeneration, Otitis Media, Retinal Detachment Other HEENT History: Diabetic retinopathy, OTC reading glasses. Cardiovascular History: Reports: High Cholesterol, Hypertension, Other (See Below). Denies: Afib, Arrhythmia, Blood Clots/VTE/DVT, CAD, Cardiomyopathy, Heart Failure, Heart Murmur, AL, PVD, Syncope Other Cardiovascular History: History of hyperlipidemia with fatty liver by CT scan Respiratory History: Reports: Intubation, Previous, Sleep Apnea, Other (See Below). Denies: Asthma, Bronchitis, Recurrent, COPD, Intubation, Difficult, PE, Pneumonia, Recurrent, Pneumothorax, TB Other Respiratory History: Patient is currently compliant with CPAP with previous history of noncompliance. Gastrointestinal History: Reports: Cholelithiasis, Fatty Liver, GERD, Hiatal Hernia, PUD. Denies: Celiac Disease, Chronic Constipation, Chronic Diarrhea, Colon Polyp, Diverticulosis, Fecal Incontinence, GI Bleed, Hepatitis, Inflammatory Bowel Disease, Irritable Bowel Syndrome, Jaundice Other Gastrointestinal History: Note history of Monica fundoplication and cholecystectomy as below Genitourinary History: Reports: BPH, Prostate Disorder, Renal Calculus, Other (See Below). Denies: Acute Renal Failure, Chronic Renal Insuffiency, STD, Urinary Incontinence, UTI, Recurrent Other Genitourinary History: Bilateral moderate nephrolithiasis by CT scan with left-sided urolithiasis in March 2020 with spontaneous passage. Musculoskeletal History: Reports: Arthritis, Back Pain, Chronic, Neck Pain, Chronic, Osteoarthritis, Other (See Below). Denies: Amputation, Fracture, Osteoporosis, RA, SLE Other Musculoskeletal History: Positive BETHANIE in July 2016 Neurological History: Reports: Headaches, Chronic, Head Trauma, Migraines, Other (See Below). Denies: Alzheimers Disease, Cerebral Aneurysms, Concussion, CVA, MS, Neuropathy, Peripheral, Parkinson's, Seizure, TIA Other Neuro History: Refractory recurrent migraine/tension headaches, head contusion without concussion on 04/25/16 Psychiatric History: Reports: Addiction, Anxiety, Depression, Other (See Below). Denies: Abuse, Victim of, ADD, ADHD, Psych Hospitalization(s), PTSD, Suicide Attempt, Suicidal Ideation Other Psychiatric History: History of previous chronic narcotic use. Endocrine/Metabolic History: Reports: Diabetes, Type II, Other (See Below). Denies: Diabetes, Gestational, Diabetes, Type I, Diabetes Mellitus, Type 3c, Hypothyroidism, IDDM, Obesity/BMI 30+ Other Endocrine/Metabolic History: Hypocalcemia. Hematologic History: Reports: Blood Transfusion(s), Other (See Below). Denies: Anemia, Iron Deficiency Other Hematologic History: Blood transfusions at time of Monica fundoplication Immunologic History: Reports: Other (See Below). Denies: AIDS, HIV, SLE Other Immunologic History: Note previous negative workup for positive BETHANIE Oncologic (Cancer) History: Reports: None. Denies: Basal Cell Carcinoma, Bladder, Colon, Hodgkin's Lymphoma, Leukemia, Lymphoma, Malignant Melanoma, Non- Hodgkin's Lymphoma, Prostate, Squamous Cell Carcinoma Dermatologic History: Reports: Eczema, Venous Stasis Dermatitis - Infectious Disease History Infectious Disease History: Reports: Chicken Pox. Denies: C-Difficile, Measles, Meningitis, Mononucleosis, MRSA, Mumps, Pertussis (Whooping Cough), Rheumatic Fever, Rubella, Scarlet Fever, Shingles, TB, VRE - Past Surgical History Head Surgeries/Procedures: Reports: None HEENT Surgical History: Reports: None, Oral Surgery, Other (See Below). Denies: Adenoidectomy, Eye Surgery, Laser Surgery, LASIK, Myringotomy w Tube(s), Naso- Sinus Surgery, Tonsillectomy Other HEENT Surgeries/Procedures: Previous tooth extractions. Cardiovascular Surgical History: Reports: None. Denies: Varicose Respiratory Surgical History: Reports: None. Denies: Thoracentesis GI Surgical History: Reports: Appendectomy, Cholecystectomy, Colonoscopy, EGD, Hernia, Inguinal, Monica Fundoplication, Other (See Below). Denies: Hernia Repair/Other, Polypectomy Other GI Surgeries/Procedures: Monica fundoplication in September 2009. Appendectomy in 1990. Laparoscopic cholecystectomy with concomitant liver biopsy on 08/08/19. Last EGD on 07/26/2020 with negative work-up for foreign body with previous EGD and colonoscopy on 08/18/19 and additional previous EGD on 03/23/17, 2009 and in 2007. Previous colonoscopy in about 2012. Right inguinal hernia repair in 1988. Male Surgical History: Reports: Circumcision, Vasectomy, Other (See Below) Other Male Surgeries/Procedures: Circumcision as an . Vasectomy in about 1995. Endocrine Surgical History: Reports: None. Denies: Thyroid Biopsy Neurological Surgical History: Reports: None. Denies: C-Spine, Discectomy, Laminectomy, Lumbar Spine, Sacral Spine, Spinal Fusion, Thoracic Spine, Vertebroplasty Musculoskeletal Surgical History: Reports: Arthroscopic Knee, Arthroscopic Procedure, Shoulder Surgery, Other (See Below). Denies: Carpal Tunnel, Ganglion Cyst, Joint Replacement, ORIF Other Musculoskeletal Surgeries/Procedures:: Right-sided arthroscopic meniscal repair in 1986. Right laparoscopic shoulder surgery in October 2016. Oncologic Surgical History: Reports: None Dermatological Surgical History: Reports: None - Past Imaging History Past Imaging History: Reports: Angiography ([facility] in February 2015.), CAT Scan (CT of the chest on 08/15/2020 with CTA of the chest on 03/21/[address]. [address] of the brain on 04/25/16 with multiple previous evaluations by history. CT of the abdomen and pelvis in March 2020 and on 04/21/11 and 07/30/07.), HIDA Scan (07/29/07), MRI (Negative MRI of the brain on 03/25/2020 with previous evaluations on 03/25/2020 and 09/27/2007.), Stress Testing (Cardiac stress test of unknown type at [facility] in February 2015.), Ultrasound (Gallbladder ultrasound on 07/26/17.), Upper GI X-Ray/Series (Upper GI with swallowing study on 02/25/12.), Venous Doppler (Left leg on 04/05/06.), Other (See Below) (EMG and nerve conduction studies in July 2016. Esophageal motility evaluation on 05/19/12.) Social & Family History - Family History HEENT: Reports: Impaired Vision, Other (See Below). Denies: Glaucoma, Macular Degeneration, Retinal Detachment Other HEENT Family History: Brother with IDDM and secondary diabetic retinopathy. Cardiac: Reports: CAD, Heart Murmur, AL, Stent, Syncope, Other (See Below). Denies: Afib, Aneurysm, Arrhythmia, Blood Clots/VTE/DVT, Bypass, Heart Failure, High Cholesterol, Hypertension, Pacemaker Other Cardiac Family History: History of early heart attacks in family, including brother in his 50s another brother in his 60s with brother also having a valve disorder with secondary syncopal episodes, which did require valve replacement at age 62. Both brothers did have PTCA/stents. Father with initial AL at age 50 with subsequent multiple MIs with no further procedures done however fatal AL at age 60. Respiratory: Reports: None. Denies: Asthma, COPD, PE, Pneumothorax, Sleep Apnea GI: Reports: None. Denies: Celiac Disease, Cholelithiasis, Colon Polyps, GERD, GI bleed, Hepatitis, Inflammatory Bowel Disease, Irritable Bowel Syndrome, PUD : Reports: Dialysis, Renal Disease/Insufficiency Other Family History: Brother with IDDM and secondary diabetic nephropathy and current dialysis. OBGYN: Reports: None. Denies: Endometriosis, Recurrent Spontaneous Musculoskeletal: Reports: None. Denies: Arthritis, Gout, Osteoarthritis, RA, SLE Neurological: Reports: Neuropathy, Diabetic, Neuropathy, Peripheral, Pa rkinson's, Other (See Below). Denies: Alzheimers Disease, Cerebral Aneurysms, CVA, Dementia, Migraines, MS, Seizure, TIA Other Neurological Family History: Brother with diabetic neuropathy. Maternal aunt with Parkinson's disease Psychiatric: Reports: None Endocrine/Metabolic: Reports: Diabetes, type II, IDDM, Other (See Below). Denies: Diabetes, Type I, Diabetes Mellitus, Type 3c, Hypothyroidism Other Endocrine/Metabolic Family History: Brother with IDDM and secondary complications as above. Hematologic: Reports: None. Denies: Anemia, SLE Immunologic: Reports: None. Denies: AIDS, HIV, SLE Dermatologic: Reports: None. Denies: Eczema, Psoriasis Oncologic: Reports: None. Denies: Bladder, Colon, Esophageal, Hodgkin's Lymphoma, Leukemia, Lymphoma, Non-Hodgkin's Lymphoma, Prostate, Skin - Tobacco Use Tobacco Use Status *Q: Never Tobacco User Tobacco Use Within Last Twelve Months: No Used Tobacco, but Quit: No Smoking Cessation Information Provided To Patient: No Second Hand Smoke Exposure: No Second Hand Smoke Education Provided: No - Caffeine Use Caffeine Use: Reports: Coffee, Soda. Denies: Energy Drinks, Tea Caffeine Use Comment: One cup of coffee per day, 2 sodas per day - Alcohol Use Alcohol Use History: No Days Per Week of Alcohol Use: 0 Number of Drinks Per Day: 0 Number of Drinks Per Day Comment: No previous DWIs, problems with alcohol abuse, etc. Total Drinks Per Week: 0 Alcohol Use in Last Twelve Months: No - Recreational Drug Use Recreational Drug Use: No Drug Use in Last 12 Months: No Recreational Drug Type: Denies: Cocaine, Heroin, Inhalants (Glues, Solvents, Aerosols), LSD (Acid), Marijuana/Hashish, Methamphetamine, Morphine, Oxycodone - Living Situation & Occupation Living situation: Reports: (1989, 3 children), with Family () Occupation: Employed (Currently works in [employer] at [employer]. 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 ED EXAM, RENAL/ - Physical Exam Exam: See Below Exam Limited By: No Limitations General Appearance: Alert, WD/WN, Anxious (Moderate secondary to discomfort), Mild Distress (Secondary to discomfort) Head: Atraumatic, Normocephalic. No: Facial Swelling, Facial Tenderness, Sinus Tenderness Neck: Normal Inspection, Supple, Non-Tender, Full Range of Motion. No: Carotid Bruit, Lymphadenopathy (L), Lymphadenopathy (R), Thyromegaly Respiratory/Chest: No Respiratory Distress, Lungs Clear, Normal Breath Sounds, No Accessory Muscle Use, Chest Non-Tender. No: Rhonchi, Pleural Rub Cardiovascular: Normal Peripheral Pulses, Regular Rate, Rhythm, No Edema, No Gallop, No JVD, No Murmur, No Rub. No: Gallop/S3, Gallop/S4, Friction Rub GI/Abdominal: Normal Bowel Sounds, Soft, Non-Tender, No Organomegaly, No Distention, No Abnormal Bruit, No Mass, Pelvis Stable. No: Guarding, Rigid, Rebound, Tender, Hernia (Male) Exam: No Hernia, Circumcised. No: Hernia, Inguinal Lymphadenopathy, Rash, Scrotal Swelling, Scrotum Tenderness (L), Scrotum Tenderness (R), Suprapubic Fullness, Testicular Mass, Testicular Tenderness (L), Testicular Tenderness (R), Urethral Discharge Rectal (Males) Exam: Deferred Back Exam: Normal Inspection, Full Range of Motion. No: CVA Tenderness (L), CVA Tenderness (R), Muscle Spasm Extremities: Normal Inspection, Normal Range of Motion, Non-Tender, No Pedal Edema, Normal Capillary Refill. No: Ashlyn's Sign Neurological: Alert, Oriented, CN II-XII Intact, Normal Cognition, Normal Gait, Normal Reflexes (Negative Babinski's), No Motor/Sensory Deficits Psychiatric: Anxious, Depressed Mood (Moderate mild with adequate eye contact) Skin Exam: Warm, Dry, Intact, Normal Color, No Rash. No: Diaphoretic, Ecchymosis, Pallor, Petechiae, Wound/Incision Lymphatic: No Adenopathy Course - Vital Signs Last Recorded V/S: Last Vital Signs Temp 37.1 C 09/16/20 09:10 Pulse 64 09/16/20 11:28 Resp 16 09/16/20 11:28 BP 139/82 09/16/20 11:28 Pulse Ox 95 09/16/20 11:28 Vital Signs - 24 hr 09/16/20 09/16/20 09/16/20 09:10 09:45 10:00 Temperature [ 37.1 C Temporal] Pulse, 80 73 73 Peripheral [ Pulse Oximetry] Respiratory 18 18 18 Rate Blood Pressure 142/105 H 150/85 H 127/86 [Right Upper Arm] O2 Sat by Pulse 100 100 98 Oximetry 09/16/20 09/16/20 09/16/20 10:15 10:30 10:45 Temperature [ Temporal] Pulse, 71 67 67 Peripheral [ Pulse Oximetry] Respiratory 16 18 16 Rate Blood Pressure 136/86 140/85 145/86 H [Right Upper Arm] O2 Sat by Pulse 98 99 99 Oximetry 09/16/20 09/16/20 11:15 11:28 Temperature [ Temporal] Pulse, 72 64 Peripheral [ Pulse Oximetry] Respiratory 16 16 Rate Blood Pressure 139/82 [Right Upper Arm] O2 Sat by Pulse 94 L 95 Oximetry - Orders/Labs/Meds Orders: Active Orders 24 hr Category Date Time Status Peripheral IV Care [RC] . DIRECTED Care 09/16/20 09:11 Active Nothing Per Oral Diet [DIET] Diet 09/16/20 Breakfast Active Abdomen Pelvis wo Cont [CT] Stat Exams 09/16/20 09:26 Taken CULTURE URINE [RM] Stat Lab 09/16/20 09:20 Received Sodium Chloride 0.9% [Saline Flush] Med 09/16/20 09:11 Active 10 ml FLUSH ASDIRECTED PRN Obtain Past Medical Record [OM.PC] Urgent Oth 09/16/20 09:11 Active Peripheral IV Insertion Adult [OM.PC] Stat Oth 09/16/20 09:11 Ordered Resuscitation Status Stat Resus Stat 09/16/20 09:11 Ordered Medication Orders Sodium Chloride (Saline Flush) 10 ml FLUSH ASDIRECTED PRN PRN Reason: Keep Vein Open Last Admin: 09/16/20 11:02 Dose: 10 ml Documented by: MARY Labs: Laboratory Tests 09/16/20 09/16/20 09/16/20 Range/Units 09:14 09:14 09:14 WBC 6.9 (4.0-10.2) K/uL RBC 4.83 (4.33-5.41) M/uL Hgb 14.3 (13.1-16.8) g/dL Hct 43.0 (39.0-49.0) % MCV 89.0 (84.0-98.0) fL MCH 29.6 (28.2-33.3) pg MCHC 33.3 (31.7-36.0) g/dL RDW 12.7 (11.2-14.1) % Plt Count 194 (150-350) K/uL Neut % (Auto) 32.4 L (45.0-80.0) % Lymph % (Auto) 51.2 H (10.0-50.0) % Trego % (Auto) 12.5 (2.0-14.0) % Eos % (Auto) 3.5 (0.0-5.0) % Baso % (Auto) 0.4 (0.0-2.0) % Neut # (Auto) 2.23 (1.40-7.00) K/uL Lymph # (Auto) 3.53 H (0.50-3.50) K/uL Trego # (Auto) 0.86 (0.00-1.00) K/uL Eos # (Auto) 0.24 (0.00-0.50) K/uL Baso # (Auto) 0.03 (0.00-0.20) K/uL PT 10.0 (9.5-12.0) SEC INR 1.0 APTT 25.2 (24.5-32.8) SEC Sodium (136-145) mmol/L Potassium (3.5-5.1) mmol/L Chloride (98-107) mmol/L Carbon Dioxide (21.0-32.0) mmol/L BUN (7-18) mg/dL Creatinine (0.51-1.17) mg/dL Est Cr Clr Drug Dosing Estimated GFR (MDRD) mL/min Glucose (74-106) mg/dL Lactic Acid (0.4-2.0) mmol/L Uric Acid (2.6-7.2) mg/dL Calcium (8.5-10.1) mg/dL Magnesium (1.8-2.4) mg/dL Total Bilirubin (0.2-1.0) mg/dL AST (15-37) U/L ALT (12-78) U/L Alkaline Phosphatase (46-116) IU/L Total Protein (6.4-8.2) g/dL Albumin (3.4-5.0) g/dL Amylase 182 H (25-115) U/L Lipase (73-393) U/L Specimen Type Urine Color Urine Appearance Urine pH (5.0-9.0) Ur Specific [place]hoe (1.005-1.030) Urine Protein (NEGATIVE) mg/dL Urine Glucose (UA) (NEGATIVE) mg/dL Urine Ketones (NEGATIVE) mg/dL Urine Occult Blood (NEGATIVE) Urine Nitrite (NEGATIVE) Urine Bilirubin (NEGATIVE) Urine Urobilinogen (0.2-1.0) E.U./dL Ur Leukocyte Esterase (NEGATIVE) Urine RBC /HPF Urine WBC /HPF Ur Epithelial Cells /LPF Urine Bacteria (NONE TO FEW) /HPF 09/16/20 09/16/20 09/16/20 Range/Units 09:14 09:14 09:20 WBC (4.0-10.2) K/uL RBC (4.33-5.41) M/uL Hgb (13.1-16.8) g/dL Hct (39.0-49.0) % MCV (84.0-98.0) fL MCH (28.2-33.3) pg MCHC (31.7-36.0) g/dL RDW (11.2-14.1) % Plt Count (150-350) K/uL Neut % (Auto) (45.0-80.0) % Lymph % (Auto) (10.0-50.0) % Trego % (Auto) (2.0-14.0) % Eos % (Auto) (0.0-5.0) % Baso % (Auto) (0.0-2.0) % Neut # (Auto) (1.40-7.00) K/uL Lymph # (Auto) (0.50-3.50) K/uL Trego # (Auto) (0.00-1.00) K/uL Eos # (Auto) (0.00-0.50) K/uL Baso # (Auto) (0.00-0.20) K/uL PT (9.5-12.0) SEC INR APTT (24.5-32.8) SEC Sodium 139 (136-145) mmol/L Potassium 4.1 (3.5-5.1) mmol/L Chloride 103 (98-107) mmol/L Carbon Dioxide 23.5 (21.0-32.0) mmol/L BUN 16 (7-18) mg/dL Creatinine 1.09 (0.51-1.17) mg/dL Est Cr Clr Drug Dosing TNP Estimated GFR (MDRD) > 60 mL/min Glucose 158 H (74-106) mg/dL Lactic Acid 2.0 (0.4-2.0) mmol/L Uric Acid 5.0 (2.6-7.2) mg/dL Calcium 10.2 H (8.5-10.1) mg/dL Magnesium 1.7 L (1.8-2.4) mg/dL Total Bilirubin 0.7 (0.2-1.0) mg/dL AST 21 (15-37) U/L ALT 27 (12-78) U/L Alkaline Phosphatase 80 (46-116) IU/L Total Protein 7.1 (6.4-8.2) g/dL Albumin 4.2 (3.4-5.0) g/dL Amylase (25-115) U/L Lipase 213 (73-393) U/L Specimen Type Urinvoid Urine Color Yellow Urine Appearance Clear Urine pH 8.5 (5.0-9.0) Ur Specific [place] 1.025 (1.005-1.030) Urine Protein Negative (NEGATIVE) mg/dL Urine Glucose (UA) Negative (NEGATIVE) mg/dL Urine Ketones Negative (NEGATIVE) mg/dL Urine Occult Blood Moderate H (NEGATIVE) Urine Nitrite Negative (NEGATIVE) Urine Bilirubin Negative (NEGATIVE) Urine Urobilinogen 0.2 (0.2-1.0) E.U./dL Ur Leukocyte Esterase Negative (NEGATIVE) Urine RBC 30-40 H /HPF Urine WBC Not seen /HPF Ur Epithelial Cells Rare /LPF Urine Bacteria Rare (NONE TO FEW) /HPF Urine specimen also set up for culture and sensitivity Meds: Medications Generic Name Dose Route Start Last Admin Trade Name Freq PRN Reason Stop Dose Admin Sodium Chloride 10 ml 09/16/20 09:11 09/16/20 11:02 Saline Flush FLUSH 10 ml ASDIRECTED PRN Administration Keep Vein Open Discontinued Medications Generic Name Dose Route Start Last Admin Trade Name Freq PRN Reason Stop Dose Admin Famotidine 40 mg 09/16/20 09:11 09/16/20 09:20 Pepcid IVPUSH 09/16/20 09:12 40 mg ONETIME ONE Administration Hydromorphone HCl 0.5 mg 09/16/20 09:24 09/16/20 09:30 Dilaudid IVPUSH 09/16/20 09:25 0.5 mg ONETIME ONE Administration Hydromorphone HCl 0.5 mg 09/16/20 10:45 09/16/20 10:54 Dilaudid IVPUSH 09/16/20 10:46 0.5 mg ONETIME ONE Administration Lactated Ringer's 1,000 mls @ 999 mls/hr 09/16/20 09:11 09/16/20 09:48 Ringers, Lactated IV 09/16/20 10:11 999 mls/hr .BOLUS ONE Administration Ketorolac Tromethamine 30 mg 09/16/20 09:12 09/16/20 09:16 Toradol IVPUSH 09/16/20 09:13 30 mg ONETIME ONE Administration Lorazepam 0.5 mg 09/16/20 09:25 09/16/20 09:28 Ativan IVPUSH 09/16/20 09:26 0.5 mg ONETIME ONE Administration Ondansetron HCl 4 mg 09/16/20 09:11 09/16/20 09:17 Zofran IVPUSH 09/16/20 09:12 4 mg ONETIME ONE Administration Pantoprazole Sodium 40 mg 09/16/20 09:11 09/16/20 09:20 Protonix Iv IVPUSH 09/16/20 09:12 40 mg ONETIME ONE Administration Tamsulosin HCl 0.4 mg 09/16/20 09:15 09/16/20 09:22 Flomax PO 09/16/20 09:16 0.4 mg ONETIME ONE Administration - Radiology Interpretation Free Text/Narrative:: Telephone consultation at 10:32 AM with the radiology department at [facility]. Preliminary verbal report of CT scan of the abdomen and pelvis without contrast using stone protocol was positive for moderate bilateral nephrolithiasis with 4 mm stone at the distal ureteral and vesicular junction with only mild hydronephrosis. Resolution of previous left-sided urolithiasis and mild hydronephrosis since March 2020. CT Results Date: 09/16/20 CT Results Time: 10:32 Departure - Departure Time of Disposition: 11:55 Disposition: Home, Self-Care 01 Condition: Good Clinical Impression: Mixed anxiety and depressive disorder, Peptic reflux disease, Hypomagnesemia, Hypercalcemia Urolithiasis Qualifiers: Urinary calculus location: ureter Qualified Code(s): N20.1 - Calculus of ureter Osteoarthritis Qualifiers: Osteoarthritis location: multiple joints Osteoarthritis type: primary Qualified Code(s): M89.49 - Other hypertrophic osteoarthropathy, multiple sites Hypertension Qualifiers: Hypertension type: essential hypertension Qualified Code(s): I10 - Essential (primary) hypertension - Discharge Information *PRESCRIPTION DRUG MONITORING PROGRAM REVIEWED*: Not Applicable *COPY OF PRESCRIPTION DRUG MONITORING REPORT IN PATIENT RUPERTO: Not Applicable Instructions: Kidney Stones, [id number] Forms: ED Department Discharge Additional Instructions: 1. Followup with your regular provider in as directed with recommended CBC, comprehensive metabolic panel, amylase, lipase, and renal ultrasound. Bring these discharge instructions with you to that visit. 2. Tylenol 650 mg by mouth every 4 hours and/or OTC ibuprofen 2-3 tabs by mouth every 6 hours with food as directed./needed. You may stagger these medications for 48-72 hours only, which essentially means that you are receiving a pain medication about every 2 hours. Next dose of ibuprofen in about 5 hours as needed secondary to medications given in the emergency room 3. Strain all urine and bring stone to your regular provider or this facility as directed for further stone analysis. 4. Sedation precautions with no driving, etc. for 18 hours because of emergency room medications. 5. Work excuse- See Form 6. Immediately after this visit verify that your cellular telephone's voicemail has been activated and is empty. Also verify that your home telephone's answering machine is operating properly and has space to receive messages. Note that it is sometimes necessary for us to be able to contact you at a later date to discuss your medical care. 7. Please remember that we are ALWAYS here for you and want to answer any questions you may have. Feel free to call the hospital any time and we call you back [facility]RS[facility]. Sepsis Event Note (ED) - Focused Exam Vital Signs: Vital Signs Temp Pulse Resp BP Pulse Ox 09/16/20 11:28 64 16 139/82 95 09/16/20 11:15 72 16 94 L 09/16/20 10:45 67 16 145/86 H 99 09/16/20 10:30 67 18 140/85 99 09/16/20 10:15 71 16 136/86 98 09/16/20 10:00 73 18 127/86 98 09/16/20 09:45 73 18 150/85 H 100 09/16/20 09:10 37.1 C 80 18 142/105 H 100 - Problem List & Annotations (1) Urolithiasis SNOMED Code(s): 26279294 Code(s): N20.9 - URINARY CALCULUS, UNSPECIFIED Status: Acute Priority: High Onset Date: 09/16/20 Annotation/Comment:: Note CT of the abdomen pelvis results as above with additional evidence of moderate bilateral nephrolithiasis. Previous spontaneously passed left-sided kidney stone, however the stone was not collected for analysis at that time. Aggressive pain management required during his emergency room care with overall good results. No indication for antibiotic therapy with urine specimen set up for culture and sensitivity and hematuria secondary to his urolithiasis. The patient should be able to pass his stone spontaneously. Collection of the stone was strongly encouraged with dietary changes depending on this analysis. His uric acid level is normal today, however note some mild hypercalcemia as below. Close follow- up by regular provider as per discharge instructions, including recommended blood work, renal ultrasound, etc. His did drive him home. Sedation, etc. precautions were given. Qualifiers: Urinary calculus location: ureter Qualified Code(s): N20.1 - Calculus of ureter (2) Hypertension SNOMED Code(s): 18794631 Code(s): I10 - ESSENTIAL (PRIMARY) HYPERTENSION Status: Acute Priority: Medium Annotation/Comment:: Blood pressure somewhat elevated in the emergency room today likely secondary to his current discomfort. Continue to watch closely by his regular provider. Qualifiers: Hypertension type: essential hypertension Qualified Code(s): I10 - Essential (primary) hypertension (3) Mixed anxiety and depressive disorder SNOMED Code(s): 403572078 Code(s): F41.8 - OTHER SPECIFIED ANXIETY DISORDERS Status: Chronic Priority: Medium Annotation/Comment:: Stable by patient history. Continue to observe closely through his regular provider. (4) Diabetes mellitus SNOMED Code(s): 47453239 Code(s): E11.9 - TYPE 2 DIABETES MELLITUS WITHOUT COMPLICATIONS Status: Chronic Priority: Medium Annotation/Comment:: Stable by history with continued close observation by his regular provider. Qualifiers: Diabetes mellitus type: type 2 Diabetes mellitus complication status: with ophthalmic complications Diabetes mellitus complication detail: with diabetic retinopathy Diabetic retinopathy severity: with mild nonproliferative retinopathy Diabetes mellitus macular edema: macular edema presence unspecified Laterality: unspecified laterality (5) Osteoarthritis SNOMED Code(s): 438900251 Code(s): M19.90 - UNSPECIFIED OSTEOARTHRITIS, UNSPECIFIED SITE Status: Chronic Priority: Medium Annotation/Comment:: Stable by patient history Qualifiers: Osteoarthritis location: multiple joints Osteoarthritis type: primary Qualified Code(s): M89.49 - Other hypertrophic osteoarthropathy, multiple sites (6) Peptic reflux disease SNOMED Code(s): 617721619 Code(s): K21.9 - GASTRO-ESOPHAGEAL REFLUX DISEASE WITHOUT ESOPHAGITIS Status: Chronic Priority: Medium Annotation/Comment:: Stable by history with current medical therapy. High-dose IV Pepcid and IV Protonix given as GI prophylaxis. Mild nonspecific amylase elevation with normal lipase and no evidence of pancreatitis. Observe for now. Close follow-up by regular provider. (7) Hypercalcemia SNOMED Code(s): 70732680 Code(s): E83.52 - HYPERCALCEMIA Status: Acute Priority: High Onset Date: 09/16/20 Annotation/Comment:: Previous history of hypocalcemia. Observe for now. 1 L bolus of IV Lopressor given in the emergency room. (8) Hypomagnesemia SNOMED Code(s): 502484597 Code(s): E83.42 - HYPOMAGNESEMIA Status: Acute Priority: Medium Onset Date: 09/16/20 Annotation/Comment:: Patient has been compliant with his magnesium supplementation. No change for now secondary to his current colic. Close follow-up by his regular provider. - Problem List Review Problem List Initiated/Reviewed/Updated: Yes - My Orders Last 24 Hours: My Active Orders 09/16/20 Breakfast Nothing Per Oral Diet [DIET] 09/16/20 09:11 Peripheral IV Care [RC] . DIRECTED Sodium Chloride 0.9% [Saline Flush] 10 ml FLUSH ASDIRECTED PRN Obtain Past Medical Record [OM.PC] Urgent Peripheral IV Insertion Adult [OM.PC] Stat Resuscitation Status Stat 09/16/20 09:20 CULTURE URINE [RM] Stat 09/16/20 09:26 Abdomen Pelvis wo Cont [CT] Stat - Assessment/Plan Last 24 Hours: My Active Orders 09/16/20 Breakfast Nothing Per Oral Diet [DIET] 09/16/20 09:11 Peripheral IV Care [RC] . DIRECTED Sodium Chloride 0.9% [Saline Flush] 10 ml FLUSH ASDIRECTED PRN Obtain Past Medical Record [OM.PC] Urgent Peripheral IV Insertion Adult [OM.PC] Stat Resuscitation Status Stat 09/16/20 09:20 CULTURE URINE [RM] Stat 09/16/20 09:26 Abdomen Pelvis wo Cont [CT] Stat Assessment:: As above Plan: As above. Extensive precautions were given to the patient and his , who are in agreement with the treatment plan. See Patient Instructions for further treatment and plan.
[2020-09-16] MEDS ORDERED: Ketorolac 30 MG/ML SDV IVPUSH ONE (09:12)
[2020-09-16] MEDS ORDERED: Tamsulosin 0.4 MG Cap.ER PO ONE (09:15)
[2020-09-16] MEDS ORDERED: HYDROmorphone 0.5 MG/0.5 ML Syringe IVPUSH ONE ×2 (09:24→10:45)
[2020-09-16] MEDS ORDERED: LORazepam 2 MG/ML SDV IVPUSH ONE (09:25)
[2020-09-16 09:40] LABS: PTT,PARTIAL THROMBOPLSTIN TIME 25.2 SEC (24.5-32.8)
[2020-09-16 09:47] LABS: CHLORIDE,CL 103 mmol/L (98-107); SODIUM,NA 139 mmol/L (136-145)
[2020-09-16 11:29] VITALS: BP 139/82; PULSE 64
== END 2020-09-16 11:55 | disposition home or self-care (01) ==
LOC: LL.ED 09:06
DX: N13.2 Hydronephrosis with renal and ureteral calculous obstruction (principal); M89.49 Other hypertrophic osteoarthropathy, multiple sites; I10 Essential (primary) hypertension; K21.9 Gastro-esophageal reflux disease without esophagitis; F41.8 Other specified anxiety disorders; E83.42 Hypomagnesemia; E83.51 Hypocalcemia; E11.319 Type 2 diabetes mellitus with unspecified diabetic retinopathy without macular edema; Z88.8 Allergy status to other drugs, medicaments and biological substances; Z79.84 Long term (current) use of oral hypoglycemic drugs; Z90.49 Acquired absence of other specified parts of digestive tract
CPT/HCPCS: 36415; 74176; 80053; 81001; 82150; 83605; 83690; 83735; 84550; 85025; 85610; 85730; 87086; 96361; 96374; 96375; 96376; 99284-25; A9270-GY; C9113; J1170; J1885; J2060; J2405; J3490; J7120

== ENCOUNTER 2020-09-17 17:17 | Observation (INO) | payer OTHER ==
[2020-09-17] MEDS ORDERED: Tamsulosin 0.4 MG Cap.ER PO ONE (17:24)
[2020-09-17] MEDS ORDERED: Ketorolac 30 MG/ML SDV IVPUSH ONE (17:24)
[2020-09-17] MEDS ORDERED: Ondansetron 4 MG/2 ML SDV IVPUSH ONE (17:24)
[2020-09-17] MEDS ORDERED: Sodium Chloride 0.9% 1,000 ML IV ONE ×2 (17:25→19:21)
[2020-09-17] MEDS ORDERED: HYDROmorphone 0.5 MG/0.5 ML Syringe ONE (17:35)
[2020-09-17] MEDS ORDERED: HYDROmorphone 0.5 MG/0.5 ML Syringe IVPUSH ONE (17:37)
[2020-09-17] MEDS ORDERED: LORazepam 2 MG/ML SDV IVPUSH ONE (17:39)
[2020-09-17] MEDS: HYDROmorphone 0.5 MG/0.5 ML Syringe IVPUSH ONE ×3 (18:05→20:09)
[2020-09-17] MEDS: HYDROmorphone 1 MG/ML Syringe ONE ×3 (18:05→20:09)
[2020-09-17] MEDS ORDERED: fentaNYL 100 MCG/2 ML SDV IVPUSH ONE (18:29)
--- NOTE | 2020-09-17 18:29 | EDM.PDOC ---
ED HPI GENERAL MEDICAL PROBLEM - General Chief Complaint: General Stated Complaint: right flank and groin pain Time Seen by Provider: 09/17/20 17:21 Source of Information: Reports: Patient History Limitations: Reports: No Limitations - History of Present Illness INITIAL COMMENTS - FREE TEXT/NARRATIVE: Patient returns to ER after being seen for what was determined to be pain from 4mm stone near right UVJ by CT scan yesterday. Was discharged from ER yesterday and continued to feel much better throughout rest of day and overnight. Pain redeveloped this afternoon. Ibuprofen/Tylenol not helpful. No emesis. No fevers. Pain is in right flank/low back. Has not urinated since earlier today. - Related Data Allergies Allergy/AdvReac Type Severity Reaction Status Date / Time gluten Allergy Rash Verified 09/17/20 17:18 sumatriptan [From Imitrex] Allergy Hypertensio Verified 09/17/20 17:18 n sumatriptan succinate Allergy Hypertensio Verified 09/17/20 17:18 [From Imitrex] n Home Meds: Home Meds lisinopriL [Prinivil] 20 mg PO DAILY 05/10/14 [History] Metoprolol Tartrate 25 mg PO BID 01/22/19 [History] PARoxetine HCl [Paxil] 20 mg PO DAILY 01/22/19 [History] Pramipexole Di-HCl [Pramipexole Dihydrochloride] 0.125 mg PO BEDTIME 01/22/19 [History] clonazePAM [Clonazepam] 0.5 mg PO BEDTIME 01/22/19 [History] metFORMIN HCl [Glucophage] 1,000 mg PO BID 01/22/19 [History] Omeprazole Magnesium [Prilosec Otc] 20 mg PO TID 08/09/19 [History] Cholecalciferol (Vitamin D3) [Vitamin D] 5,000 unit PO DAILY 01/30/20 [History] SitaGLIPtin [Januvia] 100 mg PO DAILY 01/30/20 [History] Cyanocobalamin (Vitamin B12) [Vitamin B12] 1 tab PO DAILY 08/15/20 [History] Magnesium Oxide [Magnesium] 400 mg PO DAILY 09/16/20 [History] Past Medical History HEENT History: Reports: Allergic Rhinitis, Impaired Vision, Other (See Below). Denies: Cataract, Glaucoma, Hard of Hearing, Macular Degeneration, Otitis Media, Retinal Detachment Other HEENT History: Diabetic retinopathy, OTC reading glasses. Cardiovascular History: Reports: High Cholesterol, Hypertension, Other (See Below). Denies: Afib, Arrhythmia, Blood Clots/VTE/DVT, CAD, Cardiomyopathy, Heart Failure, Heart Murmur, NJ, PVD, Syncope Other Cardiovascular History: History of hyperlipidemia with fatty liver by CT scan Respiratory History: Reports: Intubation, Previous, Sleep Apnea, Other (See Below). Denies: Asthma, Bronchitis, Recurrent, COPD, Intubation, Difficult, PE, Pneumonia, Recurrent, Pneumothorax, TB Other Respiratory History: Patient is currently compliant with CPAP with previous history of noncompliance. Gastrointestinal History: Reports: Cholelithiasis, Fatty Liver, GERD, Hiatal Hernia, PUD. Denies: Celiac Disease, Chronic Constipation, Chronic Diarrhea, Colon Polyp, Diverticulosis, Fecal Incontinence, GI Bleed, Hepatitis, Inflammatory Bowel Disease, Irritable Bowel Syndrome, Jaundice Other Gastrointestinal History: Note history of Monica fundoplication and cholecystectomy as below Genitourinary History: Reports: BPH, Prostate Disorder, Renal Calculus, Other ( See Below). Denies: Acute Renal Failure, Chronic Renal Insuffiency, STD, Urinary Incontinence, UTI, Recurrent Other Genitourinary History: Bilateral moderate nephrolithiasis by CT scan with left-sided urolithiasis in March 2020 with spontaneous passage. Musculoskeletal History: Reports: Arthritis, Back Pain, Chronic, Neck Pain, Chronic, Osteoarthritis, Other (See Below). Denies: Amputation, Fracture, Osteoporosis, RA, SLE Other Musculoskeletal History: Positive BETHANIE in July 2016 Neurological History: Reports: Headaches, Chronic, Head Trauma, Migraines, Other (See Below). Denies: Alzheimers Disease, Cerebral Aneurysms, Concussion, CVA, MS, Neuropathy, Peripheral, Parkinson's, Seizure, TIA Other Neuro History: Refractory recurrent migraine/tension headaches, head contusion without concussion on 04/25/16 Psychiatric History: Reports: Addiction, Anxiety, Depression, Other (See Below). Denies: Abuse, Victim of, ADD, ADHD, Psych Hospitalization(s), PTSD, Suicide Attempt, Suicidal Ideation Other Psychiatric History: History of previous chronic narcotic use. Endocrine/Metabolic History: Reports: Diabetes, Type II, Other (See Below). Denies: Diabetes, Gestational, Diabetes, Type I, Diabetes Mellitus, Type 3c, Hypothyroidism, IDDM, Obesity/BMI 30+ Other Endocrine/Metabolic History: Hypocalcemia. Hematologic History: Reports: Blood Transfusion(s), Other (See Below). Denies: Anemia, Iron Deficiency Other Hematologic History: Blood transfusions at time of Monica fundoplication Immunologic History: Reports: Other (See Below). Denies: AIDS, HIV, SLE Other Immunologic History: Note previous negative workup for positive BETHANIE Oncologic (Cancer) History: Reports: None. Denies: Basal Cell Carcinoma, Bladder, Colon, Hodgkin's Lymphoma, Leukemia, Lymphoma, Malignant Melanoma, Non- Hodgkin's Lymphoma, Prostate, Squamous Cell Carcinoma Dermatologic History: Reports: Eczema, Venous Stasis Dermatitis Other Dermatologic History: Venous stasis dermatitis - Infectious Disease History Infectious Disease History: Reports: Chicken Pox. Denies: C-Difficile, Measles, Meningitis, Mononucleosis, MRSA, Mumps, Pertussis (Whooping Cough), Rheumatic Fever, Rubella, Scarlet Fever, Shingles, TB, VRE - Past Surgical History Head Surgeries/Procedures: Reports: None HEENT Surgical History: Reports: None, Oral Surgery, Other (See Below). Denies: Adenoidectomy, Eye Surgery, Laser Surgery, LASIK, Myringotomy w Tube(s), Naso- Sinus Surgery, Tonsillectomy Other HEENT Surgeries/Procedures: Previous tooth extractions. Cardiovascular Surgical History: Reports: None. Denies: Varicose Respiratory Surgical History: Reports: None. Denies: Thoracentesis GI Surgical History: Reports: Appendectomy, Cholecystectomy, Colonoscopy, EGD, Hernia, Inguinal, Monica Fundoplication, Other (See Below). Denies: Hernia Repair/Other, Polypectomy Other GI Surgeries/Procedures: Monica fundoplication in September 2009. Appendectomy in 1990. Laparoscopic cholecystectomy with concomitant liver biopsy on 08/08/19. Last EGD on 07/26/2020 with negative work-up for foreign body with previous EGD and colonoscopy on 08/18/19 and additional previous EGD on 03/23/17, 2009 and in 2007. Previous colonoscopy in about 2012. Right inguinal hernia repair in 1988. Male Surgical History: Reports: Circumcision, Vasectomy, Other (See Below) Other Male Surgeries/Procedures: Circumcision as an . Vasectomy in about 1995. Endocrine Surgical History: Reports: None. Denies: Thyroid Biopsy Neurological Surgical History: Reports: None. Denies: C-Spine, Discectomy, Laminectomy, Lumbar Spine, Sacral Spine, Spinal Fusion, Thoracic Spine, Vertebroplasty Musculoskeletal Surgical History: Reports: Arthroscopic Knee, Arthroscopic Procedure, Shoulder Surgery, Other (See Below). Denies: Carpal Tunnel, Ganglion Cyst, Joint Replacement, ORIF Other Musculoskeletal Surgeries/Procedures:: Right-sided arthroscopic meniscal repair in 1986. Right laparoscopic shoulder surgery in October 2016. Oncologic Surgical History: Reports: None Dermatological Surgical History: Reports: None - Past Imaging History Past Imaging History: Reports: Angiography ([facility] in February 2015.), CAT Scan (CT of the chest on 08/15/2020 with CTA of the chest on 03/21/[address]. [address] of the brain on 04/25/16 with multiple previous evaluations by history. CT of the abdomen and pelvis in March 2020 and on 04/21/11 and 07/30/07.), HIDA Scan (07/29/07), MRI (Negative MRI of the brain on 03/25/2020 with previous evaluations on 03/25/2020 and 09/27/2007.), Stress Testing (Cardiac stress test of unknown type at [facility] in February 2015.), Ultrasound (Gallbladder ultrasound on 07/26/17.), Upper GI X-Ray/Series (Upper GI with swallowing study on 02/25/12.), Venous Doppler (Left leg on 04/05/06.), Other (See Below) (EMG and nerve conduction studies in July 2016. Esophageal motility evaluation on 05/19/12.) Social & Family History - Family History HEENT: Reports: Impaired Vision, Other (See Below). Denies: Glaucoma, Macular Degeneration, Retinal Detachment Other HEENT Family History: Brother with IDDM and secondary diabetic retinopathy. Cardiac: Reports: CAD, Heart Murmur, NJ, Stent, Syncope, Other (See Below). Denies: Afib, Aneurysm, Arrhythmia, Blood Clots/VTE/DVT, Bypass, Heart Failure, High Cholesterol, Hypertension, Pacemaker Other Cardiac Family History: History of early heart attacks in family, including brother in his 50s another brother in his 60s with brother also having a valve disorder with secondary syncopal episodes, which did require valve replacement at age 62. Both brothers did have PTCA/stents. Father with initial NJ at age 50 with subsequent multiple MIs with no further procedures done however fatal NJ at age 60. Respiratory: Reports: None. Denies: Asthma, COPD, PE, Pneumothorax, Sleep Apnea GI: Reports: None. Denies: Celiac Disease, Cholelithiasis, Colon Polyps, GERD, GI bleed, Hepatitis, Inflammatory Bowel Disease, Irritable Bowel Syndrome, PUD : Reports: Dialysis, Renal Disease/Insufficiency Other Family History: Brother with IDDM and secondary diabetic nephropathy and current dialysis. OBGYN: Reports: None. Denies: Endometriosis, Recurrent Spontaneous Musculoskeletal: Reports: None. Denies: Arthritis, Gout, Osteoarthritis, RA, SLE Neurological: Reports: Neuropathy, Diabetic, Neuropathy, Peripheral, Parkinson's, Other (See Below). Denies: Alzheimers Disease, Cerebral Aneurysms, CVA, Dementia, Migraines, MS, Seizure, TIA Other Neurological Family History: Brother with diabetic neuropathy. Maternal aunt with Parkinson's disease Psychiatric: Reports: None Endocrine/Metabolic: Reports: Diabetes, type II, IDDM, Other (See Below). Denies: Diabetes, Type I, Diabetes Mellitus, Type 3c, Hypothyroidism Other Endocrine/Metabolic Family History: Brother with IDDM and secondary complications as above. Hematologic: Reports: None. Denies: Anemia, SLE Immunologic: Reports: None. Denies: AIDS, HIV, SLE Dermatologic: Reports: None. Denies: Eczema, Psoriasis Oncologic: Reports: None. Denies: Bladder, Colon, Esophageal, Hodgkin's Lymphoma, Leukemia, Lymphoma, Non-Hodgkin's Lymphoma, Prostate, Skin - Caffeine Use Caffeine Use: Reports: Coffee, Soda. Denies: Energy Drinks, Tea Caffeine Use Comment: One cup of coffee per day, 2 sodas per day - Living Situation & Occupation Living situation: Reports: (1988, 3 children), with Family () Occupation: Employed (Currently works in [employer] at [employer]. 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 Denies: Nausea, Vomiting : Reports: Flank Pain (right), Other (feels like he needs to urinate but cannot). Denies: Hematuria Musculoskeletal: Reports: No Symptoms Skin: Reports: No Symptoms Neurological: Reports: No Symptoms Psychiatric: Reports: Anxiety ED EXAM, GENERAL - Physical Exam Exam: See Below Exam Limited By: No Limitations General Appearance: Other (patient crying/screaming loudly, moaning at time of arrival) Eye Exam: Bilateral Eye: EOMI, PERRL Ears: Hearing Grossly Normal Nose: No: Nasal Deformity, Nasal Swelling, Nasal Drainage Throat/Mouth: Normal Lips, Normal Voice, No Airway Compromise Head: Atraumatic, Normocephalic Neck: Supple Respiratory/Chest: No Respiratory Distress, Lungs Clear, Normal Breath Sounds, No Accessory Muscle Use, Chest Non-Tender Cardiovascular: Regular Rate, Rhythm, No Murmur GI/Abdominal: Soft, Tender (RLQ). No: Distended, Guarding, Rigid, Rebound (Male) Exam: Other (grossly normal appearance). No: Urethral Discharge Rectal (Males) Exam: Deferred Back Exam: CVA Tenderness (R) Extremities: Normal Range of Motion, Normal Capillary Refill Neurological: Alert, Oriented Psychiatric: Anxious Skin Exam: Warm, Dry, Intact, Normal Color Course - Orders/Labs/Meds Orders: Active Orders 24 hr Category Date Time Status Sodium Chloride 0.9% [Normal Saline] 1,000 ml Med 09/17/20 17:25 Ordered IV .BOLUS Medication Orders Sodium Chloride (Normal Saline) 1,000 mls @ 999 mls/hr IV .BOLUS ONE Stop: 09/17/20 18:25 Meds: Medications Generic Name Dose Route Start Last Admin Trade Name Freq PRN Reason Stop Dose Admin Sodium Chloride 1,000 mls @ 999 mls/hr 09/17/20 17:25 Normal Saline IV 09/17/20 18:25 .BOLUS ONE Discontinued Medications Generic Name Dose Route Start Last Admin Trade Name Freq PRN Reason Stop Dose Admin Hydromorphone HCl 0.5 mg 09/17/20 17:25 Dilaudid IVPUSH 09/17/20 17:26 ONETIME ONE Hydromorphone HCl Confirm 09/17/20 17:35 Dilaudid Administered 09/17/20 17:36 Dose 0.5 mg .ROUTE .STK-MED ONE Hydromorphone HCl Confirm 09/17/20 18:05 Dilaudid Administered 09/17/20 18:06 Dose 1 mg .ROUTE .STK-MED ONE Ketorolac Tromethamine 30 mg 09/17/20 17:24 Toradol IVPUSH 09/17/20 17:25 ONETIME ONE Lorazepam 0.5 mg 09/17/20 17:39 Ativan IVPUSH 09/17/20 17:40 ONETIME ONE Ondansetron HCl 4 mg 09/17/20 17:24 Zofran IVPUSH 09/17/20 17:25 ONETIME ONE Tamsulosin HCl 0.4 mg 09/17/20 17:24 Flomax PO 09/17/20 17:25 ONETIME ONE - Re-Assessments/Exams Free Text/Narrative Re-Assessment/Exam: 09/17/20 18:35 Patient assumed to not have yet passed his 4mm stone found on CT yesterday. Same symptoms as yesterday. No apparent improvement in pain noted even when patient had received two doses of Dilaudid, plus Ativan, and Toradol. Continued to moan. IV NS bolus. Flomax. Lion placed as patient had said he felt like he needed to urinate and could not, and bladder scanner nonfunctional. Small amount more concentrated urine returned. Third dose of Dilaudid given and patient appeared to improve, however still moaning regularly. Additional pain medication avoided at this time to avoid potential respiratory depression. Plan is to admit observation for continued IV fluids and pain management. Departure - Departure Time of Disposition: 18:39 Disposition: Refer to Observation Clinical Impression: Urolithiasis Qualifiers: Urinary calculus location: ureter Qualified Code(s): N20.1 - Calculus of ureter - Discharge Information *PRESCRIPTION DRUG MONITORING PROGRAM REVIEWED*: Not Applicable *COPY OF PRESCRIPTION DRUG MONITORING REPORT IN PATIENT RUPERTO: Not Applicable - Problem List & Annotations (1) Urolithiasis SNOMED Code(s): 57840232 Code(s): N20.9 - URINARY CALCULUS, UNSPECIFIED Status: Acute Priority: High Onset Date: 09/16/20 Annotation/Comment:: 4mm stone near right UVJ noted on yesterday's CT with additional evidence of moderate bilateral nephrolithiasis. Previous spontaneously passed left-sided kidney stone, however the stone was not collected for analysis at that time. Aggressive pain management required during his emergency room care with overall good results. No indication for antibiotic therapy with urine specimen set up for culture and sensitivity and hematuria secondary to his urolithiasis. The patient should be able to pass his stone spontaneously. IV fluid/Flomax started in ER/will be continued on Observation. His uric acid level was normal, however note some mild hypercalcemia. Qualifiers: Urinary calculus location: ureter Qualified Code(s): N20.1 - Calculus of ureter (2) Hypomagnesemia SNOMED Code(s): 824189401 Code(s): E83.42 - HYPOMAGNESEMIA Status: Acute Priority: Medium Onset Date: 09/16/20 Annotation/Comment:: Patient has been compliant with his magnesium supplementation. Will give dose IV Mag as level will become lower secondary to IV fluids. Close follow-up by his regular provider. (3) Mixed anxiety and depressive disorder SNOMED Code(s): 694483791 Code(s): F41.8 - OTHER SPECIFIED ANXIETY DISORDERS Status: Chronic Priority: Medium Annotation/Comment:: Stable by patient history. Continue to observe closely through his regular provider. (4) Diabetes mellitus SNOMED Code(s): 05604378 Code(s): E11.9 - TYPE 2 DIABETES MELLITUS WITHOUT COMPLICATIONS Status: Chronic Priority: Medium Annotation/Comment:: Stable by history with continued close observation by his regular provider. Qualifiers: Diabetes mellitus type: type 2 Diabetes mellitus complication status: with ophthalmic complications Diabetes mellitus complication detail: with diabetic retinopathy Diabetic retinopathy severity: with mild nonproliferative retinopathy Diabetes mellitus macular edema: macular edema presence unspecified Laterality: unspecified laterality (5) Osteoarthritis SNOMED Code(s): 753309075 Code(s): M19.90 - UNSPECIFIED OSTEOARTHRITIS, UNSPECIFIED SITE Status: Chronic Priority: Medium Annotation/Comment:: Stable by patient history Qualifiers: Osteoarthritis location: multiple joints Osteoarthritis type: primary Qualified Code(s): M89.49 - Other hypertrophic osteoarthropathy, multiple sites (6) Hypertension SNOMED Code(s): 82143133 Code(s): I10 - ESSENTIAL (PRIMARY) HYPERTENSION Status: Acute Priority: Medium Annotation/Comment:: observe trends Qualifiers: Hypertension type: essential hypertension Qualified Code(s): I10 - Essential (primary) hypertension (7) Sleep apnea SNOMED Code(s): 16674895 Code(s): G47.30 - SLEEP APNEA, UNSPECIFIED Status: Acute Priority: Medium Annotation/Comment:: Patient is now compliant with his CPAP with previous problems with noncompliance. Qualifiers: Sleep apnea type: unspecified type Qualified Code(s): G47.30 - Sleep apnea, unspecified (8) Peptic reflux disease SNOMED Code(s): 672548902 Code(s): K21.9 - GASTRO-ESOPHAGEAL REFLUX DISEASE WITHOUT ESOPHAGITIS Status: Chronic Priority: Medium Annotation/Comment:: Stable by history with current medical therapy. Observe for now. Close follow-up by regular provider. (9) Hypothyroidism (acquired) SNOMED Code(s): 083649672 Code(s): E03.9 - HYPOTHYROIDISM, UNSPECIFIED Status: Acute Priority: Medium Onset Date: 08/15/20 Annotation/Comment:: Possible beginning hypothyroidism with mildly elevated TSH. Observe for now with consideration of repeat TSH in about 4 weeks by his regular provider. - Problem List Review Problem List Initiated/Reviewed/Updated: Yes - My Orders Last 24 Hours: My Active Orders 09/17/20 17:25 Sodium Chloride 0.9% [Normal Saline] 1,000 ml IV .BOLUS - Assessment/Plan Admission H&P: Please use this note as an admission H&P Last 24 Hours: My Active Orders 09/17/20 17:25 Sodium Chloride 0.9% [Normal Saline] 1,000 ml IV .BOLUS Assessment:: as above Plan: Continue IV fluids/Flomax/pain management with goal of promoting passage of stone. Anticipate discharge tomorrow or following day depending on patient's clinical course
[2020-09-17] MEDS: Phenazopyridine 95 MG Tab PO SCH (18:49)
[2020-09-17] MEDS ORDERED: Ketorolac 30 MG/ML SDV IVPUSH SCH (19:45)
[2020-09-17] MEDS: HYDROmorphone 0.5 MG/0.5 ML Syringe IVPUSH PRN (20:10)
[2020-09-17] MEDS: Ketorolac 30 MG/ML SDV IVPUSH SCH (22:59)
[2020-09-17] MEDS ORDERED: Sodium Chloride 0.9% 1,000 ML IV SCH (23:00)
[2020-09-18] MEDS: Sodium Chloride 0.9% 10 ML Syringe FLUSH PRN ×8 (02:03→19:40)
[2020-09-18] MEDS: HYDROmorphone 0.5 MG/0.5 ML Syringe IVPUSH PRN ×4 (02:03→19:39)
[2020-09-18] MEDS: Ondansetron 4 MG/2 ML SDV IVPUSH PRN ×2 (02:10→15:54)
[2020-09-18] MEDS ORDERED: Tamsulosin 0.4 MG Cap.ER PO ONE (06:00)
[2020-09-18] MEDS: Ketorolac 30 MG/ML SDV IVPUSH SCH (06:21)
[2020-09-18 07:37] LABS: CHLORIDE,CL 105 mmol/L (98-107); SODIUM,NA 138 mmol/L (136-145)
[2020-09-18] MEDS: Metoprolol Tartrate 25 MG Tab PO SCH ×2 (08:19→18:03)
[2020-09-18] MEDS: metFORMIN 500 MG Tab PO SCH ×2 (08:19→18:02)
[2020-09-18] MEDS: PARoxetine 20 MG Tab PO SCH (08:19)
[2020-09-18] MEDS: Lisinopril 20 MG Tab PO SCH (08:19)
[2020-09-18] MEDS: Phenazopyridine 95 MG Tab PO SCH ×3 (08:26→18:03)
[2020-09-18] MEDS: Acetaminophen 325 MG Tab PO PRN ×2 (08:28→13:46)
--- NOTE | 2020-09-18 09:41 | PCM.PN ---
- General Info Date of Service: 09/18/20 Admission Dx/Problem (Free Text): Right-sided urolithiasis with refractory colic Functional Status: Reports: Pain Controlled, Tolerating Diet, Ambulating, Urinating (Lion catheter present), New Symptoms (Mild headache today). Denies: Incentive Spirometry Pain Score: 6 (Bilateral frontal headache and right-sided nonspecific right lower quadrant abdominal pain) - Review of Systems General: Reports: No Symptoms. Denies: Fever, Weakness, Fatigue, Malaise, Chills, Night Sweats, Appetite (Adequate) HEENT: Reports: Headaches. Denies: Dysphasia, Ear Pain, Eye Pain, Post Nasal Drip, Sinus Congestion, Sore Throat, Rhinitis, Visual Changes Pulmonary: Reports: No Symptoms. Denies: Shortness of Breath, Pleuritic Chest Pain, Cough, Sputum, Hemoptysis, Wheezing Cardiovascular: Reports: No Symptoms. Denies: Chest Pain, Palpitations, Dyspnea on Exertion, Orthopnea, PND, Edema, Lightheadedness Gastrointestinal: Reports: Abdominal Pain (No colic since early this morning). Denies: Constipation (No bowel movement since admission), Decreased Appetite, Diarrhea, Difficulty Swallowing, Flatus, Hematochezia, Melena, Nausea, Vomiting Genitourinary: Reports: Other (Lion present). Denies: Dysuria, Frequency, Burning, Pain, Urgency, Incontinence, Hematuria, Retention, Flank Pain Musculoskeletal: Reports: No Symptoms. Denies: Neck Pain, Shoulder Pain, Arm Pain, Back Pain, Leg Pain Skin: Reports: No Symptoms. Denies: Diaphoresis, Bruising Neurological: Reports: Headache (Typical of previous chronic headaches). Denies: Confusion, Dizziness, Paresthesia, Seizure, Tingling, Difficulty W alking, Weakness Psychiatric: Reports: Depression (Mild to moderate), Anxiety (Mild). Denies: Confusion, Agitation, Hallucinations - Patient Data Vitals - Most Recent: Last Vital Signs Temp 36.7 C 09/18/20 08:00 Pulse 68 09/18/20 08:19 Resp 16 09/18/20 08:00 BP 134/70 09/18/20 08:19 Pulse Ox 96 09/18/20 08:00 Vital Signs - 24 hr 09/17/20 09/17/20 09/17/20 17:17 18:39 23:22 Temperature [ 36.4 C 36.6 C 36.2 C Temporal] Pulse, Peripheral Pulse, 75 61 57 L Peripheral [ Right Pulse Oximetry] Respiratory 20 14 16 Rate Blood Pressure Blood Pressure 133/83 161/80 H 137/80 [Right Upper Arm] O2 Sat by Pulse 100 100 99 Oximetry 09/18/20 09/18/20 09/18/20 03:34 08:00 08:19 Temperature [ 36.5 C 36.7 C Temporal] Pulse, 68 Peripheral Pulse, 62 68 Peripheral [ Right Pulse Oximetry] Respiratory 16 16 Rate Blood Pressure 134/70 Blood Pressure 147/64 H 134/70 [Right Upper Arm] O2 Sat by Pulse 99 96 Oximetry Weight - Most Recent: 90.718 kg I&O - Last 24 Hours: Intake & Output 09/17/20 09/18/20 09/18/20 22:59 06:59 14:59 Intake Total 1600 3800 480 Output Total 1400 4400 Balance 200 -600 480 Imaging Impressions - Last 24 Hours: None Lab Results Last 24 Hours: Laboratory Results - last 24 hr 09/18/20 09/18/20 Range/Units 07:10 07:10 WBC 5.1 (4.0-10.2) K/uL RBC 4.43 (4.33-5.41) M/uL Hgb 13.1 (13.1-16.8) g/dL Hct 39.1 (39.0-49.0) % MCV 88.3 (84.0-98.0) fL MCH 29.6 (28.2-33.3) pg MCHC 33.5 (31.7-36.0) g/dL RDW 12.5 (11.2-14.1) % Plt Count 142 L (150-350) K/uL Neut % (Auto) 58.4 (45.0-80.0) % Lymph % (Auto) 27.5 (10.0-50.0) % [place] % (Auto) 8.8 (2.0-14.0) % Eos % (Auto) 4.7 (0.0-5.0) % Baso % (Auto) 0.6 (0.0-2.0) % Neut # (Auto) 2.97 (1.40-7.00) K/uL Lymph # (Auto) 1.40 (0.50-3.50) K/uL [place] # (Auto) 0.45 (0.00-1.00) K/uL Eos # (Auto) 0.24 (0.00-0.50) K/uL Baso # (Auto) 0.03 (0.00-0.20) K/uL Sodium 138 (136-145) mmol/L Potassium 3.6 (3.5-5.1) mmol/L Chloride 105 (98-107) mmol/L Carbon Dioxide 25.0 (21.0-32.0) mmol/L BUN 10 (7-18) mg/dL Creatinine 1.16 (0.51-1.17) mg/dL Est Cr Clr Drug Dosing 80.36 mL/min Estimated GFR (MDRD) > 60 mL/min Glucose 107 H (74-106) mg/dL Calcium 8.7 D (8.5-10.1) mg/dL Magnesium 2.1 (1.8-2.4) mg/dL Total Bilirubin 0.8 (0.2-1.0) mg/dL AST 24 (15-37) U/L ALT 31 (12-78) U/L Alkaline Phosphatase 77 (46-116) IU/L Total Protein 5.6 L (6.4-8.2) g/dL Albumin 3.2 L (3.4-5.0) g/dL Ivan Results Last 24 Hours: Urine culture and sensitivity from 09/16/2020-ER visit showed no growth. Med Orders - Current: Current Medications Acetaminophen (Tylenol) 650 mg PO Q3H PRN PRN Reason: Headache/Pain Last Admin: 09/18/20 08:28 Dose: 650 mg Documented by: Alogliptin Benzoate (Alogliptin) 25 mg PO DAILY [facility] Last Admin: 09/18/20 08:19 Dose: 25 mg Documented by: Famotidine (Pepcid) 20 mg IVPUSH Q12H [facility] Hydromorphone HCl (Dilaudid) 0.5 mg IVPUSH Q1H PRN PRN Reason: Pain (moderate 4-6) Last Admin: 09/18/20 03:27 Dose: 0.5 mg Documented by: Lactated Ringer's (Ringers, Lactated) 1,000 mls @ 100 mls/hr IV ASDIRECTED [facility] Influenza Virus Vaccine (Pharmacy To Dose - Influenza Vaccine) 1 each IM ONETIME ONE Stop: 09/18/20 06:31 Influenza Virus Vaccine (Afluria Quad 2020-21 (3yr Up)) 60 mcg IM .ONCE ONE Stop: 09/18/20 12:01 Ketorolac Tromethamine (Toradol) 15 mg IVPUSH Q6H [facility] Lisinopril (Prinivil) 20 mg PO DAILY [facility] Last Admin: 09/18/20 08:19 Dose: 20 mg Documented by: Magnesium Oxide (Magnesium Oxide) 400 mg PO BID [facility] Metformin HCl (Glucophage) 1,000 mg PO BID [facility] Last Admin: 09/18/20 08:19 Dose: 1,000 mg Documented by: Metoprolol Tartrate (Lopressor) 25 mg PO BID [facility] Last Admin: 09/18/20 08:19 Dose: 25 mg Documented by: Ondansetron HCl (Zofran) 4 mg IVPUSH Q6H PRN PRN Reason: Nausea/Vomiting Last Admin: 09/18/20 02:10 Dose: 4 mg Documented by: Pantoprazole Sodium (Protonix Iv) 40 mg IVPUSH Q12H [facility] Paroxetine HCl (Paxil) 20 mg PO DAILY [facility] Last Admin: 09/18/20 08:19 Dose: 20 mg Documented by: Phenazopyridine HCl (Urinary Pain Relief) 95 mg PO TIDPC [facility] Last Admin: 09/18/20 08:26 Dose: 95 mg Documented by: Pramipexole Dihydrochloride (Mirapex) 0.125 mg PO BEDTIME [facility] Sodium Chloride (Saline Flush) 10 ml FLUSH ASDIRECTED PRN PRN Reason: Keep Vein Open Last Admin: 09/18/20 06:22 Dose: 10 ml Documented by: Discontinued Medications Fentanyl (Sublimaze) 100 mcg IVPUSH ONETIME ONE Stop: 09/17/20 18:30 Last Admin: 09/17/20 21:33 Dose: Not Given Documented by: Hydromorphone HCl (Dilaudid) 0.5 mg IVPUSH ONETIME ONE Stop: 09/17/20 17:26 Last Admin: 09/17/20 19:37 Dose: 0.5 mg Documented by: Hydromorphone HCl (Dilaudid) Confirm Administered Dose 0.5 mg .ROUTE .STK-MED ONE Stop: 09/17/20 17:36 Last Admin: 09/17/20 20:04 Dose: Not Given Documented by: Hydromorphone HCl (Dilaudid) Confirm Administered Dose 1 mg .ROUTE .STK-MED ONE Stop: 09/17/20 18:06 Last Admin: 09/17/20 20:09 Dose: Not Given Documented by: Hydromorphone HCl (Dilaudid) 0.5 mg IVPUSH ONETIME ONE Stop: 09/17/20 17:38 Last Admin: 09/17/20 20:04 Dose: Not Given Documented by: Hydromorphone HCl (Dilaudid) 1 mg IVPUSH ONETIME ONE Stop: 09/17/20 18:06 Last Admin: 09/17/20 20:09 Dose: Not Given Documented by: Sodium Chloride (Normal Saline) 1,000 mls @ 999 mls/hr IV .BOLUS ONE Stop: 09/17/20 18:25 Last Admin: 09/17/20 19:39 Dose: 999 mls/hr Documented by: Sodium Chloride (Normal Saline) 1,000 mls @ 500 mls/hr IV .BOLUS ONE Stop: 09/17/20 21:20 Last Admin: 09/17/20 19:40 Dose: 500 mls/hr Documented by: Magnesium Sulfate/Dextrose 1 (gm/ Premix) 100 mls @ 100 mls/hr IV ONETIME ONE Stop: 09/17/20 22:59 Last Admin: 09/17/20 22:59 Dose: 100 mls/hr Documented by: Sodium Chloride (Normal Saline) 1,000 mls @ 150 mls/hr IV ASDIRECTED [facility] Last Admin: 09/17/20 21:00 Dose: 150 mls/hr Documented by: Ketorolac Tromethamine (Toradol) 30 mg IVPUSH ONETIME ONE Stop: 09/17/20 17:25 Last Admin: 09/17/20 19:36 Dose: 30 mg Documented by: Ketorolac Tromethamine (Toradol) 30 mg IVPUSH Q6H [facility] Stop: 09/22/20 19:46 Last Admin: 09/17/20 21:33 Dose: Not Given Documented by: Ketorolac Tromethamine (Toradol) 30 mg IVPUSH Q6H [facility] Last Admin: 09/18/20 06:21 Dose: 30 mg Documented by: Lorazepam (Ativan) 0.5 mg IVPUSH ONETIME ONE Stop: 09/17/20 17:40 Last Admin: 09/17/20 19:38 Dose: 0.5 mg Documented by: Ondansetron HCl (Zofran) 4 mg IVPUSH ONETIME ONE Stop: 09/17/20 17:25 Last Admin: 09/17/20 19:37 Dose: 4 mg Documented by: Tamsulosin HCl (Flomax) 0.4 mg PO ONETIME ONE Stop: 09/17/20 17:25 Last Admin: 09/17/20 18:49 Dose: 0.4 mg Documented by: Tamsulosin HCl (Flomax) 0.4 mg PO ONETIME ONE Stop: 09/18/20 06:01 Last Admin: 09/18/20 06:22 Dose: 0.4 mg Documented by: - Exam Quality Assessment: DVT Prophylaxis. No: Supplemental Oxygen, Central Line/PICC, Urine Catheter, Skin Breakdown, Restraints General: Alert, Oriented, Cooperative, No Acute Distress HEENT: Pupils Equal, Pupils Reactive, EOMI, Mucous Membr. Moist/[place]. No: Scleral Icterus Neck: Supple, No JVD, No Thyromegaly, +2 Carotid Pulse wo Bruit. No: Lymphadenopathy Lungs: Clear to Auscultation, Normal Respiratory Effort. No: Rub Cardiovascular: Regular Rate, Regular Rhythm, No Murmurs. No: Gallops, Rubs GI/Abdominal Exam: Normal Bowel Sounds, No Organomegaly, No Distention, No Abnormal Bruit, No Mass, Tender (Mild right lower quadrant palpation pain). No: Guarding, Rigid, Rebound (Male) Exam: Deferred Back Exam: Normal Inspection, Full Range of Motion. No: CVA Tenderness (L), CVA Tenderness (R), Muscle Spasm Extremities: Normal Inspection, Normal Range of Motion, Non-Tender, No Pedal Edema, Normal Capillary Refill. No: Ashlyn's Sign Peripheral Pulses: 2+: Radial (L), Radial (R), Dorsalis Pedis (L), Dorsalis Pedis (R) Skin: Warm, Dry, Intact. No: Ecchymosis Neurological: No New Focal Deficit Psy/Mental Status: Anxious (Mild), Depressed (Mild to moderate). No: Agitated, Hallucinations, Withdrawal Symptoms Sepsis Event Note - Evaluation Sepsis Screening Result: No Definite Risk - Focused Exam Vital Signs: Vital Signs Temp Pulse Pulse Resp BP BP Pulse Ox 09/18/20 08:19 68 134/70 09/18/20 08:00 36.7 C 68 16 134/70 96 09/18/20 03:34 36.5 C 62 16 147/64 H 99 09/17/20 23:22 36.2 C 57 L 16 137/80 99 - Problem List & Annotations (1) Urolithiasis SNOMED Code(s): 48787910 Code(s): N20.9 - URINARY CALCULUS, UNSPECIFIED Status: Chronic Priority: High Current Visit: Yes Onset Date: 09/16/20 Qualifiers: Urinary calculus location: ureter Qualified Code(s): N20.1 - Calculus of ureter Annotation/Comment:: 4mm stone near right UVJ and mild right-sided hydronephrosis noted on CT on 09/16/2020 with ER evaluation in this facility at that time. Additional evidence of moderate bilateral nephrolithiasis. Previous spontaneously passed left-sided kidney stone, however the stone was not collected for analysis at that time. Aggressive pain management required during this hospitalization and during his previous emergency room care with overall good results. No indication for antibiotic therapy with urine culture and sensitivity negative for a UTI on 09/16/2020. The patient should be able to pass his stone spontaneously with urology consultation as needed. IV fluids/Flomax started once again shortly after placement in observation status. His uric acid level was normal on 09/16/2020, however note some mild hypercalcemia. (2) Diabetes mellitus SNOMED Code(s): 22379555 Code(s): E11.9 - TYPE 2 DIABETES MELLITUS WITHOUT COMPLICATIONS Status: Chronic Priority: Medium Current Visit: Yes Qualifiers: Diabetes mellitus type: type 2 Diabetes mellitus complication status: with ophthalmic complications Diabetes mellitus complication detail: with diabetic retinopathy Diabetic retinopathy severity: with mild nonproliferative retinopathy Diabetes mellitus macular edema: macular edema presence unspecified Laterality: unspecified laterality Annotation/Comment:: Patient will be changed to a diabetic heart healthy diet today and kept n.p.o. for planned renal ultrasound tomorrow. Otherwise, stable by history with continued close observation by his regular provider. (3) Hypertension SNOMED Code(s): 63275487 Code(s): I10 - ESSENTIAL (PRIMARY) HYPERTENSION Status: Chronic Priority: Medium Current Visit: Yes Qualifiers: Hypertension type: essential hypertension Qualified Code(s): I10 - Essential (primary) hypertension Annotation/Comment:: Overall good control during this hospitalization. Occa sional mildly elevated blood pressure secondary to discomfort. Patient tolerating additional Flomax therapy well for his urolithiasis, although this will not be prescribed at discharge, if he has passed the stone. (4) Hypomagnesemia SNOMED Code(s): 172630640 Code(s): E83.42 - HYPOMAGNESEMIA Status: Chronic Priority: Medium Current Visit: Yes Onset Date: 09/16/20 Annotation/Comment:: Patient has been compliant with his magnesium supplementation, however persistent hypomagnesemia during her emergency room visit on 09/16/2020. 1 dose of IV magnesium sulfate given shortly after admission with reinitiation of oral magnesium oxide on 09/18. Close follow-up by his regular provider. (5) Mixed anxiety and depressive disorder SNOMED Code(s): 652013231 Code(s): F41.8 - OTHER SPECIFIED ANXIETY DISORDERS Status: Chronic Priority: Medium Current Visit: Yes Annotation/Comment:: Moderate control during this hospitalization. Note chronic mixed migraine and tension headaches, including on 09/18 with IV Toradol and Dilaudid therapy ineffective for his urolithiasis. Continue to observe closely through his regular provider. (6) Osteoarthritis SNOMED Code(s): 249830206 Code(s): M19.90 - UNSPECIFIED OSTEOARTHRITIS, UNSPECIFIED SITE Status: Chronic Priority: Medium Current Visit: Yes Qualifiers: Osteoarthritis location: multiple joints Osteoarthritis type: primary Qualified Code(s): M89.49 - Other hypertrophic osteoarthropathy, multiple sites Annotation/Comment:: Stable by patient history and during this hospitalization. (7) Peptic reflux disease SNOMED Code(s): 120880894 Code(s): K21.9 - GASTRO-ESOPHAGEAL REFLUX DISEASE WITHOUT ESOPHAGITIS Status: Chronic Priority: Medium Current Visit: Yes Annotation/Comment:: IV Pepcid and IV Protonix initiated secondary to recorded IV Toradol therapy. Otherwise previously stable by history with previous medical therapy. (8) Sleep apnea SNOMED Code(s): 58390547 Code(s): G47.30 - SLEEP APNEA, UNSPECIFIED Status: Chronic Priority: Medium Current Visit: Yes Qualifiers: Sleep apnea type: unspecified type Qualified Code(s): G47.30 - Sleep apnea, unspecified Annotation/Comment:: Patient will get his CPAP machine from home and use during this hospitalization. Patient is now compliant with his CPAP with previous problems with noncompliance. (9) Hypercalcemia SNOMED Code(s): 56075868 Code(s): E83.52 - HYPERCALCEMIA Status: Acute Priority: High Current Visit: Yes Onset Date: 09/16/20 Annotation/Comment:: As above (10) Hypothyroidism (acquired) SNOMED Code(s): 632359321 Code(s): E03.9 - HYPOTHYROIDISM, UNSPECIFIED Status: Acute Priority: Medium Current Visit: Yes Onset Date: 08/15/20 Annotation/Comment:: Possible beginning hypothyroidism with mildly elevated TSH on 08/15/2020. Repeat TSH on 09/19. (11) Frequent headaches SNOMED Code(s): 470343071 Code(s): R51 - HEADACHE * DO NOT USE * Status: Chronic Priority: Medium Current Visit: Yes Annotation/Comment:: As above. Strong anxiety component. (12) Hypoalbuminemia SNOMED Code(s): 179595654 Code(s): E88.09 - OTH DISORDERS OF PLASMA-PROTEIN METABOLISM, NEC Status: Acute Priority: Medium Current Visit: Yes Onset Date: ~09/18/20 Annotation/Comment:: Observe for now. - Problem List Review Problem List Initiated/Reviewed/Updated: Yes - My Orders Last 24 Hours: My Active Orders 09/18/20 09:30 Famotidine [Pepcid] 20 mg IVPUSH Q12H Ketorolac [Toradol] 15 mg IVPUSH Q6H Lactated Ringers @ 100 MLS/HR(1,000ml) Lactated Ringers [Ringers, Lactated] 1,000 ml IV ASDIRECTED Pantoprazole [ProTONIX IV] 40 mg IVPUSH Q12H 09/18/20 09:45 Magnesium Oxide 400 mg PO BID 09/18/20 Lunch ADA Diabetic [[place] [employer] Diet] [DIET] 09/18/20 12:00 FLU Vacc [id number] 36MOS UP/PF [Afluria Quad 2019- (3YR UP)] 60 mcg IM .ONCE ONE 09/18/20 Dinner Nothing per Oral Now Diet [DIET] 09/19/20 09:24 BASIC METABOLIC PANEL,BMP [CHEM] Routine CBC WITH AUTO DIFF [HEME] Routine 09/19/20 09:25 Renal Comp [US] Urgent MAGNESIUM [CHEM] Routine - Assessment Assessment:: As above - Plan Plan:: As above. Extensive precautions were given to the patient, who is in agreement with the treatment plan. Plan discharge to home tomorrow after renal ultrasound results have been obtained.
[2020-09-18] MEDS ORDERED: Pantoprazole 40 MG Vial IVPUSH SCH (10:00)
[2020-09-18] MEDS ORDERED: Famotidine 20 MG/2 ML SDV IVPUSH SCH (10:00)
[2020-09-18] MEDS: Lactated Ringers 1,000 ML IV SCH ×2 (10:20→19:51)
[2020-09-18] MEDS: Magnesium Oxide 400 MG Tab PO SCH ×2 (10:22→18:02)
[2020-09-18] MEDS: Ketorolac 15 MG/ML SDV IVPUSH SCH ×2 (11:57→18:02)
[2020-09-18] MEDS ORDERED: FLU Vacc QS2020-21 36MOS UP/PF 60 MCG/0.5 ML Syringe IM ONE (12:00)
[2020-09-18] MEDS: Pantoprazole 40 MG Vial IVPUSH SCH (19:39)
[2020-09-18] MEDS: Famotidine 20 MG/2 ML SDV IVPUSH SCH (19:39)
[2020-09-18] MEDS ORDERED: Pramipexole 0.125 MG Tab PO SCH (20:00)
[2020-09-19] MEDS: Sodium Chloride 0.9% 10 ML Syringe FLUSH PRN ×3 (00:28→05:58)
[2020-09-19] MEDS: Ketorolac 15 MG/ML SDV IVPUSH SCH ×2 (00:29→05:56)
[2020-09-19] MEDS: Ondansetron 4 MG/2 ML SDV IVPUSH PRN (02:15)
[2020-09-19] MEDS: Lactated Ringers 1,000 ML IV SCH (05:58)
[2020-09-19 07:42] LABS: CHLORIDE,CL 107 mmol/L (98-107); SODIUM,NA 139 mmol/L (136-145)
[2020-09-19] MEDS: Metoprolol Tartrate 25 MG Tab PO SCH (08:31)
[2020-09-19] MEDS: metFORMIN 500 MG Tab PO SCH (08:31)
[2020-09-19 08:32] VITALS: BP 150/78; PULSE 69
[2020-09-19] MEDS: PARoxetine 20 MG Tab PO SCH (08:32)
[2020-09-19] MEDS: Famotidine 20 MG/2 ML SDV IVPUSH SCH (08:32)
[2020-09-19] MEDS: Pantoprazole 40 MG Vial IVPUSH SCH (08:32)
[2020-09-19] MEDS: Phenazopyridine 95 MG Tab PO SCH (08:32)
[2020-09-19] MEDS: Magnesium Oxide 400 MG Tab PO SCH (08:32)
[2020-09-19] MEDS: Lisinopril 20 MG Tab PO SCH (08:32)
--- NOTE | 2020-09-19 09:41 | PCM.DCSUM1 ---
Discharge Summary - Hospital Course HPI Initial Comments: See emergency room note/admission H&P Brief History: See emergency room note/admission H&P Diagnosis: Stroke: No Modified [place] Scale: No Symptoms at All Modified [place] Scale Score: 0 - Discharge Data Discharge Date: 09/19/20 Discharge Disposition: Home, Self-Care 01 Condition: Good - Referral to Home Health Primary Care Physician: Rafael Spencer MD - Discharge Diagnosis/Problem(s) (1) Urolithiasis SNOMED Code(s): 72812690 ICD Code: N20.9 - URINARY CALCULUS, UNSPECIFIED Status: Chronic Priority: High Current Visit: Yes Onset Date: 09/16/20 Problem Details: Renal ultrasound today was negative for hydronephrosis with stone in the bladder at the time without evaluation. Note that the patient subsequently did pass the stone and was collected for stone analysis with results to be discussed with his regular provider at follow-up. Dietary changes and/or additional medications will likely be needed depending on this analysis. 4mm stone near right UVJ and mild right-sided hydronephrosis noted on CT on 09/16/2020 with ER evaluation in this facility at that time. Additional evidence of moderate bilateral nephrolithiasis. Previous spontaneously passed left-sided kidney stone, however the stone was not collected for analysis at that time. Aggressive pain management required during this hospitalization and during his previous emergency room care with overall good results. No indication for antibiotic therapy with urine culture and sensitivity negative for a UTI on 09/16/2020. The patient should be able to pass his stone spontaneously with urology consultation as needed. IV fluids/Flomax started once again shortly after placement in observation status. His uric acid level was normal on 09/16/2020, however note some mild hypercalcemia, which has since resolved. Oral fluids are to be encouraged as discussed. [employer] work excuse was completed. Qualifiers: Urinary calculus location: ureter Qualified Code(s): N20.1 - Calculus of ureter (2) Diabetes mellitus SNOMED Code(s): 47926266 ICD Code: E11.9 - TYPE 2 DIABETES MELLITUS WITHOUT COMPLICATIONS Status: Chronic Priority: Medium Current Visit: Yes Problem Details: Patient was changed to a diabetic, heart healthy diet on 09/18 and kept n.p.o. for planned renal ultrasound, which was conducted earlier this morning as above. Tomorrow. Otherwise, stable by history with continued close observation by his regular provider. Qualifiers: Diabetes mellitus type: type 2 Diabetes mellitus complication status: with ophthalmic complications Diabetes mellitus complication detail: with diabetic retinopathy Diabetic retinopathy severity: with mild nonproliferative retinopathy Diabetes mellitus macular edema: macular edema presence unspecified Laterality: unspecified laterality (3) Hypertension SNOMED Code(s): 83405389 ICD Code: I10 - ESSENTIAL (PRIMARY) HYPERTENSION Status: Chronic Priority: Medium Current Visit: Yes Problem Details: Overall good control during this hospitalization. Occasional mildly elevated blood pressure secondary to discomfort and anxiety. Patient tolerating additional Flomax therapy well for his urolithiasis, although this was not prescribed at discharge, since he has passed the stone. Qualifiers: Hypertension type: essential hypertension Qualified Code(s): I10 - Essential (primary) hypertension (4) Hypomagnesemia SNOMED Code(s): 305552899 ICD Code: E83.42 - HYPOMAGNESEMIA Status: Chronic Priority: Medium Current Visit: Yes Onset Date: 09/16/20 Problem Details: Patient has been compliant with his magnesium supplementation, however persistent hypomagnesemia during her emergency room visit on 09/16/2020. 1 dose of IV magnesium sulfate given shortly after admission with reinitiation of oral magnesium oxide on 09/18. Magnesium level normal at discharge. Close follow-up by his regular provider. (5) Mixed anxiety and depressive disorder SNOMED Code(s): 930807493 ICD Code: F41.8 - OTHER SPECIFIED ANXIETY DISORDERS Status: Chronic Priority: Medium Current Visit: Yes Problem Details: Moderate control during this hospitalization. Note chronic mixed migraine and tension headaches, including on 09/18 with IV Toradol and Dilaudid therapy effective for his urolithiasis. Continue to observe closely through his regular provider. (6) Osteoarthritis SNOMED Code(s): 492147422 ICD Code: M19.90 - UNSPECIFIED OSTEOARTHRITIS, UNSPECIFIED SITE Status: Chronic Priority: Medium Current Visit: Yes Problem Details: Stable by patient history and during this hospitalization. Qualifiers: Osteoarthritis location: multiple joints Osteoarthritis type: primary Qualified Code(s): M89.49 - Other hypertrophic osteoarthropathy, multiple sites (7) Peptic reflux disease SNOMED Code(s): 571053537 ICD Code: K21.9 - GASTRO-ESOPHAGEAL REFLUX DISEASE WITHOUT ESOPHAGITIS Status: Chronic Priority: Medium Current Visit: Yes Problem Details: IV Pepcid and IV Protonix initiated on 09/18 secondary to required IV Toradol therapy. Otherwise previously stable by history with previous medical therapy. (8) Sleep apnea SNOMED Code(s): 29976411 ICD Code: G47.30 - SLEEP APNEA, UNSPECIFIED Status: Chronic Priority: Medium Current Visit: Yes Problem Details: Patient will get his CPAP machine from home and use during this hospitalization. Patient is now compliant with his CPAP with previous problems with noncompliance. Qualifiers: Sleep apnea type: unspecified type Qualified Code(s): G47.30 - Sleep apnea, unspecified (9) Hypercalcemia SNOMED Code(s): 73405355 ICD Code: E83.52 - HYPERCALCEMIA Status: Acute Priority: High Current Visit: Yes Onset Date: 09/16/20 Problem Details: As above (10) Hypothyroidism (acquired) SNOMED Code(s): 492059076 ICD Code: E03.9 - HYPOTHYROIDISM, UNSPECIFIED Status: Acute Priority: Medium Current Visit: Yes Onset Date: 08/15/20 Problem Details: Possible beginning hypothyroidism with mildly elevated TSH on 08/15/2020. Repeat TSH on 09/19 was normal. (11) Frequent headaches SNOMED Code(s): 621528890 ICD Code: R51 - HEADACHE * DO NOT USE * Status: Chronic Priority: Medium Current Visit: Yes Problem Details: As above. Strong anxiety component. Headache resolved at time of discharge. (12) Hypoalbuminemia SNOMED Code(s): 659570989 ICD Code: E88.09 - OTH DISORDERS OF PLASMA-PROTEIN METABOLISM, NEC Status: Acute Priority: Medium Current Visit: Yes Onset Date: ~09/18/20 Problem Details: Observe for now. - Patient Summary/Data Operative Procedure(s) Performed: None Complications: None Consults: None Labs Pending at D/C: 1. Urinary stone analysis 2. Final report of renal ultrasound on 09/19/2020 Recommended Follow-up Testing/Procedures: As per discharge instructions Planned Operative Procedure(s) after DC: None Hospital Course: The patient was placed in observation status secondary to refractory outpatient urinary colic with successful passage of his right-sided distal ureteral stone on 09/19/2020 as above. Aggressive IV fluids, IV Toradol, and IV Dilaudid were used for pain control as above. His magnesium level was normalized with both oral and IV supplementation as above. Otherwise no complications during this hospitalization. - Patient Instructions Diet: Diabetic Diet Diet, Other: 2000-calorie, ADA with encouragement of oral fluids Activity: As Tolerated Driving: May Drive Today Showering/Bathing: May Shower Notify Provider of: Fever, Increased Pain, Nausea and/or Vomiting Other/Special Instructions: 1. Followup with your regular provider in 7-10 days as directed for reevaluation and recommended repeat CBC, basic metabolic panel, and magnesium level. Discuss results of urinary stone analysis at that time with recommendation of further medications and/or dietary changes secondary to your moderate bilateral kidney stones and recent recurrent colic. Bring these discharge instructions with you to that visit. 2. Encourage oral fluids on a long-term basis as discussed. 3. Tylenol 650 mg by mouth every 4 hours and/or OTC ibuprofen 2-3 tabs by mouth every 6 hours with food as directed./needed. You may stagger these medications for 48-72 hours only, which essentially means that you are receiving a pain medication about every 2 hours. 4. Work excuse- See Form. 5. Immediately after this visit verify that your cellular telephone's voicemail has been activated and is empty. Also verify that your home telephone's answering machine is operating properly and has space to receive messages. Note that it is sometimes necessary for us to be able to contact you at a later date to discuss your medical care. 6. Please remember that we are ALWAYS here for you and want to answer any questions you may have. Feel free to call the hospital any time and we call you back [facility]. SYMPTOMS TO LOOK OUT FOR: . You have been hospitalized for your kidney stone and should look out for the following symptoms after discharge: . 1. Make absolutely certain that you completely understand the reasons you are taking any of your new and/or old medications and/or supplements as discussed with you by the nurse at time of discharge. This includes possible side effects versus interactions between your medications and/or supplements. Don't be afraid to take extra time to ask any questions or express any concerns, because that is what we are here for. It is very important to us that you understand your care. 2. Notify this facility, telephone number [phone], and/or your regular provider [facility] if you experience any of the following symptoms: a. Any increased abdominal pain, heartburn, nausea, vomiting, cold sweats, etc., which has changed since sure h ospital discharge and is not responding to medications and/or supplements you have been prescribed. b. Any change in bowel habits, including more than 5 watery stools per day, severe constipation with no excellent bowel movements every 2 days after discharge, and/or any change in your normal bowel habits. c. Any sudden onset of change of your urinary or stool appearance, including severe bloody urine, blood, black tarry stools, etc. as discussed at discharge. d. Any persistent fever equal to or greater than 100.5 degrees, which does not respond to recommended doses of Tylenol, ibuprofen, Aleve, or other previously prescribed fever medications. . - Discharge Plan *PRESCRIPTION DRUG MONITORING PROGRAM REVIEWED*: Not Applicable *COPY OF PRESCRIPTION DRUG MONITORING REPORT IN PATIENT RUPERTO: Not Applicable Prescriptions/Med Rec: Magnesium Oxide 400 mg PO BID #60 tablet Omeprazole 20 mg PO BIDAC #30 cap.sr Home Medications: Home Meds lisinopriL [Prinivil] 20 mg PO DAILY 05/10/14 [History] Metoprolol Tartrate 25 mg PO BID 01/22/19 [History] PARoxetine HCl [Paxil] 20 mg PO DAILY 01/22/19 [History] Pramipexole Di-HCl [Pramipexole Dihydrochloride] 0.125 mg PO BEDTIME 01/22/19 [History] clonazePAM [Clonazepam] 0.5 mg PO BEDTIME 01/22/19 [History] metFORMIN HCl [Glucophage] 1,000 mg PO BID 01/22/19 [History] Cholecalciferol (Vitamin D3) [Vitamin D] 5,000 unit PO DAILY 01/30/20 [History] SitaGLIPtin [Januvia] 100 mg PO DAILY 01/30/20 [History] Cyanocobalamin (Vitamin B12) [Vitamin B12] 1 tab PO DAILY 08/15/20 [History] Magnesium Oxide 400 mg PO BID #60 tablet 09/19/20 [Rx] Omeprazole 20 mg PO BIDAC #30 cap.sr 09/19/20 [Rx] Oxygen Therapy Mode: Room Air Patient Handouts: Kidney Stones, [id number] Forms: ED Department Discharge Referrals: Rafael Spencer MD [Primary Care Provider] - - Discharge Summary/Plan Comment DC Time >30 min.: Yes (Coordination of care ) Discharge Summary/Plan Comment: As above. Extensive precautions were given to the patient, who is in agreement with the treatment plan. See Patient Instructions for further treatment and plan. - General Info Date of Service: 09/19/20 Admission Dx/Problem (Free Text: Right-sided urolithiasis with refractory colic Functional Status: Reports: Pain Controlled, Tolerating Diet, Ambulating, Urinating, New Symptoms. Denies: Incentive Spirometry Numeric/FACES Score: 0 - Review of Systems General: Reports: No Symptoms. Denies: Fever (Maximum temperature of 37.2 degrees with patient afebrile at discharge), Weakness, Fatigue, Malaise, Chills, Night Sweats, Appetite (Adequate) HEENT: Reports: No Symptoms. Denies: Dysphasia, Ear Pain, Eye Pain, Headaches, Post Nasal Drip, Sinus Congestion, Sore Throat, Rhinitis, Visual Changes Pulmonary: Reports: No Symptoms. Denies: Shortness of Breath, Pleuritic Chest Pain, Cough, Sputum, Hemoptysis Cardiovascular: Reports: No Symptoms. Denies: Chest Pain, Palpitations, Dyspnea on Exertion, Orthopnea, Edema, Lightheadedness Gastrointestinal: Reports: No Symptoms. Denies: Abdominal Pain, Constipation (Although no bowel movement since hospitalization with patient feeling he needs to have bowel movement soon and not wanting any further medications), Decreased Appetite, Diarrhea, Difficulty Swallowing, Flatus, Hematochezia, Melena, Nausea, Vomiting Genitourinary: Reports: No Symptoms. Denies: Dysuria, Frequency, Burning, Pain, Urgency, Incontinence, Hematuria, Retention, Flank Pain, Other Musculoskeletal: Reports: No Symptoms. Denies: Neck Pain, Shoulder Pain, Arm Pain, Back Pain, Leg Pain Skin: Reports: No Symptoms. Denies: Cyanosis, Jaundice, Diaphoresis, Bruising, Pruritis, Rash Neurological: Reports: No Symptoms. Denies: Confusion, Dizziness, Headache, Numbness, Paresthesia, Tingling, Weakness Psychiatric: Reports: Depression (Stable by history), Anxiety (Stable by history). Denies: Confusion, Agitation, Cravings, Hallucinations - Patient Data Vitals - Most Recent: Last Vital Signs Temp 36.6 C 09/19/20 08:00 Pulse 69 09/19/20 08:31 Resp 16 09/19/20 08:00 BP 150/78 H 09/19/20 08:32 Pulse Ox 99 09/19/20 08:00 Vital Signs - 24 hr 09/18/20 09/18/20 09/18/20 14:00 18:03 19:46 Temperature [ 36.5 C 37.1 C Temporal] Pulse, 77 Peripheral Pulse, 77 77 Peripheral [ Right Pulse Oximetry] Respiratory 16 16 Rate Blood Pressure 120/67 Blood Pressure 133/70 [Left Upper Arm ] Blood Pressure 120/67 [Right Upper Arm] O2 Sat by Pulse 100 99 Oximetry 09/19/20 09/19/20 09/19/20 02:00 08:00 08:31 Temperature [ 37.2 C 36.6 C Temporal] Pulse, 69 Peripheral Pulse, 70 69 Peripheral [ Right Pulse Oximetry] Respiratory 16 16 Rate Blood Pressure 150/78 H Blood Pressure 115/56 L 150/78 H [Left Upper Arm ] Blood Pressure [Right Upper Arm] O2 Sat by Pulse 97 99 Oximetry 09/19/20 08:32 Temperature [ Temporal] Pulse, Peripheral Pulse, Peripheral [ Right Pulse Oximetry] Respiratory Rate Blood Pressure 150/78 H Blood Pressure [Left Upper Arm ] Blood Pressure [Right Upper Arm] O2 Sat by Pulse Oximetry Weight - Most Recent: 90.718 kg I&O - Last 24 hours: Intake & Output 09/18/20 09/19/20 09/19/20 22:59 06:59 14:59 Intake Total 2737 1165 360 Output Total 1400 800 Balance 1337 365 360 Imaging Impressions - Last 24 hrs: Preliminary verbal report from brendon Alonso, concerning renal ultrasound results from today-09/19/2020. Stable bilateral nephrolithiasis with right kidney stone now in the bladder and mobile. No hydronephrosis. Lab Results - Last 24 hrs: Laboratory Results - last 24 hr 09/19/20 09/19/20 09/19/20 Range/Units 07:05 07:05 07:05 WBC 6.2 (4.0-10.2) K/uL RBC 4.40 (4.33-5.41) M/uL Hgb 13.1 (13.1-16.8) g/dL Hct 39.4 (39.0-49.0) % MCV 89.5 (84.0-98.0) fL MCH 29.8 (28.2-33.3) pg MCHC 33.2 (31.7-36.0) g/dL RDW 12.6 (11.2-14.1) % Plt Count 146 L (150-350) K/uL Neut % (Auto) 73.0 (45.0-80.0) % Lymph % (Auto) 15.9 (10.0-50.0) % Casey % (Auto) 9.8 (2.0-14.0) % Eos % (Auto) 1.0 (0.0-5.0) % Baso % (Auto) 0.3 (0.0-2.0) % Neut # (Auto) 4.54 (1.40-7.00) K/uL Lymph # (Auto) 0.99 (0.50-3.50) K/uL Casey # (Auto) 0.61 (0.00-1.00) K/uL Eos # (Auto) 0.06 (0.00-0.50) K/uL Baso # (Auto) 0.02 (0.00-0.20) K/uL Sodium 139 (136-145) mmol/L Potassium 4.1 (3.5-5.1) mmol/L Chloride 107 (98-107) mmol/L Carbon Dioxide 26.9 (21.0-32.0) mmol/L BUN 8 (7-18) mg/dL Creatinine 1.08 (0.51-1.17) mg/dL Est Cr Clr Drug Dosing 85.90 mL/min Estimated GFR (MDRD) > 60 mL/min Glucose 135 H (74-106) mg/dL Calcium 8.9 (8.5-10.1) mg/dL Magnesium 1.9 (1.8-2.4) mg/dL TSH, Ultra Sensitive 0.993 (0.358-3.740) mIU/mL Laboratory Tests 09/18/20 09/18/20 09/19/20 Range/Units 07:10 07:10 07:05 WBC 5.1 6.2 (4.0-10.2) K/uL RBC 4.43 4.40 (4.33-5.41) M/uL Hgb 13.1 13.1 (13.1-16.8) g/dL Hct 39.1 39.4 (39.0-49.0) % MCV 88.3 89.5 (84.0-98.0) fL MCH 29.6 29.8 (28.2-33.3) pg MCHC 33.5 33.2 (31.7-36.0) g/dL RDW 12.5 12.6 (11.2-14.1) % Plt Count 142 L 146 L (150-350) K/uL Neut % (Auto) 58.4 73.0 (45.0-80.0) % Lymph % (Auto) 27.5 15.9 (10.0-50.0) % Casey % (Auto) 8.8 9.8 (2.0-14.0) % Eos % (Auto) 4.7 1.0 (0.0-5.0) % Baso % (Auto) 0.6 0.3 (0.0-2.0) % Neut # (Auto) 2.97 4.54 (1.40-7.00) K/uL Lymph # (Auto) 1.40 0.99 (0.50-3.50) K/uL Casey # (Auto) 0.45 0.61 (0.00-1.00) K/uL Eos # (Auto) 0.24 0.06 (0.00-0.50) K/uL Baso # (Auto) 0.03 0.02 (0.00-0.20) K/uL Sodium 138 (136-145) mmol/L Potassium 3.6 (3.5-5.1) mmol/L Chloride 105 (98-107) mmol/L Carbon Dioxide 25.0 (21.0-32.0) mmol/L BUN 10 (7-18) mg/dL Creatinine 1.16 (0.51-1.17) mg/dL Est Cr Clr Drug Dosing 80.36 mL/min Estimated GFR (MDRD) > 60 mL/min Glucose 107 H (74-106) mg/dL Calcium 8.7 D (8.5-10.1) mg/dL Magnesium 2.1 (1.8-2.4) mg/dL Total Bilirubin 0.8 (0.2-1.0) mg/dL AST 24 (15-37) U/L ALT 31 (12-78) U/L Alkaline Phosphatase 77 (46-116) IU/L Total Protein 5.6 L (6.4-8.2) g/dL Albumin 3.2 L (3.4-5.0) g/dL TSH, Ultra Sensitive (0.358-3.740) mIU/mL 09/19/20 09/19/20 Range/Units 07:05 07:05 WBC (4.0-10.2) K/uL RBC (4.33-5.41) M/uL Hgb (13.1-16.8) g/dL Hct (39.0-49.0) % MCV (84.0-98.0) fL MCH (28.2-33.3) pg MCHC (31.7-36.0) g/dL RDW (11.2-14.1) % Plt Count (150-350) K/uL Neut % (Auto) (45.0-80.0) % Lymph % (Auto) (10.0-50.0) % Casey % (Auto) (2.0-14.0) % Eos % (Auto) (0.0-5.0) % Baso % (Auto) (0.0-2.0) % Neut # (Auto) (1.40-7.00) K/uL Lymph # (Auto) (0.50-3.50) K/uL Casey # (Auto) (0.00-1.00) K/uL Eos # (Auto) (0.00-0.50) K/uL Baso # (Auto) (0.00-0.20) K/uL Sodium 139 (136-145) mmol/L Potassium 4.1 (3.5-5.1) mmol/L Chloride 107 (98-107) mmol/L Carbon Dioxide 26.9 (21.0-32.0) mmol/L BUN 8 (7-18) mg/dL Creatinine 1.08 (0.51-1.17) mg/dL Est Cr Clr Drug Dosing 85.90 mL/min Estimated GFR (MDRD) > 60 mL/min Glucose 135 H (74-106) mg/dL Calcium 8.9 (8.5-10.1) mg/dL Magnesium 1.9 (1.8-2.4) mg/dL Total Bilirubin (0.2-1.0) mg/dL AST (15-37) U/L ALT (12-78) U/L Alkaline Phosphatase (46-116) IU/L Total Protein (6.4-8.2) g/dL Albumin (3.4-5.0) g/dL TSH, Ultra Sensitive 0.993 (0.358-3.740) mIU/mL SAI Results - Last 24 hrs: None Med Orders - Current: Current Medications Acetaminophen (Tylenol) 650 mg PO Q3H PRN PRN Reason: Headache/Pain Last Admin: 09/18/20 13:46 Dose: 650 mg Documented by: Alogliptin Benzoate (Alogliptin) 25 mg PO DAILY [facility] Last Admin: 09/19/20 08:31 Dose: 25 mg Documented by: Famotidine (Pepcid) 20 mg IVPUSH BID@0800,2000 [facility] Last Admin: 09/19/20 08:32 Dose: 20 mg Documented by: Hydromorphone HCl (Dilaudid) 0.5 mg IVPUSH Q1H PRN PRN Reason: Pain (moderate 4-6) Last Admin: 09/18/20 19:39 Dose: 0.5 mg Documented by: Lactated Ringer's (Ringers, Lactated) 1,000 mls @ 100 mls/hr IV ASDIRECTED [facility] Last Admin: 09/19/20 05:58 Dose: 100 mls/hr Documented by: Ketorolac Tromethamine (Toradol) 15 mg IVPUSH Q6H [facility] Last Admin: 09/19/20 05:56 Dose: 15 mg Documented by: Lisinopril (Prinivil) 20 mg PO DAILY [facility] Last Admin: 09/19/20 08:32 Dose: 20 mg Documented by: Magnesium Oxide (Magnesium Oxide) 400 mg PO BID [facility] Last Admin: 09/19/20 08:32 Dose: 400 mg Documented by: Metformin HCl (Glucophage) 1,000 mg PO BID [facility] Last Admin: 09/19/20 08:31 Dose: 1,000 mg Documented by: Metoprolol Tartrate (Lopressor) 25 mg PO BID [facility] Last Admin: 09/19/20 08:31 Dose: 25 mg Documented by: Ondansetron HCl (Zofran) 4 mg IVPUSH Q6H PRN PRN Reason: Nausea/Vomiting Last Admin: 09/19/20 02:15 Dose: 4 mg Documented by: Pantoprazole Sodium (Protonix Iv) 40 mg IVPUSH BID@0800,1999 [facility] Last Admin: 09/19/20 08:32 Dose: 40 mg Documented by: Paroxetine HCl (Paxil) 20 mg PO DAILY [facility] Last Admin: 09/19/20 08:32 Dose: 20 mg Documented by: Phenazopyridine HCl (Urinary Pain Relief) 95 mg PO TIDPC [facility] Last Admin: 09/19/20 08:32 Dose: 95 mg Documented by: Pramipexole Dihydrochloride (Mirapex) 0.125 mg PO BEDTIME [facility] Last Admin: 09/18/20 19:40 Dose: 0.125 mg Documented by: Sodium Chloride (Saline Flush) 10 ml FLUSH ASDIRECTED PRN PRN Reason: Keep Vein Open Last Admin: 09/19/20 05:58 Dose: 10 ml Documented by: Discontinued Medications Famotidine (Pepcid) 20 mg IVPUSH Q12H [facility] Last Admin: 09/18/20 10:21 Dose: 20 mg Documented by: Fentanyl (Sublimaze) 100 mcg IVPUSH ONETIME ONE Stop: 09/17/20 18:30 Last Admin: 09/17/20 21:33 Dose: Not Given Documented by: Hydromorphone HCl (Dilaudid) 0.5 mg IVPUSH ONETIME ONE Stop: 09/17/20 17:26 Last Admin: 09/17/20 19:37 Dose: 0.5 mg Documented by: Hydromorphone HCl (Dilaudid) Confirm Administered Dose 0.5 mg .ROUTE .STK-MED ONE Stop: 09/17/20 17:36 Last Admin: 09/17/20 20:04 Dose: Not Given Documented by: Hydromorphone HCl (Dilaudid) Confirm Administered Dose 1 mg .ROUTE .STK-MED ONE Stop: 09/17/20 18:06 Last Admin: 09/17/20 20:09 Dose: Not Given Documented by: Hydromorphone HCl (Dilaudid) 0.5 mg IVPUSH ONETIME ONE Stop: 09/17/20 17:38 Last Admin: 09/17/20 20:04 Dose: Not Given Documented by: Hydromorphone HCl (Dilaudid) 1 mg IVPUSH ONETIME ONE Stop: 09/17/20 18:06 Last Admin: 09/17/20 20:09 Dose: Not Given Documented by: Sodium Chloride (Normal Saline) 1,000 mls @ 999 mls/hr IV .BOLUS ONE Stop: 09/17/20 18:25 Last Admin: 09/17/20 19:39 Dose: 999 mls/hr Documented by: Sodium Chloride (Normal Saline) 1,000 mls @ 500 mls/hr IV .BOLUS ONE Stop: 09/17/20 21:20 Last Admin: 09/17/20 19:40 Dose: 500 mls/hr Documented by: Magnesium Sulfate/Dextrose 1 (gm/ Premix) 100 mls @ 100 mls/hr IV ONETIME ONE Stop: 09/17/20 22:59 Last Admin: 09/17/20 22:59 Dose: 100 mls/hr Documented by: Sodium Chloride (Normal Saline) 1,000 mls @ 150 mls/hr IV ASDIRECTED [facility] Last Admin: 09/17/20 21:00 Dose: 150 mls/hr Documented by: Influenza Virus Vaccine (Pharmacy To Dose - Influenza Vaccine) 1 each IM ONETIM E ONE Stop: 09/18/20 06:31 Influenza Virus Vaccine (Afluria Quad 2019- (3yr Up)) 60 mcg IM .ONCE ONE Stop: 09/18/20 12:01 Last Admin: 09/18/20 11:58 Dose: 60 mcg Documented by: Ketorolac Tromethamine (Toradol) 30 mg IVPUSH ONETIME ONE Stop: 09/17/20 17:25 Last Admin: 09/17/20 19:36 Dose: 30 mg Documented by: Ketorolac Tromethamine (Toradol) 30 mg IVPUSH Q6H [facility] Stop: 09/22/20 19:46 Last Admin: 09/17/20 21:33 Dose: Not Given Documented by: Ketorolac Tromethamine (Toradol) 30 mg IVPUSH Q6H [facility] Last Admin: 09/18/20 06:21 Dose: 30 mg Documented by: Lorazepam (Ativan) 0.5 mg IVPUSH ONETIME ONE Stop: 09/17/20 17:40 Last Admin: 09/17/20 19:38 Dose: 0.5 mg Documented by: Ondansetron HCl (Zofran) 4 mg IVPUSH ONETIME ONE Stop: 09/17/20 17:25 Last Admin: 09/17/20 19:37 Dose: 4 mg Documented by: Pantoprazole Sodium (Protonix Iv) 40 mg IVPUSH Q12H [facility] Last Admin: 09/18/20 10:21 Dose: 40 mg Documented by: Tamsulosin HCl (Flomax) 0.4 mg PO ONETIME ONE Stop: 09/17/20 17:25 Last Admin: 09/17/20 18:49 Dose: 0.4 mg Documented by: Tamsulosin HCl (Flomax) 0.4 mg PO ONETIME ONE Stop: 09/18/20 06:01 Last Admin: 09/18/20 06:22 Dose: 0.4 mg Documented by: - Exam Quality Assessment: Reports: DVT Prophylaxis. Denies: Supplemental Oxygen, Central Line/PICC, Urine Catheter (Discontinued early yesterday morning), Skin Breakdown, Restraints General: Reports: Alert, Oriented, Cooperative, No Acute Distress HEENT: Reports: Pupils Equal, Pupils Reactive, EOMI, Mucous Membr. Moist/[place]. Denies: Scleral Icterus Neck: Reports: Supple, Trachea Midline, No JVD, No Thyromegaly. Denies: Lymphadenopathy Lungs: Reports: Clear to Auscultation, Normal Respiratory Effort. Denies: Rub Cardiovascular: Reports: Regular Rate, Regular Rhythm, No Murmurs. Denies: Gallops, Rubs GI/Abdominal Exam: Normal Bowel Sounds, Soft, Non-Tender, No Organomegaly, No Distention, No Abnormal Bruit, No Mass. No: Guarding (Male) Exam: Deferred Rectal (Males) Exam: Deferred Back Exam: Reports: Normal Inspection, Full Range of Motion. Denies: CVA Tenderness (L), CVA Tenderness (R), Muscle Spasm Extremities: Normal Inspection, Normal Range of Motion, Non-Tender, No Pedal Edema, Normal Capillary Refill. No: Ashlyn's Sign Skin: Reports: Warm, Dry, Intact. Denies: Ecchymosis Neurological: Reports: No New Focal Deficit Psy/Mental Status: Reports: Alert, Anxious (Mild however improved from admission ), Depressed (Mild however improved from admission). Denies: Agitated, Hallucinations, Withdrawal Symptoms
== END 2020-09-19 10:35 | disposition home or self-care (01) ==
LOC: LL.ED 17:17 → UNDOADMOB 18:48 → LL.MS 18:48
PROVIDERS: ADMIT Emergency Medicine; ATTEND Family Medicine
DX: N20.1 Calculus of ureter (principal); E83.42 Hypomagnesemia; F41.8 Other specified anxiety disorders; E11.3293 Type 2 diabetes mellitus with mild nonproliferative diabetic retinopathy without macular edema, bilateral; M19.90 Unspecified osteoarthritis, unspecified site; I10 Essential (primary) hypertension; G47.30 Sleep apnea, unspecified; K21.9 Gastro-esophageal reflux disease without esophagitis; E03.9 Hypothyroidism, unspecified; E11.40 Type 2 diabetes mellitus with diabetic neuropathy, unspecified; E83.52 Hypercalcemia; E88.09 Other disorders of plasma-protein metabolism, not elsewhere classified; Z88.8 Allergy status to other drugs, medicaments and biological substances; Z79.899 Other long term (current) drug therapy; Z79.84 Long term (current) use of oral hypoglycemic drugs
CPT/HCPCS: 36415; 76770; 80048; 80053; 82365; 83735; 84443; 85025; 90686; 96374; 96375; 99217; 99219; 99225; 99284-25; A9270-GY; C9113; G0008; J1170; J1885; J2060; J2405; J3475; J3490; J7030; J7120

== ENCOUNTER 2020-11-10 20:59 | Emergency (ER) | payer OTHER, BC ==
[2020-11-10] MEDS: Promethazine 25 MG/ML SDV IM ONE (21:50)
[2020-11-10 22:01] LABS: PTT,PARTIAL THROMBOPLSTIN TIME 24.7 SEC (24.5-32.8)
[2020-11-10 22:07] LABS: CHLORIDE,CL 103 mmol/L (98-107); SODIUM,NA 139 mmol/L (136-145)
--- NOTE | 2020-11-10 22:31 | EDM.PDOC ---
ED HPI GENERAL MEDICAL PROBLEM - General Chief Complaint: Chest Pain Stated Complaint: chest pain, vomiting, fatigue Time Seen by Provider: 11/10/20 21:47 Source of Information: Reports: Patient History Limitations: Reports: No Limitations - History of Present Illness INITIAL COMMENTS - FREE TEXT/NARRATIVE: Patient comes to ER complaining of not feeling well since he woke up this morning. Nausea/fatigue/headache. Has not wanted to eat/drink today. No new body aches or fevers. No sick contacts. Had substernal discomfort part of day that did not radiate. This went away at the same time he left his house to come to the ER to be seen. Burning pain. Had emesis x2 at home but no bowel changes. No constipation. No dysuria/UTI/hematuria N complaints. Also denies HEENT changes/sore throat/runny nose No RESP changes/cough/SOB/pleuritic pain. No other reported changes. Generalized Pain Score (Numeric/FACES): 6 - Related Data Allergies Allergy/AdvReac Type Severity Reaction Status Date / Time gluten Allergy Rash Verified 11/10/20 21:26 latex Allergy Rash Verified 11/10/20 21:26 sumatriptan [From Imitrex] Allergy Hypertensio Verified 11/10/20 21:26 n sumatriptan succinate Allergy Hypertensio Verified 11/10/20 21:26 [From Imitrex] n Home Meds: Home Meds lisinopriL [Prinivil] 20 mg PO DAILY 05/10/14 [History] PARoxetine HCl [Paxil] 40 mg PO DAILY 01/22/19 [History] Pramipexole Di-HCl [Pramipexole Dihydrochloride] 0.125 mg PO BEDTIME 01/22/19 [History] clonazePAM [Clonazepam] 0.5 mg PO BEDTIME 01/22/19 [History] metFORMIN HCl [Glucophage] 1,000 mg PO DAILY 01/22/19 [History] Cholecalciferol (Vitamin D3) [Vitamin D] 25 mg PO DAILY 01/30/20 [History] Cyanocobalamin (Vitamin B12) [Vitamin B12] 1 tab PO DAILY 08/15/20 [History] Alogliptin Benzoate [Alogliptin] 25 mg PO DAILY 11/10/20 [History] Carbidopa/Levodopa [Carbidopa-Levo 25-100 MG ODT] 100 mg PO DAILY 11/10/20 [History] Magnesium Oxide [Magnesium] 500 mg PO DAILY 11/10/20 [History] Metoprolol Succinate [Toprol XL 50mg] 50 mg PO DAILY #30 tab.er 11/10/20 [Rx] Ondansetron [Zofran ODT] 4 mg PO Q6H PRN #15 tab.dis 11/10/20 [Rx] Potassium Gluconate [Potassium] 99 mg PO DAILY 11/10/20 [History] Past Medical History HEENT History: Reports: Allergic Rhinitis, Impaired Vision, Other (See Below) Other HEENT History: Diabetic retinopathy, OTC reading glasses. Cardiovascular History: Reports: High Cholesterol, Hypertension, Other (See Below) Other Cardiovascular History: History of hyperlipidemia with fatty liver by CT scan Respiratory History: Reports: Intubation, Previous, Sleep Apnea, Other (See Below) Other Respiratory History: Patient is currently compliant with CPAP with previous history of noncompliance. Gastrointestinal History: Reports: Cholelithiasis, Fatty Liver, GERD, Hiatal Hernia, PUD Other Gastrointestinal History: Note history of Monica fundoplication and cholecystectomy as below Genitourinary History: Reports: BPH, Prostate Disorder, Renal Calculus, Other (See Below) Other Genitourinary History: Bilateral moderate nephrolithiasis by CT scan with left-sided urolithiasis in March 2020 with spontaneous passage. Musculoskeletal History: Reports: Arthritis, Back Pain, Chronic, Neck Pain, Chronic, Osteoarthritis, Other (See Below) Other Musculoskeletal History: Positive BETHANIE in July 2016 Neurological History: Reports: Headaches, Chronic, Head Trauma, Migraines, Other (See Below) Other Neuro History: Refractory recurrent migraine/tension headaches, head contusion without concussion on 04/25/16 Psychiatric History: Reports: Addiction, Anxiety, Depression, Other (See Below) Other Psychiatric History: History of previous chronic narcotic use. Endocrine/Metabolic History: Reports: Diabetes, Type II, Other (See Below) Other Endocrine/Metabolic History: Hypocalcemia. Hematologic History: Reports: Blood Transfusion(s), Other (See Below) Other Hematologic History: Blood transfusions at time of Monica fundoplication Immunologic History: Reports: Other (See Below) Other Immunologic History: Note previous negative workup for positive BETHANIE Oncologic (Cancer) History: Reports: None Dermatologic History: Reports: Eczema, Venous Stasis Dermatitis Other Dermatologic History: Venous stasis dermatitis - Infectious Disease History Infectious Disease History: Reports: Chicken Pox - Past Surgical History Head Surgeries/Procedures: Reports: None HEENT Surgical History: Reports: None, Oral Surgery, Other (See Below) Other HEENT Surgeries/Procedures: Previous tooth extractions. Cardiovascular Surgical History: Reports: None Other Cardiovascular Surgeries/Procedures: Left leg injections/sclerotherapy for varicose veins in about 2010 Respiratory Surgical History: Reports: None GI Surgical History: Reports: Appendectomy, Cholecystectomy, Colonoscopy, EGD, Hernia, Inguinal, Monica Fundoplication, Other (See Below) Other GI Surgeries/Procedures: Monica fundoplication in September 2009. Appendectomy in 1990. Laparoscopic cholecystectomy with concomitant liver biopsy on 08/08/19. Last EGD on 07/26/2020 with negative work-up for foreign body with previous EGD and colonoscopy on 08/18/19 and additional previous EGD on 03/23/17, 2009 and in 2007. Previous colonoscopy in about 2012. Right inguinal hernia repair in 1988. Male Surgical History: Reports: Circumcision, Vasectomy, Other (See Below) Other Male Surgeries/Procedures: Circumcision as an . Vasectomy in about 1995. Endocrine Surgical History: Reports: None Neurological Surgical History: Reports: None Musculoskeletal Surgical History: Reports: Arthroscopic Knee, Arthroscopic Procedure, Shoulder Surgery, Other (See Below) Other Musculoskeletal Surgeries/Procedures:: Right-sided arthroscopic meniscal repair in 1986. Right laparoscopic shoulder surgery in October 2016. Oncologic Surgical History: Reports: None Dermatological Surgical History: Reports: None - Past Imaging History Past Imaging History: Reports: Angiography ([facility] in February 2015.), CAT Scan (CT of the chest on 08/15/2020 with CTA of the chest on 03/21/17. Last CT of the brain on 04/25/16 with multiple previous evaluations by history. CT of the abdomen and pelvis in March 2020 and on 04/21/11 and 07/30/07.), HIDA Scan (07/29/07), MRI (Negative MRI of the brain on 03/25/2020 with previous evaluations on 03/25/2020 and 09/27/2007.), Stress Testing (Cardiac stress test of unknown type at [facility] in February 2015.), Ultrasound (Gallbladder ultrasound on 07/26/17.), Upper GI X-Ray/Series (Upper GI with swallowing study on 02/25/12.), Venous Doppler (Left leg on 04/05/06.), Other (See Below) (EMG and nerve conduction studies in July 2016. Esophageal motility evaluation on 05/19/12.) Social & Family History - Family History HEENT: Reports: Impaired Vision, Other (See Below) Other HEENT Family History: Brother with IDDM and secondary diabetic retinopathy. Cardiac: Reports: CAD, Heart Murmur, OK, Stent, Syncope, Other (See Below) Other Cardiac Family History: History of early heart attacks in family, includ ing brother in his 50s another brother in his 60s with brother also having a valve disorder with secondary syncopal episodes, which did require valve replacement at age 62. Both brothers did have PTCA/stents. Father with initial OK at age 50 with subsequent multiple MIs with no further procedures done however fatal OK at age 60. Respiratory: Reports: None GI: Reports: None : Reports: Dialysis, Renal Disease/Insufficiency Other Family History: Brother with IDDM and secondary diabetic nephropathy and current dialysis. OBGYN: Reports: None Musculoskeletal: Reports: None Neurological: Reports: Neuropathy, Diabetic, Neuropathy, Peripheral, Parkinson's, Other (See Below) Other Neurological Family History: Brother with diabetic neuropathy. Maternal aunt with Parkinson's disease Psychiatric: Reports: None Endocrine/Metabolic: Reports: Diabetes, type II, IDDM, Other (See Below) Other Endocrine/Metabolic Family History: Brother with IDDM and secondary complications as above. Hematologic: Reports: None Immunologic: Reports: None Dermatologic: Reports: None Oncologic: Reports: None - Tobacco Use Tobacco Use Status *Q: Never Tobacco User - Caffeine Use Caffeine Use: Reports: Coffee, Soda Caffeine Use Comment: One cup of coffee per day, 2 sodas per day - Recreational Drug Use Recreational Drug Use: No - Living Situation & Occupation Living situation: Reports: (1989, 3 children), with Family () Occupation: Employed (Currently works in [employer]. 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 ED EXAM, GENERAL - Physical Exam Exam: See Below Exam Limited By: No Limitations General Appearance: Alert, WD/WN, No Apparent Distress Eye Exam: Bilateral Eye: EOMI, PERRL Ears: Hearing Grossly Normal Nose: No: Nasal Deformity, Nasal Swelling, Nasal Drainage Throat/Mouth: Normal Lips, Normal Voice, No Airway Compromise Head: Atraumatic, Normocephalic Neck: Supple, Full Range of Motion Respiratory/Chest: No Respiratory Distress, Lungs Clear, Normal Breath Sounds, No Accessory Muscle Use, Chest Non-Tender Cardiovascular: Normal Peripheral Pulses, Regular Rate, Rhythm, No Edema, No Murmur Peripheral Pulses: 2+: Radial (L), Radial (R) GI/Abdominal: Soft, Non-Tender, No Distention, Other (diminished bowel sounds throughout). No: Guarding, Rigid, Rebound, Tender (Male) Exam: Deferred Rectal (Males) Exam: Deferred Back Exam: Other (mild discomfort diffusely with palpation that patient says is from his chronic back pain). No: CVA Tenderness (L), CVA Tenderness (R) Extremities: Normal Range of Motion, Non-Tender, Normal Capillary Refill Neurological: Alert, Oriented, Normal Cognition, Normal Gait, No Motor/Sensory Deficits Psychiatric: Normal Affect, Normal Mood Skin Exam: Warm, Dry, Intact, Normal Color #1 Interpretation EKG Date: 11/10/20 Time: 21:04 Rhythm: NSR Rate (Beats/Min): 79 Ririe: Normal P-Wave: Present QRS: Normal ST-T: Normal QT: Normal Course - Vital Signs Last Recorded V/S: Last Vital Signs Temp 36.6 C 11/10/20 22:36 Pulse 89 11/10/20 22:36 Resp 15 11/10/20 22:36 BP 122/83 11/10/20 22:36 Pulse Ox 98 11/10/20 22:36 - Orders/Labs/Meds Orders: Active Orders 24 hr Category Date Time Status EKG Documentation Completion [RC] ASDIRECTED Care 11/10/20 21:12 Active EKG Documentation Completion [RC] STAT Care 11/10/20 21:12 Active Chest 1V Frontal [CR] Stat Exams 11/10/20 21:13 Taken Labs: Laboratory Tests 11/10/20 11/10/20 11/10/20 Range/Units 21:25 21:25 21:25 WBC 6.4 (4.0-10.2) K/uL RBC 5.40 (4.33-5.41) M/uL Hgb 15.8 D (13.1-16.8) g/dL Hct 47.2 (39.0-49.0) % MCV 87.4 (84.0-98.0) fL MCH 29.3 (28.2-33.3) pg MCHC 33.5 (31.7-36.0) g/dL RDW 12.5 (11.2-14.1) % Plt Count 181 (150-350) K/uL Neut % (Auto) 71.5 (45.0-80.0) % Lymph % (Auto) 19.8 (10.0-50.0) % Meade % (Auto) 6.2 (2.0-14.0) % Eos % (Auto) 2.2 (0.0-5.0) % Baso % (Auto) 0.3 (0.0-2.0) % Neut # (Auto) 4.60 (1.40-7.00) K/uL Lymph # (Auto) 1.27 (0.50-3.50) K/uL Meade # (Auto) 0.40 (0.00-1.00) K/uL Eos # (Auto) 0.14 (0.00-0.50) K/uL Baso # (Auto) 0.02 (0.00-0.20) K/uL PT (9.5-12.0) SEC INR APTT (24.5-32.8) SEC D-Dimer, Quantitative (0-400) ng/mL Sodium 139 (136-145) mmol/L Potassium 4.0 (3.5-5.1) mmol/L Chloride 103 (98-107) mmol/L Carbon Dioxide 28.0 (21.0-32.0) mmol/L BUN 8 (7-18) mg/dL Creatinine 0.80 (0.51-1.17) mg/dL Est Cr Clr Drug Dosing 116.52 mL/min Estimated GFR (MDRD) > 60 mL/min Glucose 138 H (74-106) mg/dL Lactic Acid 1.9 (0.4-2.0) mmol/L Calcium 10.1 (8.5-10.1) mg/dL Magnesium (1.8-2.4) mg/dL Total Bilirubin 0.5 (0.2-1.0) mg/dL AST 15 (15-37) U/L ALT 26 (12-78) U/L Alkaline Phosphatase 95 (46-116) IU/L Creatine Kinase 49 (26-308) U/L Creatine Kinase Index 0.6 (0.0-2.5) % CK-MB (CK-2) 0.30 (0.00-3.60) ng/mL Troponin I 0.002 (0.000-0.056) ng/mL NT-Pro-B Natriuret Pep 26 (0-125) pg/mL Total Protein 7.2 (6.4-8.2) g/dL Albumin 4.2 (3.4-5.0) g/dL TSH, Ultra Sensitive (0.358-3.740) mIU/mL 11/10/20 11/10/20 11/10/20 Range/Units 21:25 21:25 21:25 WBC (4.0-10.2) K/uL RBC (4.33-5.41) M/uL Hgb (13.1-16.8) g/dL Hct (39.0-49.0) % MCV (84.0-98.0) fL MCH (28.2-33.3) pg MCHC (31.7-36.0) g/dL RDW (11.2-14.1) % Plt Count (150-350) K/uL Neut % (Auto) (45.0-80.0) % Lymph % (Auto) (10.0-50.0) % Meade % (Auto) (2.0-14.0) % Eos % (Auto) (0.0-5.0) % Baso % (Auto) (0.0-2.0) % Neut # (Auto) (1.40-7.00) K/uL Lymph # (Auto) (0.50-3.50) K/uL Meade # (Auto) (0.00-1.00) K/uL Eos # (Auto) (0.00-0.50) K/uL Baso # (Auto) (0.00-0.20) K/uL PT 9.9 (9.5-12.0) SEC INR 1.0 APTT 24.7 (24.5-32.8) SEC D-Dimer, Quantitative < 100 (0-400) ng/mL Sodium (136-145) mmol/L Potassium (3.5-5.1) mmol/L Chloride (98-107) mmol/L Carbon Dioxide (21.0-32.0) mmol/L BUN (7-18) mg/dL Creatinine (0.51-1.17) mg/dL Est Cr Clr Drug Dosing mL/min Estimated GFR (MDRD) mL/min Glucose (74-106) mg/dL Lactic Acid (0.4-2.0) mmol/L Calcium (8.5-10.1) mg/dL Magnesium 1.8 (1.8-2.4) mg/dL Total Bilirubin (0.2-1.0) mg/dL AST (15-37) U/L ALT (12-78) U/L Alkaline Phosphatase (46-116) IU/L Creatine Kinase (26-308) U/L Creatine Kinase Index (0.0-2.5) % CK-MB (CK-2) (0.00-3.60) ng/mL Troponin I (0.000-0.056) ng/mL NT-Pro-B Natriuret Pep (0-125) pg/mL Total Protein (6.4-8.2) g/dL Albumin (3.4-5.0) g/dL TSH, Ultra Sensitive 1.062 (0.358-3.740) mIU/mL Meds: Medications Discontinued Medications Generic Name Dose Route Start Last Admin Trade Name Freq PRN Reason Stop Dose Admin Al Hydroxide/Mg Hydroxide 30 ml 11/10/20 21:51 Gi Cocktail PO 11/10/20 21:52 ONETIME ONE Pantoprazole Sodium 40 mg 11/10/20 22:38 Protonix PO 11/10/20 22:39 ONETIME ONE Promethazine HCl 25 mg 11/10/20 21:23 11/10/20 21:50 Phenergan IM 11/10/20 21:24 25 mg ONETIME ONE Administration - Re-Assessments/Exams Free Text/Narrative Re-Assessment/Exam: 11/10/20 22:44 Due to chest pain complaint basic chest pain workup initiated in ER. Vital signs stable. Nonfocal exam. Chest xray and EKG unremarkable. CBC/Chem/Mg/Trop/DDimer/ProBNP performed and overall were also unremarkable. Patient received Phenergan IM for nausea. Chest discomfort did not return while he was in the ER. Unable to get IV established/unable to give fluid bolus. PO Protonix ordered. Discussed observation with telemetry monitoring/repeat labs and patient declined. Given history/presentation/exam/labs do not suspect that patient's illness is likely due to cardiac ischemia but instead appears to be consistent with a viral illness/gastroenteritis. Precautions reviewed. To follow up as needed if problems/changes develop. Patient agreeable with plan. Departure - Departure Time of Disposition: 22:31 Disposition: Home, Self-Care 01 Condition: Good Clinical Impression: Gastroenteritis - Discharge Information *PRESCRIPTION DRUG MONITORING PROGRAM REVIEWED*: Not Applicable *COPY OF PRESCRIPTION DRUG MONITORING REPORT IN PATIENT RUPERTO: Not Applicable Prescriptions: Metoprolol Succinate [Toprol XL 50mg] 50 mg PO DAILY #30 tab.er Ondansetron [Zofran ODT] 4 mg PO Q6H PRN #15 tab.dis PRN Reason: Nausea Referrals: PCP,None [Primary Care Provider] - Forms: ED Department Discharge, ED Return to Work/School Form Additional Instructions: See how your symptoms are over the next 24 hours. Follow up as needed if you have new/worsening problems. As discussed, this seems to behave more like a virus based on your history. Cannot rule out food-related illness. Take the Zofran as needed for nausea. Sepsis Event Note (ED) - Evaluation Sepsis Screening Result: No Definite Risk - Focused Exam Vital Signs: Vital Signs Temp Pulse Resp BP Pulse Ox 11/10/20 22:36 36.6 C 89 15 122/83 98 11/10/20 22:00 91 13 144/97 H 97 11/10/20 21:31 36.5 C 95 14 135/88 98 11/10/20 21:30 94 12 135/88 99 11/10/20 21:15 80 14 145/79 H 98 - My Orders Last 24 Hours: My Active Orders 11/10/20 21:12 EKG Documentation Completion [RC] ASDIRECTED EKG Documentation Completion [RC] STAT 11/10/20 21:13 Chest 1V Frontal [CR] Stat - Assessment/Plan Last 24 Hours: My Active Orders 11/10/20 21:12 EKG Documentation Completion [RC] ASDIRECTED EKG Documentation Completion [RC] STAT 11/10/20 21:13 Chest 1V Frontal [CR] Stat
[2020-11-10 22:37] VITALS: BP 122/83; PULSE 89
[2020-11-10] MEDS: Pantoprazole 40 MG Tab.CR PO ONE (22:47)
[2020-11-10] MEDS: GI Cocktail Oral Solution 30 ML PO ONE (22:50)
== END 2020-11-10 22:50 | disposition home or self-care (01) ==
LOC: LL.ED 20:59
DX: K52.9 Noninfective gastroenteritis and colitis, unspecified (principal); I10 Essential (primary) hypertension; F41.9 Anxiety disorder, unspecified; F32.9 Major depressive disorder, single episode, unspecified; E11.319 Type 2 diabetes mellitus with unspecified diabetic retinopathy without macular edema; Z91.048 Other nonmedicinal substance allergy status; Z91.040 Latex allergy status; Z88.8 Allergy status to other drugs, medicaments and biological substances; Z79.84 Long term (current) use of oral hypoglycemic drugs; Z79.899 Other long term (current) drug therapy
CPT/HCPCS: 36415; 71045; 80053; 82550; 82553; 83605; 83735; 83880; 84443; 84484; 85025; 85379; 85610; 85730; 93005; 96372; 99285-25; A9270-GY; J2550

== ENCOUNTER 2021-06-18 11:03 | Emergency (ER) | payer OTHER, BC ==
[2021-06-18 11:12] VITALS: BP 143/88; PULSE 80
[2021-06-18] MEDS: Ketorolac 10 MG Tab PO ONE (11:26)
[2021-06-18] MEDS: Meclizine 25 MG Tab PO ONE (11:26)
[2021-06-18] MEDS: Ondansetron 4 MG Tab.DIS PO ONE (11:26)
[2021-06-18 11:49] LABS: ANION GAP 6.4 meq/L (7-15); CHLORIDE,CL 106 mmol/L (98-107); SODIUM,NA 138 mmol/L (136-145)
--- NOTE | 2021-06-18 12:34 | EDM.PDOC ---
ED HPI GENERAL MEDICAL PROBLEM - General Chief Complaint: ENT Problem Stated Complaint: DIZZINESS, PAINFUL AND DRAINING EARS Time Seen by Provider: 06/18/21 11:20 Source of Information: Reports: Patient History Limitations: Reports: No Limitations - History of Present Illness INITIAL COMMENTS - FREE TEXT/NARRATIVE: Patient comes to ER with complaint of continued ear pain that has been present for three weeks. Did not improve with earlier course antibiotic drops. Reports ongoing issues with ear plugs he uses at [facility] for hearing protection. Has tried a variety and all seem to cause irritation. Now has had issues with dizziness this past week. This morning vomited. Some loose stools. - Related Data Allergies Allergy/AdvReac Type Severity Reaction Status Date / Time gluten Allergy Rash Verified 11/10/20 21:26 latex Allergy Rash Verified 11/10/20 21:26 sumatriptan [From Imitrex] Allergy Hypertensio Verified 11/10/20 21:26 n sumatriptan succinate Allergy Hypertensio Verified 11/10/20 21:26 [From Imitrex] n Home Meds: Home Meds lisinopriL [Prinivil] 20 mg PO DAILY 05/10/14 [History] PARoxetine HCl [Paxil] 40 mg PO DAILY 01/22/19 [History] Pramipexole Di-HCl [Pramipexole Dihydrochloride] 0.125 mg PO BEDTIME 01/22/19 [History] clonazePAM [Clonazepam] 0.5 mg PO BEDTIME 01/22/19 [History] metFORMIN HCl [Glucophage] 1,000 mg PO DAILY 01/22/19 [History] Cholecalciferol (Vitamin D3) [Vitamin D] 25 mg PO DAILY 01/30/20 [History] Cyanocobalamin (Vitamin B12) [Vitamin B12] 1 tab PO DAILY 08/15/20 [History] Alogliptin Benzoate [Alogliptin] 25 mg PO DAILY 11/10/20 [History] Carbidopa/Levodopa [Carbidopa-Levo 25-100 MG ODT] 100 mg PO DAILY 11/10/20 [History] Magnesium Oxide [Magnesium] 500 mg PO DAILY 11/10/20 [History] Metoprolol Succinate [Toprol XL 50mg] 50 mg PO DAILY #30 tab.er 11/10/20 [Rx] Potassium Gluconate [Potassium] 99 mg PO DAILY 11/10/20 [History] Ciprofloxacin HCl/Dexameth [Ciprodex Otic Suspension] 7.5 ml OT BID #1 drops.susp 06/18/21 [Rx] Meclizine [Antivert] 25 mg PO Q6H PRN #30 tab 06/18/21 [Rx] Ondansetron [Zofran ODT] 4 mg PO Q6H PRN #15 tab.dis 06/18/21 [Rx] Past Medical History HEENT History: Reports: Allergic Rhinitis, Impaired Vision, Other (See Below) Other HEENT History: Diabetic retinopathy, OTC reading glasses. Cardiovascular History: Reports: High Cholesterol, Hypertension, Other (See Below) Other Cardiovascular History: History of hyperlipidemia with fatty liver by CT scan Respiratory History: Reports: Intubation, Previous, Sleep Apnea, Other (See Below) Other Respiratory History: Patient is currently compliant with CPAP with previous history of noncompliance. Gastrointestinal History: Reports: Cholelithiasis, Fatty Liver, GERD, Hiatal Hernia, PUD Other Gastrointestinal History: Note history of Monica fundoplication and cholecystectomy as below Genitourinary History: Reports: BPH, Prostate Disorder, Renal Calculus, Other (See Below) Other Genitourinary History: Bilateral moderate nephrolithiasis by CT scan with left-sided urolithiasis in March 2020 with spontaneous passage. Musculoskeletal History: Reports: Arthritis, Back Pain, Chronic, Neck Pain, Chronic, Osteoarthritis, Other (See Below) Other Musculoskeletal History: Positive BETHANIE in July 2016 Neurological History: Reports: Headaches, Chronic, Head Trauma, Migraines, Other (See Below) Other Neuro History: Refractory recurrent migraine/tension headaches, head contusion without concussion on 04/25/16 Psychiatric History: Reports: Addiction, Anxiety, Depression, Other (See Below) Other Psychiatric History: History of previous chronic narcotic use. Endocrine/Metabolic History: Reports: Diabetes, Type II, Other (See Below) Other Endocrine/Metabolic History: Hypocalcemia. Hematologic History: Reports: Blood Transfusion(s), Other (See Below) Other Hematologic History: Blood transfusions at time of Monica fundoplication Immunologic History: Reports: Other (See Below) Other Immunologic History: Note previous negative workup for positive BETHANIE Oncologic (Cancer) History: Reports: None Dermatologic History: Reports: Eczema, Venous Stasis Dermatitis Other Dermatologic History: Venous stasis dermatitis - Infectious Disease History Infectious Disease History: Reports: Chicken Pox - Past Surgical History Head Surgeries/Procedures: Reports: None HEENT Surgical History: Reports: None, Oral Surgery, Other (See Below) Other HEENT Surgeries/Procedures: Previous tooth extractions. Cardiovascular Surgical History: Reports: None Other Cardiovascular Surgeries/Procedures: Left leg injections/sclerotherapy for varicose veins in about 2010 Respiratory Surgical History: Reports: None GI Surgical History: Reports: Appendectomy, Cholecystectomy, Colonoscopy, EGD, Hernia, Inguinal, Monica Fundoplication, Other (See Below) Other GI Surgeries/Procedures: Monica fundoplication in September 2009. Appendectomy in 1990. Laparoscopic cholecystectomy with concomitant liver biopsy on 08/08/19. Last EGD on 07/26/2020 with negative work-up for foreign body with previous EGD and colonoscopy on 08/18/19 and additional previous EGD on 03/23/17, 2009 and in 2007. Previous colonoscopy in about 2012. Right inguinal hernia repair in 1988. Male Surgical History: Reports: Circumcision, Vasectomy, Other (See Below) Other Male Surgeries/Procedures: Circumcision as an . Vasectomy in about 1995. Endocrine Surgical History: Reports: None Neurological Surgical History: Reports: None Musculoskeletal Surgical History: Reports: Arthroscopic Knee, Arthroscopic Procedure, Shoulder Surgery, Other (See Below) Other Musculoskeletal Surgeries/Procedures:: Right-sided arthroscopic meniscal repair in 1986. Right laparoscopic shoulder surgery in October 2016. Oncologic Surgical History: Reports: None Dermatological Surgical History: Reports: None - Past Imaging History Past Imaging History: Reports: Angiography ([facility] in February 2015.), CAT Scan (CT of the chest on 08/15/2020 with CTA of the chest on 03/21/17. Last CT of the brain on 04/25/16 with multiple previous evaluations by history. CT of the abdomen and pelvis in March 2020 and on 04/21/11 and 07/30/07.), HIDA Scan (07/29/07), MRI (Negative MRI of the brain on 03/25/2020 with previous evaluations on 03/25/2020 and 09/27/2007.), Stress Testing (Cardiac stress test of unknown type at [facility] in February 2015.), Ultrasound (Gallbladder ultrasound on 07/26/17.), Upper GI X-Ray/Series (Upper GI with swallowing study on 02/25/12.), Venous Doppler (Left leg on 04/05/06.), Other (See Below) (EMG and nerve conduction studies in July 2016. Esophageal motility evaluation on 05/19/12.) Social & Family History - Family History HEENT: Reports: Impaired Vision, Other (See Below) Other HEENT Family History: Brother with IDDM and secondary diabetic retinopathy. Cardiac: Reports: CAD, Heart Murmur, AL, Stent, Syncope, Other (See Below) Other Cardiac Family History: History of early heart attacks in family, including brother in his 50s another brother in his 60s with brother also having a valve disorder with secondary syncopal episodes, which did require valve replacement at age 62. Both brothers did have PTCA/stents. Father with initial AL at age 50 with subsequent multiple MIs with no further procedures done however fatal AL at age 60. Respiratory: Reports: None GI: Reports: None : Reports: Dialysis, Renal Disease/Insufficiency Other Family History: Brother with IDDM and secondary diabetic nephropathy and current dialysis. OBGYN: Reports: None Musculoskeletal: Reports: None Neurological: Reports: Neuropathy, Diabetic, Neuropathy, Peripheral, Parkinson's, Other (See Below) Other Neurological Family History: Brother with diabetic neuropathy. Maternal aunt with Parkinson's disease Psychiatric: Reports: None Endocrine/Metabolic: Reports: Diabetes, type II, IDDM, Other (See Below) Other Endocrine/Metabolic Family History: Brother with IDDM and secondary complications as above. Hematologic: Reports: None Immunologic: Reports: None Dermatologic: Reports: None Oncologic: Reports: None - Tobacco Use Tobacco Use Status *Q: Never Tobacco User Second Hand Smoke Exposure: No - Caffeine Use Caffeine Use: Reports: Coffee Caffeine Use Comment: One cup of coffee per day, 2 sodas per day - Recreational Drug Use Recreational Drug Use: No - Living Situation & Occupation Living situation: Reports: (1989, 3 children), with Family () Occupation: Employed (Currently works in [employer] at [employer]. 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 Denies: Dental Pain, Eye Discharge, Hearing Loss, Nosebleed, Nose Pain, Rhinitis, Sinus Problem, Throat Pain, Throat Swelling, Vision Change Respiratory: Reports: No Symptoms Cardiovascular: Reports: No Symptoms GI/Abdominal: Reports: Diarrhea, Nausea, Vomiting : Reports: No Symptoms Musculoskeletal: Reports: No Symptoms Skin: Reports: No Symptoms Neurological: Reports: Dizziness. Denies: Confusion, Numbness, Paresthesia, Trouble Speaking, Weakness, Change in Speech Psychiatric: Reports: No Symptoms ED EXAM, GENERAL - Physical Exam Exam: See Below Exam Limited By: No Limitations General Appearance: Alert, WD/WN, No Apparent Distress Eye Exam: Bilateral Eye: EOMI, PERRL Ears: Hearing Grossly Normal, Other (Painful when ear examined/traction placed on ears. Unable to visualize TMs well. Both canals showed irritation/swelling/exudate. Canals not blocked by exudate.) Nose: No: Nasal Deformity, Nasal Swelling, Nasal Drainage Throat/Mouth: Normal Lips, Normal Voice, No Airway Compromise Head: Atraumatic, Normocephalic Neck: Supple, Non-Tender, Full Range of Motion Respiratory/Chest: No Respiratory Distress, Lungs Clear, Normal Breath Sounds, No Accessory Muscle Use Cardiovascular: Regular Rate, Rhythm, No Murmur GI/Abdominal: Soft, Non-Tender (Male) Exam: Deferred Rectal (Males) Exam: Deferred Extremities: Normal Capillary Refill Neurological: Alert, Oriented, Normal Cognition, Normal Gait Psychiatric: Normal Affect, Normal Mood Skin Exam: Warm, Dry, Intact, Normal Color Course - Vital Signs Last Recorded V/S: Last Vital Signs Temp 36.5 C 06/18/21 11:04 Pulse 80 06/18/21 11:04 Resp 20 06/18/21 11:04 BP 143/88 H 06/18/21 11:04 Pulse Ox 100 06/18/21 11:04 - Orders/Labs/Meds Orders: Active Orders 24 hr Category Date Time Status CULTURE EAR [RM] Stat Lab 06/18/21 12:23 Ordered Labs: Laboratory Tests 06/18/21 06/18/21 Range/Units 11:30 11:30 WBC 5.5 (4.0-10.2) K/uL RBC 5.07 (4.33-5.41) M/uL Hgb 15.1 (13.1-16.8) g/dL Hct 43.5 (39.0-49.0) % MCV 85.8 (84.0-98.0) fL MCH 29.8 (28.2-33.3) pg MCHC 34.7 (31.7-36.0) g/dL RDW 12.8 (11.2-14.1) % Plt Count 235 (150-350) K/uL Neut % (Auto) 45.5 (45.0-80.0) % Lymph % (Auto) 39.4 (10.0-50.0) % [place] % (Auto) 10.3 (2.0-14.0) % Eos % (Auto) 4.2 (0.0-5.0) % Baso % (Auto) 0.6 (0.0-2.0) % Neut # (Auto) 2.48 (1.40-7.00) K/uL Lymph # (Auto) 2.15 (0.50-3.50) K/uL [place] # (Auto) 0.56 (0.00-1.00) K/uL Eos # (Auto) 0.23 (0.00-0.50) K/uL Baso # (Auto) 0.03 (0.00-0.20) K/uL Sodium 138 (136-145) mmol/L Potassium 3.8 (3.5-5.1) mmol/L Chloride 106 (98-107) mmol/L Carbon Dioxide 25.6 (21.0-32.0) mmol/L Anion Gap 6.4 L (7-15) meq/L BUN 11 (7-18) mg/dL Creatinine 1.16 (0.51-1.17) mg/dL Est Cr Clr Drug Dosing 80.36 mL/min Estimated GFR (MDRD) > 60 mL/min Glucose 172 H (70-99) mg/dL Calcium 9.5 (8.5-10.1) mg/dL Magnesium 2.0 (1.8-2.4) mg/dL Total Bilirubin 0.6 (0.2-1.0) mg/dL AST 23 (15-37) U/L ALT 15 (12-78) U/L Alkaline Phosphatase 116 (46-116) IU/L Total Protein 7.4 (6.4-8.2) g/dL Albumin 4.3 (3.4-5.0) g/dL Meds: Medications Discontinued Medications Generic Name Dose Route Start Last Admin Trade Name Freq PRN Reason Stop Dose Admin Ketorolac Tromethamine 10 mg 06/18/21 11:21 06/18/21 11:26 Ketorolac 10 Mg Tab PO 06/18/21 11:22 10 mg ONETIME ONE Administration Meclizine HCl 25 mg 06/18/21 11:20 06/18/21 11:26 Meclizine 25 Mg Tab PO 06/18/21 11:21 25 mg ONETIME ONE Administration Ondansetron HCl 4 mg 06/18/21 11:20 06/18/21 11:26 Ondansetron 4 Mg Tab.Dis PO 06/18/21 11:21 4 mg ONETIME ONE Administration - Re-Assessments/Exams Free Text/Narrative Re-Assessment/Exam: 06/18/21 12:47 History/exam suggest bilateral otitis externa with associated vertigo. Cannot rule out concomitant viral illness however with the vomiting/loose stools patient noted today. Patient received Meclizine/Toradol/Zofran PO. Basic labs obtained. Nausea improved when rechecked. Labs overall unremarkable. Blood sugar elevated/patient type 2 DM. Plan at this time is to place patient on Cipro ear drops. He has an appointment tomorrow at [facility] which he is encouraged to keep so that he can be rechecked. Follow up with ENT is planned in July. May need earlier ENT appointment/systemic antibiotics if infection does not improve with this course of medication. Culture of material from ear canals performed. Patient encouraged to have drops sit a full 5 min after instillation before treating the second ear, again waiting 5 min after treating second ear before standing up. Departure - Departure Time of Disposition: 12:29 Disposition: Home, Self-Care 01 Condition: Good Clinical Impression: Otitis externa of both ears Qualifiers: Otitis externa type: unspecified type Chronicity: acute Qualified Code(s): H60.503 - Unspecified acute noninfective otitis externa, bilateral - Discharge Information *PRESCRIPTION DRUG MONITORING PROGRAM REVIEWED*: Not Applicable *COPY OF PRESCRIPTION DRUG MONITORING REPORT IN PATIENT RUPERTO: Not Applicable Prescriptions: Meclizine [Antivert] 25 mg PO Q6H PRN #30 tab PRN Reason: Dizziness Ciprofloxacin HCl/Dexameth [Ciprodex Otic Suspension] 7.5 ml OT BID #1 drops.susp Ondansetron [Zofran ODT] 4 mg PO Q6H PRN #15 tab.dis PRN Reason: Nausea Instructions: Otitis Externa Referrals: PCP,Unknown [Primary Care Provider] - Forms: ED Department Discharge Additional Instructions: Follow up tomorrow at your scheduled appointment. You may need referral to ENT for further evaluation if symptoms do not improve/may need oral antibiotics. Sepsis Event Note (ED) - Evaluation Sepsis Screening Result: No Definite Risk - Focused Exam Vital Signs: Vital Signs Temp Pulse Resp BP Pulse Ox 06/18/21 11:04 36.5 C 80 20 143/88 H 100 - My Orders Last 24 Hours: My Active Orders 06/18/21 12:23 CULTURE EAR [RM] Stat - Assessment/Plan Last 24 Hours: My Active Orders 06/18/21 12:23 CULTURE EAR [RM] Stat
== END 2021-06-18 12:53 | disposition home or self-care (01) ==
LOC: LL.ED 11:03
DX: H60.503 Unspecified acute noninfective otitis externa, bilateral (principal); E78.00 Pure hypercholesterolemia, unspecified; I10 Essential (primary) hypertension; K21.9 Gastro-esophageal reflux disease without esophagitis; E11.9 Type 2 diabetes mellitus without complications; Z91.018 Allergy to other foods; Z91.040 Latex allergy status; Z88.8 Allergy status to other drugs, medicaments and biological substances
CPT/HCPCS: 36415; 80053; 83735; 85025; 87070; 87186; 99284; A9270-GY

== ENCOUNTER 2021-10-03 08:31 | Emergency (ER) | payer OTHER, BC ==
[2021-10-03] MEDS ORDERED: Sodium Chloride 0.9% 10 ML Syringe FLUSH PRN (08:32)
[2021-10-03] MEDS ORDERED: HYDROmorphone 1 MG/ML Syringe IVPUSH ONE (08:33)
[2021-10-03] MEDS ORDERED: Prochlorperazine 10 MG/2 ML SDV IVPUSH ONE (08:33)
[2021-10-03] MEDS ORDERED: diphenhydrAMINE 50 MG/ML SDV IVPUSH ONE (08:34)
[2021-10-03] MEDS ORDERED: HYDROmorphone 1 MG/ML Syringe ONE (08:34)
[2021-10-03] MEDS ORDERED: Ketorolac 15 MG/ML SDV IVPUSH ONE (08:42)
[2021-10-03] MEDS ORDERED: Lactated Ringers 1,000 ML IV SCH (08:45)
[2021-10-03] MEDS ORDERED: Iopamidol 755 Mg/ML 100 ML Bottle IVPUSH STA (09:05)
--- NOTE | 2021-10-03 09:14 | EDM.PDOC ---
<Chad Delgado W - Last Filed: 10/03/21 09:00> ED HPI GENERAL MEDICAL PROBLEM - General Chief Complaint: General Stated Complaint: neck pain, altered mental Time Seen by Provider: 10/03/21 08:38 Source of Information: Reports: Patient History Limitations: Reports: No Limitations - History of Present Illness INITIAL COMMENTS - FREE TEXT/NARRATIVE: Pt. presents to ER with complaints of headache and neck pain. Pt. states that the headache started last evening while at work. He states that after he got off his shift at [employer] last night, he went home and states that the discomfort got worse over time. He states that by this AM, he was experiencing severe pain/muscle spasm in his R posterolateral neck that radiates up into the side of his head/scalp. Denies any head trauma. States that he recently went to the chiropractor. Denies any numbness/tingling in extremities. No problems with speech or ambulation according to . Denies any acute vision loss or change. Pt. denies any fever or chills. No chest pain or shortness of breath. He complains of nausea. On arrival to ER, pt. requiring assistance to walk, yelling out in pain. He is writhing in pain, rocking back and forth forcefully in his bed, initially unable to answer questions. His actions inhibited an initial physical/neuro exam and nursing was having difficulty obtaining vitals/IV vascular access/draw blood. Pt. denies any cough or chest congestion. No recent illness. No ill contacts. - Related Data Allergies Allergy/AdvReac Type Severity Reaction Status Date / Time gluten Allergy Rash Verified 10/03/21 08:32 latex Allergy Rash Verified 10/03/21 08:32 sumatriptan [From Imitrex] Allergy Hypertensio Verified 10/03/21 08:32 n sumatriptan succinate Allergy Hypertensio Verified 10/03/21 08:32 [From Imitrex] n Home Meds: Home Meds lisinopriL [Prinivil] 20 mg PO DAILY 05/10/14 [History] PARoxetine HCl [Paxil] 40 mg PO DAILY 01/22/19 [History] Pramipexole Di-HCl [Pramipexole Dihydrochloride] 0.125 mg PO BEDTIME 01/22/19 [History] metFORMIN HCl [Glucophage] 1,000 mg PO DAILY 01/22/19 [History] Cholecalciferol (Vitamin D3) [Vitamin D] 25 mg PO DAILY 01/30/20 [History] Cyanocobalamin (Vitamin B12) [Vitamin B12] 1 tab PO DAILY 08/15/20 [History] Alogliptin Benzoate [Alogliptin] 25 mg PO DAILY 11/10/20 [History] Carbidopa/Levodopa [Carbidopa-Levo 25-100 MG ODT] 100 mg PO DAILY 11/10/20 [History] Magnesium Oxide [Magnesium] 500 mg PO DAILY 11/10/20 [History] Cyanocobalamin (Vitamin B12) [Vitamin B12] 1,000 mcg PO DAILY 10/03/21 [History] Metoprolol Succinate [Toprol XL] 25 mg PO DAILY 10/03/21 [History] Past Medical History HEENT History: Reports: Allergic Rhinitis, Impaired Vision, Other (See Below) Other HEENT History: Diabetic retinopathy, OTC reading glasses. Cardiovascular History: Reports: High Cholesterol, Hypertension, Other (See Below) Other Cardiovascular History: History of hyperlipidemia with fatty liver by CT scan Respiratory History: Reports: Intubation, Previous, Sleep Apnea, Other (See Below) Other Respiratory History: Patient is currently compliant with CPAP with previous history of noncompliance. Gastrointestinal History: Reports: Cholelithiasis, Fatty Liver, GERD, Hiatal Hernia, PUD Other Gastrointestinal History: Note history of Monica fundoplication and cholecystectomy as below Genitourinary History: Reports: BPH, Prostate Disorder, Renal Calculus, Other (See Below) Other Genitourinary History: Bilateral moderate nephrolithiasis by CT scan with left-sided urolithiasis in March 2020 with spontaneous passage. Musculoskeletal History: Reports: Arthritis, Back Pain, Chronic, Neck Pain, Chronic, Osteoarthritis, Other (See Below) Other Musculoskeletal History: Positive BETHANIE in July 2016 Neurological History: Reports: Headaches, Chronic, Head Trauma, Migraines, Other (See Below) Other Neuro History: Refractory recurrent migraine/tension headaches, head contusion without concussion on 04/25/16 Psychiatric History: Reports: Addiction, Anxiety, Depression, Other (See Below) Other Psychiatric History: History of previous chronic narcotic use. Endocrine/Metabolic History: Reports: Diabetes, Type II, Other (See Below) Other Endocrine/Metabolic History: Hypocalcemia. Hematologic History: Reports: Blood Transfusion(s), Other (See Below) Other Hematologic History: Blood transfusions at time of Monica fundoplication Immunologic History: Reports: Other (See Below) Other Immunologic History: Note previous negative workup for positive BETHANIE Oncologic (Cancer) History: Reports: None Dermatologic History: Reports: Eczema, Venous Stasis Dermatitis Other Dermatologic History: Venous stasis dermatitis - Infectious Disease History Infectious Disease History: Reports: Chicken Pox - Past Surgical History Head Surgeries/Procedures: Reports: None HEENT Surgical History: Reports: None, Oral Surgery, Other (See Below) Other HEENT Surgeries/Procedures: Previous tooth extractions. Cardiovascular Surgical History: Reports: None Other Cardiovascular Surgeries/Procedures: Left leg injections/sclerotherapy for varicose veins in about 2010 Respiratory Surgical History: Reports: None GI Surgical History: Reports: Appendectomy, Cholecystectomy, Colonoscopy, EGD, Hernia, Inguinal, Monica Fundoplication, Other (See Below) Other GI Surgeries/Procedures: Monica fundoplication in September 2009. Appendectomy in 1990. Laparoscopic cholecystectomy with concomitant liver biopsy on 08/08/19. Last EGD on 07/26/2020 with negative work-up for foreign body with previous EGD and colonoscopy on 08/18/19 and additional previous EGD on 03/23/17, 2009 and in 2007. Previous colonoscopy in about 2012. Right inguinal hernia repair in 1988. Male Surgical History: Reports: Circumcision, Vasectomy, Other (See Below) Other Male Surgeries/Procedures: Circumcision as an infant. Vasectomy in about 1995. Endocrine Surgical History: Reports: None Neurological Surgical History: Reports: None Musculoskeletal Surgical History: Reports: Arthroscopic Knee, Arthroscopic Procedure, Shoulder Surgery, Other (See Below) Other Musculoskeletal Surgeries/Procedures:: Right-sided arthroscopic meniscal repair in 1986. Right laparoscopic shoulder surgery in October 2016. Oncologic Surgical History: Reports: None Dermatological Surgical History: Reports: None - Past Imaging History Past Imaging History: Reports: Angiography ([facility] in [place] in February 2015.), CAT Scan (CT of the chest on 08/15/2020 with CTA of the chest on 03/21/17. [address] of the brain on 04/25/16 with multiple previous evaluations by history. CT of the abdomen and pelvis in March 2020 and on 04/21/11 and 07/30/07.), HIDA Scan (07/29/07), MRI (Negative MRI of the brain on 03/25/2020 with previous evaluations on 03/25/2020 and 09/27/2007.), Stress Testing (Cardiac stress test of unknown type at [facility] in [place] in February 2015.), Ultrasound (Gallbladder ultrasound on 07/26/17.), Upper GI X-Ray/Series (Upper GI with swallowing study on 02/25/12.), Venous Doppler (Left leg on 04/05/06.), Other (See Below) (EMG and nerve conduction studies in July 2016. Esophageal motility evaluation on 05/19/12.) Social & Family History - Family History HEENT: Reports: Impaired Vision, Other (See Below) Other HEENT Family History: Brother with IDDM and secondary diabetic retinopa thy. Cardiac: Reports: CAD, Heart Murmur, PA, Stent, Syncope, Other (See Below) Other Cardiac Family History: History of early heart attacks in family, including brother in his 50s another brother in his 60s with brother also having a valve disorder with secondary syncopal episodes, which did require valve replacement at age 62. Both brothers did have PTCA/stents. Father with initial PA at age 50 with subsequent multiple MIs with no further procedures done however fatal PA at age 60. Respiratory: Reports: None GI: Reports: None : Reports: Dialysis, Renal Disease/Insufficiency Other Family History: Brother with IDDM and secondary diabetic nephropathy and current dialysis. OBGYN: Reports: None Musculoskeletal: Reports: None Neurological: Reports: Neuropathy, Diabetic, Neuropathy, Peripheral, Parkinson's, Other (See Below) Other Neurological Family History: Brother with diabetic neuropathy. Maternal aunt with Parkinson's disease Psychiatric: Reports: None Endocrine/Metabolic: Reports: Diabetes, type II, IDDM, Other (See Below) Other Endocrine/Metabolic Family History: Brother with IDDM and secondary complications as above. 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.) Departure - Departure Disposition: Home, Self-Care 01 Clinical Impression: Neck pain Migraine Qualifiers: Migraine type: with aura Status migrainosus presence: without status migrainosus Intractability: not intractable Qualified Code(s): G43.109 - Migraine with aura, not intractable, without status migrainosus - Discharge Information Instructions: Migraine Headache, [id number] Referrals: PCP,Unknown [Ordering Only Provider] - Forms: ED Department Discharge Additional Instructions: Testing today was negative for acute intracranial problem and /or medical problem You were given medication for sedation. Go home and rest with your CPAP machine. Follow up with neurologist about headaches, future medications and further evaluation. <BetoGrace M - Last Filed: 10/03/21 11:04> ED HPI GENERAL MEDICAL PROBLEM - General Source of Information: Reports: Family, Other ( at 9:15 when took over patient at change of shift) History Limitations: Reports: Other (at change of shift patient had alerady been medicated and was sedated prior to any exam. ) - History of Present Illness INITIAL COMMENTS - FREE TEXT/NARRATIVE: Note that per the , the patient frequently gets migraines in this area of the head, and has chronic neck problems. He asked her to massage it last night to help. Did not take any medications for it. He had chiropractic manipulation of his neck as a maintenance appointment on 10/01. At about 3:30 am today, he left the bedroom with continued headache and neckache but wanted to left her rest. She slept and when she awoke around 7 am found him to be struggling with word finding, weak right arm and leg and confusion. Brought him to the ED with some difficulty with ambulation and following commands. Subjective analysis of the patient as above per previous provider as patient is sedated with medication at time of this author meeting patient Onset Date: 10/02/21 Duration: Getting Worse Location: Reports: Head, Neck Social & Family History - Tobacco Use Tobacco Use Status *Q: Never Tobacco User - Alcohol Use Alcohol Use History: No Alcohol Use in Last Twelve Months: No - Recreational Drug Use Recreational Drug Use: No Drug Use in Last 12 Months: No ED ROS GENERAL - Review of Systems Review Of Systems: See Below Constitutional: Reports: No Symptoms. Denies: Fever, Chills, Weakness, Fatigue HEENT: Reports: No Symptoms. Denies: Dental Pain, Nose Pain, Rhinitis, Sinus Problem, Vision Change Cardiovascular: Reports: No Symptoms. Denies: Chest Pain, Dyspnea on Exertion, Edema Endocrine: Reports: No Symptoms GI/Abdominal: Reports: No Symptoms. Denies: Abdominal Pain, Diarrhea, Nausea, Vomiting : Reports: No Symptoms. Denies: Dysuria, Frequency Musculoskeletal: Reports: Neck Pain (chronically) Skin: Reports: No Symptoms Neurological: Reports: Confusion, Trouble Speaking, Difficulty Walking, Weakness (right arm and leg) Psychiatric: Reports: Agitation Hematologic/Lymphatic: Reports: No Symptoms Immunologic: Reports: No Symptoms ED EXAM, GENERAL - Physical Exam Exam: See Below Exam Limited By: Other (has been medicated, but follows commands) General Appearance: Alert Eye Exam: Bilateral Eye: EOMI, Normal Inspection, PERRL, Other (no nystagmus) Ears: Normal External Exam, Normal Canal, Hearing Grossly Normal, Normal TMs Nose: Normal Inspection, Normal Mucosa Throat/Mouth: Normal Inspection, Normal Teeth, Other (midl dry mucous membranes) Head: Atraumatic, Normocephalic Neck: Tender Lateral (right trapezius area and insertion of rotator cuff anteriorly. no lesions or rashes. no notable spasm, normal rom. ). No: Lymphadenopathy (L), Lymphadenopathy (R) Respiratory/Chest: No Respiratory Distress, Lungs Clear, Normal Breath Sounds, No Accessory Muscle Use. No: Wheezing Cardiovascular: Normal Peripheral Pulses, Regular Rate, Rhythm, No Edema GI/Abdominal: Normal Bowel Sounds, Soft, Non-Tender, No Organomegaly Extremities: Normal Inspection, Normal Range of Motion, Non-Tender, No Pedal Edema Neurological: Alert, Oriented, CN II-XII Intact, Normal Cognition, No Motor/Sensory Deficits (negative pronator drift, normal gore stitcher strength bilaterally. normal rom of the upper and lower extermities without deficit. normal heel to robin. normal speech, slightly slowed responses probable due to mediations) #1 Interpretation EKG Date: 10/03/21 Time: 10:09 Rhythm: NSR Rate (Beats/Min): 54 (bradycardia chronic) [place]: Normal P-Wave: Present QRS: Normal ST-T: Normal Comparison: No Change Course - Vital Signs Last Recorded V/S: Last Vital Signs Temp 36.3 C 10/03/21 08:31 Pulse 67 10/03/21 09:45 Resp 12 10/03/21 09:45 BP 123/74 10/03/21 09:45 Pulse Ox 97 10/03/21 09:45 - Orders/Labs/Meds Orders: Active Orders 24 hr Category Date Time Status EKG Documentation Completion [RC] ASDIRECTED Care 10/03/21 09:15 Active Peripheral IV Care [RC] . DIRECTED Care 10/03/21 08:33 Active Ang Head [CT] Stat Exams 10/03/21 08:58 Taken CTA Neck W & W/O Contrast [Ang Neck] [CT] Stat Exams 10/03/21 08:58 Taken Head wo Cont [CT] Stat Exams 10/03/21 08:57 Taken Lactated Ringers [Ringers, Lactated] 1,000 ml Med 10/03/21 08:45 Active IV ASDIRECTED Sodium Chloride 0.9% [Saline Flush] Med 10/03/21 08:32 Active 10 ml FLUSH ASDIRECTED PRN Peripheral IV Insertion Adult [OM.PC] Routine Oth 10/03/21 08:33 Ordered EKG 12 Lead [EK] Stat Ther 10/03/21 09:15 Ordered Medication Orders Lactated Ringer's (Ringers, Lactated) 1,000 mls @ 500 mls/hr IV ASDIRECTED WILLY Last Admin: 10/03/21 08:44 Dose: 500 mls/hr Documented by: THAD Sodium Chloride (Sodium Chloride 0.9% 10 Ml Syringe) 10 ml FLUSH ASDIRECTED PRN PRN Reason: Keep Vein Open Labs: Laboratory Tests 10/03/21 10/03/21 10/03/21 Range/Units 09:20 09:20 09:20 WBC 6.5 (4.0-10.2) K/uL RBC 5.63 H (4.33-5.41) M/uL Hgb 16.5 (13.1-16.8) g/dL Hct 48.4 (39.0-49.0) % MCV 86.0 (84.0-98.0) fL MCH 29.3 (28.2-33.3) pg MCHC 34.1 (31.7-36.0) g/dL RDW 12.9 (11.2-14.1) % Plt Count 209 (150-350) K/uL Neut % (Auto) 46.6 (45.0-80.0) % Lymph % (Auto) 40.2 (10.0-50.0) % [place] % (Auto) 9.8 (2.0-14.0) % Eos % (Auto) 3.1 (0.0-5.0) % Baso % (Auto) 0.3 (0.0-2.0) % Neut # (Auto) 3.04 (1.40-7.00) K/uL Lymph # (Auto) 2.62 (0.50-3.50) K/uL [place] # (Auto) 0.64 (0.00-1.00) K/uL Eos # (Auto) 0.20 (0.00-0.50) K/uL Baso # (Auto) 0.02 (0.00-0.20) K/uL PT 9.9 (9.5-12.0) SEC INR 1.0 APTT (24.5-32.8) SEC Sodium 139 (136-145) mmol/L Potassium 4.2 (3.5-5.1) mmol/L Chloride 103 (98-107) mmol/L Carbon Dioxide 22.1 (21.0-32.0) mmol/L Anion Gap 13.9 (7-15) meq/L BUN 13 (7-18) mg/dL Creatinine 0.98 (0.51-1.17) mg/dL Est Cr Clr Drug Dosing 93.99 mL/min Estimated GFR (MDRD) > 60 mL/min Glucose 230 H (70-99) mg/dL Calcium 10.1 (8.5-10.1) mg/dL Phosphorus 2.6 (2.6-4.7) mg/dL Magnesium 2.0 (1.8-2.4) mg/dL Total Bilirubin 1.0 (0.2-1.0) mg/dL AST 23 (15-37) U/L ALT 45 (12-78) U/L Alkaline Phosphatase 112 (46-116) IU/L Troponin I High Sens 15 (<=76) ng/L C-Reactive Protein < 0.2 (<=0.9) mg/dL Total Protein 7.5 (6.4-8.2) g/dL Albumin 4.5 (3.4-5.0) g/dL TSH, Ultra Sensitive 1.580 (0.358-3.740) mIU/mL Ethyl Alcohol 0.000 (0.000-0.080) g/dL 10/03/21 Range/Units 09:20 WBC (4.0-10.2) K/uL RBC (4.33-5.41) M/uL Hgb (13.1-16.8) g/dL Hct (39.0-49.0) % MCV (84.0-98.0) fL MCH (28.2-33.3) pg MCHC (31.7-36.0) g/dL RDW (11.2-14.1) % Plt Count (150-350) K/uL Neut % (Auto) (45.0-80.0) % Lymph % (Auto) (10.0-50.0) % [place] % (Auto) (2.0-14.0) % Eos % (Auto) (0.0-5.0) % Baso % (Auto) (0.0-2.0) % Neut # (Auto) (1.40-7.00) K/uL Lymph # (Auto) (0.50-3.50) K/uL [place] # (Auto) (0.00-1.00) K/uL Eos # (Auto) (0.00-0.50) K/uL Baso # (Auto) (0.00-0.20) K/uL PT (9.5-12.0) SEC INR APTT 23.2 L (24.5-32.8) SEC Sodium (136-145) mmol/L Potassium (3.5-5.1) mmol/L Chloride (98-107) mmol/L Carbon Dioxide (21.0-32.0) mmol/L Anion Gap (7-15) meq/L BUN (7-18) mg/dL Creatinine (0.51-1.17) mg/dL Est Cr Clr Drug Dosing mL/min Estimated GFR (MDRD) mL/min Glucose (70-99) mg/dL Calcium (8.5-10.1) mg/dL Phosphorus (2.6-4.7) mg/dL Magnesium (1.8-2.4) mg/dL Total Bilirubin (0.2-1.0) mg/dL AST (15-37) U/L ALT (12-78) U/L Alkaline Phosphatase (46-116) IU/L Troponin I High Sens (<=76) ng/L C-Reactive Protein (<=0.9) mg/dL Total Protein (6.4-8.2) g/dL Albumin (3.4-5.0) g/dL TSH, Ultra Sensitive (0.358-3.740) mIU/mL Ethyl Alcohol (0.000-0.080) g/dL Meds: Medications Generic Name Dose Route Start Last Admin Trade Name F[place]agi PRN Reason Stop Dose Admin Lactated Ringer's 1,000 mls @ 500 mls/hr 10/03/21 08:45 10/03/21 08:44 Ringers, Lactated IV 500 mls/hr ASDIRECTED WILLY Administration Sodium Chloride 10 ml 10/03/21 08:32 Sodium Chloride 0.9% 10 Ml Syringe FLUSH ASDIRECTED PRN Keep Vein Open Discontinued Medications Generic Name Dose Route Start Last Admin Trade Name Ama PRN Reason Stop Dose Admin Diphenhydramine HCl 50 mg 10/03/21 08:34 10/03/21 08:38 Diphenhydramine 50 Mg/Ml Sdv IVPUSH 10/03/21 08:35 50 mg ONETIME ONE Administration Hydromorphone HCl 1 mg 10/03/21 08:33 10/03/21 08:37 Hydromorphone 1 Mg/Ml Syringe IVPUSH 10/03/21 08:34 1 mg ONETIME ONE Administration Hydromorphone HCl Confirm 10/03/21 08:34 10/03/21 08:54 Hydromorphone 1 Mg/Ml Syringe Administered 10/03/21 08:35 Not Given Dose 1 mg .ROUTE .STK-MED ONE Iopamidol 100 ml 10/03/21 09:05 10/03/21 10:02 Iopamidol 755 Mg/Ml 100 Ml Bottle IVPUSH 10/03/21 09:06 100 ml ONETIME STA Administration Ketorolac Tromethamine 15 mg 10/03/21 08:42 10/03/21 08:46 Ketorolac 15 Mg/Ml Sdv IVPUSH 10/03/21 08:43 15 mg ONETIME ONE Administration Prochlorperazine Edisylate 10 mg 10/03/21 08:33 10/03/21 08:39 Prochlorperazine 10 Mg/2 Ml Sdv IVPUSH 10/03/21 08:34 10 mg ONETIME ONE Administration - Radiology Interpretation Free Text/Narrative:: ct head noncontrast, ct angio head and neck with contrast no acute intracranial abnormality identified on thenon contrast ct. CTA head and neck are limited by poor contrast bolus and technique, no large vessel occlusion identified. NO gross evidence for high grade stenosis. Proximal cervical vertebral arteries are poorly evaluated due to boss hardening from shoulders interpreted by radiologist and communicated to Chad Delgado WEALTH MANAGEMENT ADVISOR - Re-Assessments/Exams Free Text/Narrative Re-Assessment/Exam: 10/03/21 09:35 care of patient taken over after medication and patient at CT. Had been medicated with those noted and much more comfortable. Had forceful manipulation of the neck previous to start of headache and new onset neuro symptoms. CTs ordered to include angios with concern for possible dissection, labs, ekg. Had recent cardiac cath in the last year that was normal " clean" per the . Diabetic but blood glucose better now that he is working at [employer]. [facility] 10/03/21 09:55 able to perform exam on patient. he is sleepy but arousable to voice. follows commands well. No neurological deficit, is present and admits to back to baseline. Falls asleep easily. Due to medications was given O2 via nasal cannula. Is snoring but family states this is typical for him. States he feels better and that the headache was a typical headache for him. 10/03/21 10:28 verbal report from radiology. no acute changes. discussed with family. Ad vised close follow up with neurology as he had a different headache and they may want to revisit treatments. has been on prophylactic medication in the past, not currently. Patient has a cpap at home and will use it. History of sleep apnea. Normal neuro exam. No deficits Departure - Departure Time of Disposition: 10:30 Condition: Good Sepsis Event Note (ED) - Focused Exam Vital Signs: Vital Signs Temp Pulse Resp BP Pulse Ox 10/03/21 09:45 67 12 123/74 97 10/03/21 09:30 68 11 L 137/73 91 L 10/03/21 08:52 59 L 9 L 154/92 H 94 L 10/03/21 08:31 36.3 C 86 12 160/133 H 100
[2021-10-03 09:57] LABS: ANION GAP 13.9 meq/L (7-15); CHLORIDE,CL 103 mmol/L (98-107); SODIUM,NA 139 mmol/L (136-145)
[2021-10-03 20:27] VITALS: BP 119/68; PULSE 56
== END 2021-10-03 10:50 | disposition home or self-care (01) ==
LOC: LL.ED 08:31
DX: G43.109 Migraine with aura, not intractable, without status migrainosus (principal); M54.2 Cervicalgia; K21.9 Gastro-esophageal reflux disease without esophagitis; E78.00 Pure hypercholesterolemia, unspecified; I10 Essential (primary) hypertension; N40.0 Benign prostatic hyperplasia without lower urinary tract symptoms; E11.9 Type 2 diabetes mellitus without complications; Z79.899 Other long term (current) drug therapy; Z79.84 Long term (current) use of oral hypoglycemic drugs; Z91.040 Latex allergy status; Z91.018 Allergy to other foods; Z88.8 Allergy status to other drugs, medicaments and biological substances
CPT/HCPCS: 36415; 70450; 70496; 70498; 80053; 80307; 83735; 84100; 84443; 84484; 85025; 85610; 85730; 86140; 93005; 96374; 96375; 99283; J0780; J1170; J1200; J1885; J7120; Q9967

== ENCOUNTER 2021-12-15 11:06 | Emergency (ER) | payer OTHER, BC ==
[2021-12-15] MEDS ORDERED: cefTRIAXone 2 GM in Sodium Chloride 0.9% 100 ML IV ONE (11:45)
[2021-12-15] MEDS ORDERED: Sodium Chloride 0.9% 1,000 ML IV ONE (12:14)
[2021-12-15 12:15] LABS: RESPIRATORY SYNCYTIAL VIR NAA NEGATIVE (NEGATIVE)
[2021-12-15] MEDS ORDERED: Albuterol 6.7 GM Inhaler INH ONE (12:15)
[2021-12-15 12:16] LABS: ANION GAP 11.9 meq/L (7-15); CHLORIDE,CL 101 mmol/L (98-107); SODIUM,NA 136 mmol/L (136-145)
[2021-12-15 12:17] LABS: CORONAVIRUS COVID-19 NAA POSITIVE (NEGATIVE)
[2021-12-15] MEDS ORDERED: Dexamethasone 10 MG/ML SDV IVPUSH ONE (12:18)
[2021-12-15] MEDS ORDERED: Albuterol/Ipratropium 4 GM Inhalation Spray INH ONE (12:19)
[2021-12-15] MEDS ORDERED: Loperamide 2 MG Tab PO ONE (14:15)
[2021-12-15 16:05] VITALS: BP 111/68; PULSE 72
== END 2021-12-15 14:45 | disposition home or self-care (01) ==
LOC: LL.ED 11:06
DX: U07.1 COVID-19 (principal); E83.42 Hypomagnesemia; I10 Essential (primary) hypertension; E11.9 Type 2 diabetes mellitus without complications; Z88.8 Allergy status to other drugs, medicaments and biological substances; Z91.018 Allergy to other foods; Z88.6 Allergy status to analgesic agent; Z91.040 Latex allergy status; Z79.84 Long term (current) use of oral hypoglycemic drugs; Z79.899 Other long term (current) drug therapy
CPT/HCPCS: 0241U; 36415; 71045; 80053; 82550; 83735; 84484; 85025; 85379; 93005; 96365; 96375; 99285-25; A9270-GY; J1100; J3475; J7030

== ENCOUNTER 2022-12-25 02:34 | Emergency (ER) | payer OTHER ==
[2022-12-25 02:44] VITALS: PULSE 74
[2022-12-25] MEDS ORDERED: HYDROmorphone 1 MG/ML Syringe IM ONE (03:03)
[2022-12-25] MEDS ORDERED: Ondansetron 4 MG Tab.DIS PO PRN (03:03)
[2022-12-25] MEDS ORDERED: Silver Sulfadiazine 1% Crm 20 GM Tube TOP ONE (03:38)
[2022-12-25 04:02] VITALS: BP 138/85
== END 2022-12-25 04:03 | disposition home or self-care (01) ==
LOC: LL.ED 02:34
DX: T22.011A Burn of unspecified degree of right forearm, initial encounter (principal); I10 Essential (primary) hypertension; E11.9 Type 2 diabetes mellitus without complications; Z88.8 Allergy status to other drugs, medicaments and biological substances; Z91.040 Latex allergy status; Z88.6 Allergy status to analgesic agent; Z79.899 Other long term (current) drug therapy; Z79.84 Long term (current) use of oral hypoglycemic drugs
CPT/HCPCS: 16000; 96372; 99283; A9270-GY; J1170

== ENCOUNTER 2023-01-10 17:39 | Emergency (ER) | payer OTHER, BC ==
[2023-01-10] MEDS ORDERED: Sodium Chloride 0.9% 10 ML Syringe FLUSH PRN (17:46)
[2023-01-10] MEDS ORDERED: Ondansetron 4 MG/2 ML SDV IVPUSH ONE (17:47)
[2023-01-10] MEDS ORDERED: cefTRIAXone 1 GM in Sodium Chloride 0.9% 100 ML IV ONE (17:47)
[2023-01-10] MEDS ORDERED: Ketorolac 30 MG/ML SDV IVPUSH ONE (17:47)
[2023-01-10] MEDS ORDERED: Morphine 2 MG/ML SYRINGE IVPUSH ONE (17:48)
[2023-01-10 18:27] LABS: ANION GAP 11.7 meq/L (7-15); CHLORIDE,CL 104 mmol/L (98-107); SODIUM,NA 139 mmol/L (136-145)
[2023-01-10 18:29] LABS: ESTIMATED GFR 100 mL/min (>=60)
[2023-01-10] MEDS ORDERED: HYDROmorphone 0.5 MG/0.5 ML Syringe IM ONE (18:41)
[2023-01-10] MEDS ORDERED: HYDROmorphone 0.5 MG/0.5 ML Syringe IVPUSH ONE (19:13)
[2023-01-10] MEDS ORDERED: Iopamidol 612 MG/ML 100 ML Bottle IVPUSH STA (19:33)
[2023-01-10] MEDS ORDERED: Sodium Chloride 0.9% 1,000 ML IV ONE (20:16)
[2023-01-10] MEDS ORDERED: Bupivacaine 0.5% 10 ML SDV INJECT ONE (20:39)
[2023-01-10] MEDS ORDERED: Lidocaine 1% 5 ML VIAL INJECT ONE (20:40)
[2023-01-10] MEDS ORDERED: Take Home: Acetaminophen/HYDROcodone 325-5 MG, 5 Tab Pack PO ONE (21:07)
[2023-01-10 21:44] VITALS: BP 147/91; PULSE 67
== END 2023-01-10 21:52 | disposition home or self-care (01) ==
LOC: LL.ED 17:39
DX: K08.89 Other specified disorders of teeth and supporting structures (principal); I10 Essential (primary) hypertension; E11.9 Type 2 diabetes mellitus without complications; Z88.8 Allergy status to other drugs, medicaments and biological substances; Z91.018 Allergy to other foods; Z88.6 Allergy status to analgesic agent; Z91.040 Latex allergy status; Z79.899 Other long term (current) drug therapy; Z79.4 Long term (current) use of insulin; Z98.890 Other specified postprocedural states
CPT/HCPCS: 36415; 70487; 80048; 85025; 96361; 96365; 96375; 99283; 99283-25; A9270-GY; J0696; J1170; J1885; J2270; J2405; J3490; J7030; Q9967

== ENCOUNTER 2023-07-08 23:01 | Emergency (ER) | payer OTHER, BC ==
[2023-07-08] MEDS ORDERED: Take Home: traMADol 50 MG, 4 Tab Pack PO ONE (23:55)
[2023-07-08] MEDS ORDERED: traMADol 50 MG Tab PO ONE (23:56)
[2023-07-09 00:25] VITALS: BP 127/86; PULSE 65
== END 2023-07-09 00:18 | disposition home or self-care (01) ==
LOC: LL.ED 23:01
DX: S69.92XA Unspecified injury of left wrist, hand and finger(s), initial encounter (principal); I10 Essential (primary) hypertension; E11.9 Type 2 diabetes mellitus without complications; Z88.8 Allergy status to other drugs, medicaments and biological substances; Z91.018 Allergy to other foods; Z88.6 Allergy status to analgesic agent; Z91.040 Latex allergy status; Z79.899 Other long term (current) drug therapy; Z79.4 Long term (current) use of insulin; X50.1XXA Overexertion from prolonged static or awkward postures, initial encounter
CPT/HCPCS: 73090-LT; 73120-LT; 99283; A9270-GY

== ENCOUNTER 2024-04-18 10:10 | Emergency (ER) | payer OTHER ==
[2024-04-18] MEDS ORDERED: Sodium Chloride 0.9% 10 ML Syringe FLUSH PRN (10:31)
[2024-04-18 10:37] LABS: BASOPHILS ABSOLUTE AUTO 0.05 K/uL (0.00-0.20); BASOPHILS PERCENT AUTO 1.1 % (0.0-2.0); EOSINOPHILS ABSOLUTE AUTO 0.22 K/uL (0.00-0.50); EOSINOPHILS PERCENT AUTO 4.8 % (0.0-5.0); HEMATOCRIT 51.1 % (39.0-49.0); HEMOGLOBIN 17.2 g/dL (13.1-16.8); MEAN CORPUSCULAR HEMOGLOBIN 29.8 pg (28.2-33.3); MEAN CORPUSCULAR HGB CONC 33.7 g/dL (31.7-36.0); MEAN CORPUSCULAR VOLUME 88.4 fL (84.0-98.0); MONOCYTES ABSOLUTE AUTO 0.45 K/uL (0.00-1.00); MONOCYTES PERCENT AUTO 9.8 % (2.0-14.0); NEUTROPHILS ABSOLUTE AUTO 2.25 K/uL (1.40-7.00); NEUTROPHILS PERCENT AUTO 49.3 % (45.0-80.0); PLATELET COUNT,PLT 207 K/uL (150-350); RED BLOOD CELL COUNT 5.78 M/uL (4.33-5.41); RED CELL DISTRIBUTION WIDTH 13.2 % (11.2-14.1); WHITE BLOOD CELL COUNT,WBC 4.6 K/uL (4.0-10.2)
[2024-04-18] MEDS: Acetaminophen 500 MG Tab PO ONE (10:39)
[2024-04-18 10:48] LABS: ALBUMIN 4.2 g/dL (3.4-5.0); ANION GAP 9.4 meq/L (7-15); BILIRUBIN TOTAL 0.8 mg/dL (0.2-1.0); CALCIUM 9.2 mg/dL (8.5-10.1); CARBON DIOXIDE,CO2 26.6 mmol/L (21.0-32.0); CREATININE 1.2 mg/dL (0.51-1.17); EST CRCL DRUG DOSING (CG) 74.91 mL/min; POTASSIUM,K 3.7 mmol/L (3.5-5.1)
[2024-04-18] MEDS: Ketorolac 30 MG/ML SDV IVPUSH ONE (11:03)
[2024-04-18 11:56] VITALS: BP 138/83; PULSE 66
== END 2024-04-18 11:32 | disposition home or self-care (01) ==
LOC: LL.ED 10:10
DX: R07.89 Other chest pain (principal); E11.9 Type 2 diabetes mellitus without complications; Z88.6 Allergy status to analgesic agent; Z91.018 Allergy to other foods; Z91.040 Latex allergy status; Z88.8 Allergy status to other drugs, medicaments and biological substances; Z79.899 Other long term (current) drug therapy; Z79.4 Long term (current) use of insulin; Z79.84 Long term (current) use of oral hypoglycemic drugs; Z86.19 Personal history of other infectious and parasitic diseases
CPT/HCPCS: 36415; 71045; 80053; 83690; 84484; 85025; 93005; 96374; 99285; A9270; J1885; 93010; 99284

== ENCOUNTER 2024-05-02 18:44 | Emergency (ER) | payer OTHER ==
[2024-05-02 18:52] VITALS: BP 131/80; PULSE 84
[2024-05-02 19:04] LABS: BASOPHILS ABSOLUTE AUTO 0.04 K/uL (0.00-0.20); BASOPHILS PERCENT AUTO 0.3 % (0.0-2.0); EOSINOPHILS ABSOLUTE AUTO 0.12 K/uL (0.00-0.50); HEMATOCRIT 45.7 % (39.0-49.0); HEMOGLOBIN 15.3 g/dL (13.1-16.8); LYMPHOCYTES ABSOLUTE AUTO 1.99 K/uL (0.50-3.50); LYMPHOCYTES PERCENT AUTO 17.1 % (10.0-50.0); MEAN CORPUSCULAR HEMOGLOBIN 30.1 pg (28.2-33.3); MEAN CORPUSCULAR HGB CONC 33.5 g/dL (31.7-36.0); MEAN CORPUSCULAR VOLUME 89.8 fL (84.0-98.0); MONOCYTES ABSOLUTE AUTO 0.87 K/uL (0.00-1.00); MONOCYTES PERCENT AUTO 7.5 % (2.0-14.0); NEUTROPHILS ABSOLUTE AUTO 8.61 K/uL (1.40-7.00); NEUTROPHILS PERCENT AUTO 74.1 % (45.0-80.0); PLATELET COUNT,PLT 175 K/uL (150-350); RED BLOOD CELL COUNT 5.09 M/uL (4.33-5.41); RED CELL DISTRIBUTION WIDTH 13.4 % (11.2-14.1); WHITE BLOOD CELL COUNT,WBC 11.6 K/uL (4.0-10.2)
[2024-05-02 19:05] LABS: APPEARANCE,URINE CLOUDY; BILIRUBIN,URINE NEGATIVE (NEGATIVE); COLOR,URINE DARK YELLOW; GLUCOSE,URINE >=1000 mg/dL (NEGATIVE); KETONES,URINE 15 mg/dL (NEGATIVE); LEUKOCYTE ESTERASE,URINE TRACE (NEGATIVE); NITRITE,URINE POSITIVE (NEGATIVE); OCCULT BLOOD,URINE TRACE-INTACT (NEGATIVE); PH,URINE 5.5 (5.0-9.0); PROTEIN,URINE NEGATIVE (NEGATIVE); UROBILINOGEN,URINE 0.2 E.U./dL (0.2-1.0)
[2024-05-02 19:12] LABS: BACTERIA,URINE MANY /HPF (NONE TO FEW); RBC,URINE 0-5 /HPF
[2024-05-02 19:17] LABS: ALANINE AMINOTRANSFERASE,ALT 9 U/L (12-78); ALBUMIN 3.8 g/dL (3.4-5.0); ALKALINE PHOSPHATASE 111 IU/L (46-116); ANION GAP 8.2 meq/L (7-15); ASPARTATE AMNIOTRANSFERASE,AST 9 U/L (15-37); BLOOD UREA NITROGEN,BUN 17 mg/dL (7-18); CALCIUM 9.7 mg/dL (8.5-10.1); CARBON DIOXIDE,CO2 25.8 mmol/L (21.0-32.0); CHLORIDE,CL 102 mmol/L (98-107); CREATININE 1.27 mg/dL (0.51-1.17); ESTIMATED GFR 65 mL/min (>=60); GLUCOSE RANDOM 189 mg/dL (70-99); POTASSIUM,K 4.1 mmol/L (3.5-5.1); SODIUM,NA 136 mmol/L (136-145)
[2024-05-02] MEDS: cefTRIAXone 1 GM Vial IM ONE (19:32)
[2024-05-02] MEDS: Lidocaine 1% 5 ML VIAL ONE (19:33)
[2024-05-02] MEDS: Take Home: Phenazopyridine 95 MG Tab, 4 Tab Pack PO ONE (19:55)
[2024-05-02] MEDS: Levofloxacin 500 MG Tab PO ONE (19:55)
== END 2024-05-02 20:00 | disposition home or self-care (01) ==
LOC: LL.ED 18:44
DX: N41.0 Acute prostatitis (principal); B96.89 Other specified bacterial agents as the cause of diseases classified elsewhere; I10 Essential (primary) hypertension; K21.9 Gastro-esophageal reflux disease without esophagitis; E11.9 Type 2 diabetes mellitus without complications; Z79.899 Other long term (current) drug therapy; Z79.84 Long term (current) use of oral hypoglycemic drugs; Z79.4 Long term (current) use of insulin; Z88.5 Allergy status to narcotic agent; Z88.6 Allergy status to analgesic agent; Z88.8 Allergy status to other drugs, medicaments and biological substances; Z91.018 Allergy to other foods; Z91.040 Latex allergy status
CPT/HCPCS: 36415; 80053; 81001; 85025; 87086; 87088; 87186; 96372; 99283; A9270; J0696; J3490

== ENCOUNTER 2024-09-29 12:28 | Emergency (ER) | payer OTHER ==
[2024-09-29] MEDS: Sodium Chloride 0.9% 10 ML Syringe FLUSH PRN (13:12)
[2024-09-29] MEDS: diphenhydrAMINE 50 MG/ML SDV IVPUSH ONE (13:13)
[2024-09-29] MEDS: Ondansetron 4 MG/2 ML SDV IVPUSH ONE (13:13)
[2024-09-29] MEDS: HYDROmorphone 0.5 MG/0.5 ML Syringe IVPUSH ONE (13:14)
[2024-09-29] MEDS: methylPREDNISolone Sodium Succinate 125 MG/2 ML SDV IVPUSH ONE (13:15)
[2024-09-29 13:43] VITALS: BP 149/106; PULSE 65
== END 2024-09-29 13:35 | disposition home or self-care (01) ==
LOC: LL.ED 12:28
DX: M54.9 Dorsalgia, unspecified (principal); I10 Essential (primary) hypertension; E11.9 Type 2 diabetes mellitus without complications; Z90.49 Acquired absence of other specified parts of digestive tract; Z79.84 Long term (current) use of oral hypoglycemic drugs; Z79.4 Long term (current) use of insulin; Z79.899 Other long term (current) drug therapy; Z88.6 Allergy status to analgesic agent; Z91.018 Allergy to other foods; Z91.040 Latex allergy status; Z88.9 Allergy status to unspecified drugs, medicaments and biological substances
CPT/HCPCS: 96374; 96375; 99283-25; J1171; J1200; J2405; J2919; J3490

== ENCOUNTER 2025-01-22 17:24 | Emergency (ER) | payer OTHER ==
[2025-01-22 17:33] VITALS: BP 151/101; PULSE 88
[2025-01-22] MEDS: Ondansetron 4 MG Tab.DIS PO ONE (18:18)
[2025-01-22] MEDS: Ketorolac 15 MG/ML SDV IVPUSH ONE (18:30)
[2025-01-22] MEDS: Sodium Chloride 0.9% 10 ML Syringe FLUSH PRN (18:32)
== END 2025-01-22 19:30 | disposition home or self-care (01) ==
LOC: LL.ED 17:24
DX: G43.109 Migraine with aura, not intractable, without status migrainosus (principal); M54.9 Dorsalgia, unspecified; I10 Essential (primary) hypertension; E11.9 Type 2 diabetes mellitus without complications; K21.9 Gastro-esophageal reflux disease without esophagitis; Z79.899 Other long term (current) drug therapy; Z88.8 Allergy status to other drugs, medicaments and biological substances; Z79.4 Long term (current) use of insulin; Z91.040 Latex allergy status; Z91.018 Allergy to other foods; Z88.5 Allergy status to narcotic agent; Z88.6 Allergy status to analgesic agent
CPT/HCPCS: 96374; 96375; 99283; A9270; J1885; J3360; 99284

== ENCOUNTER 2025-06-24 20:13 | Emergency (ER) | payer OTHER ==
[2025-06-24] MEDS ORDERED: Sodium Chloride 0.9% 10 ML Syringe FLUSH PRN (20:32)
[2025-06-24 21:10] LABS: BASOPHILS ABSOLUTE AUTO 0.03 K/uL (0.00-0.20); BASOPHILS PERCENT AUTO 1.1 % (0.0-2.0); EOSINOPHILS ABSOLUTE AUTO 0.03 K/uL (0.00-0.50); EOSINOPHILS PERCENT AUTO 1.1 % (0.0-5.0); IMMATURE GRAN ABSOLUTE AUTO 0.00 10^3/uL (0.00-0.04); IMMATURE GRAN PERCENT AUTO 0.0 % (0.0-0.4); LYMPHOCYTES ABSOLUTE AUTO 1.19 K/uL (0.50-3.50); LYMPHOCYTES PERCENT AUTO 44.7 % (10.0-50.0); MONOCYTES ABSOLUTE AUTO 0.54 K/uL (0.00-1.00); MONOCYTES PERCENT AUTO 20.3 % (2.0-14.0); NEUTROPHILS ABSOLUTE AUTO 0.87 K/uL (1.40-7.00); NEUTROPHILS PERCENT AUTO 32.8 % (45.0-80.0); PLATELET COUNT,PLT 169 K/uL (150-350); RED BLOOD CELL COUNT 5.14 M/uL (4.33-5.41); RED CELL DISTRIBUTION WIDTH 12.5 % (11.2-14.1); WHITE BLOOD CELL COUNT,WBC 2.7 K/uL (4.0-10.2)
[2025-06-24 21:22] LABS: APPEARANCE,URINE CLEAR; GLUCOSE,URINE >=1000 mg/dL (NEGATIVE); LACTIC ACID 1.7 mmol/L (0.4-2.0); OCCULT BLOOD,URINE TRACE-INTACT (NEGATIVE)
[2025-06-24 21:31] LABS: EPITHELIAL CELLS,URINE NOT SEEN /LPF
[2025-06-24] MEDS: Ondansetron 4 MG/2 ML SDV IVPUSH ONE (21:31)
[2025-06-24 21:38] LABS: ALANINE AMINOTRANSFERASE,ALT 28 U/L (12-78); ASPARTATE AMNIOTRANSFERASE,AST 27 U/L (15-37); BILIRUBIN TOTAL 0.5 mg/dL (0.2-1.0); BLOOD UREA NITROGEN,BUN 8 mg/dL (7-18); CARBON DIOXIDE,CO2 27.0 mmol/L (21.0-32.0); CHLORIDE,CL 102 mmol/L (98-107); CREATININE 1.16 mg/dL (0.51-1.17); GLUCOSE RANDOM 95 mg/dL (70-99); POTASSIUM,K 3.4 mmol/L (3.5-5.1); PROTEIN TOTAL,TP 6.8 g/dL (6.4-8.2); SODIUM,NA 138 mmol/L (136-145)
[2025-06-24 21:43] LABS: ESTIMATED GFR 72 mL/min (>=60)
[2025-06-24] MEDS: Lactated Ringers 1,000 ML IV SCH (22:15)
[2025-06-24] MEDS: Ketorolac 15 MG/ML SDV IVPUSH ONE (22:28)
[2025-06-24] MEDS: Take Home: Acetaminophen/HYDROcodone 325-10 MG, 5 Tab Pack PO ONE (23:17)
[2025-06-25 00:49] VITALS: BP 121/87; PULSE 92
== END 2025-06-25 00:20 | disposition home or self-care (01) ==
LOC: LL.ED 20:13
DX: N20.0 Calculus of kidney (principal); I10 Essential (primary) hypertension; E11.9 Type 2 diabetes mellitus without complications; M19.90 Unspecified osteoarthritis, unspecified site; Z79.899 Other long term (current) drug therapy; Z79.4 Long term (current) use of insulin; Z90.49 Acquired absence of other specified parts of digestive tract
CPT/HCPCS: 36415; 74176; 80053; 81001; 83605; 85025; 87040; 96361; 96374; 96375; 96376; 99284; A9270; J1171; J1885; J2405; J7120

== ENCOUNTER 2025-08-05 13:55 | Emergency (ER) | payer OTHER ==
[2025-08-05] MEDS: Ondansetron 4 MG/2 ML SDV IVPUSH ONE ×2 (14:08→14:19)
[2025-08-05] MEDS ORDERED: Naloxone 0.4 MG/ML SDV IVPUSH PRN (14:08)
[2025-08-05 14:18] LABS: BASOPHILS ABSOLUTE AUTO 0.02 K/uL (0.00-0.20); BASOPHILS PERCENT AUTO 0.3 % (0.0-2.0); EOSINOPHILS ABSOLUTE AUTO 0.14 K/uL (0.00-0.50); EOSINOPHILS PERCENT AUTO 2.2 % (0.0-5.0); IMMATURE GRAN ABSOLUTE AUTO 0.01 10^3/uL (0.00-0.04); IMMATURE GRAN PERCENT AUTO 0.2 % (0.0-0.4); LYMPHOCYTES ABSOLUTE AUTO 1.39 K/uL (0.50-3.50); LYMPHOCYTES PERCENT AUTO 21.8 % (10.0-50.0); MONOCYTES ABSOLUTE AUTO 0.40 K/uL (0.00-1.00); MONOCYTES PERCENT AUTO 6.3 % (2.0-14.0); NEUTROPHILS ABSOLUTE AUTO 4.43 K/uL (1.40-7.00); NEUTROPHILS PERCENT AUTO 69.2 % (45.0-80.0); PLATELET COUNT,PLT 195 K/uL (150-350); RED BLOOD CELL COUNT 5.34 M/uL (4.33-5.41); RED CELL DISTRIBUTION WIDTH 12.6 % (11.2-14.1); WHITE BLOOD CELL COUNT,WBC 6.4 K/uL (4.0-10.2)
[2025-08-05] MEDS: Sodium Chloride 0.9% 10 ML Syringe FLUSH PRN (14:19)
[2025-08-05] MEDS: Ondansetron 4 MG/2 ML SDV ONE (14:23)
[2025-08-05 14:35] LABS: INR 1.0 (0.9-1.1); PTT,PARTIAL THROMBOPLSTIN TIME 25.1 SEC (23.8-34.4)
[2025-08-05 14:36] LABS: ALANINE AMINOTRANSFERASE,ALT 22.0 U/L (12-78); ASPARTATE AMNIOTRANSFERASE,AST 22.0 U/L (15-37); BILIRUBIN TOTAL 0.7 mg/dL (0.2-1.0); BLOOD UREA NITROGEN,BUN 11.0 mg/dL (7-18); CARBON DIOXIDE,CO2 28.4 mmol/L (21.0-32.0); CHLORIDE,CL 105.0 mmol/L (98-107); CREATININE 0.9 mg/dL (0.51-1.17); EST CRCL DRUG DOSING (CG) 97.33 mL/min; ESTIMATED GFR 97.0 mL/min (>=60); GLUCOSE RANDOM 136.0 mg/dL (70-99); POTASSIUM,K 4.1 mmol/L (3.5-5.1); PROTEIN TOTAL,TP 6.9 g/dL (6.4-8.2); SODIUM,NA 143.0 mmol/L (136-145)
[2025-08-05] MEDS: fentaNYL 50 MCG/ML SDV IVPUSH ONE (15:03)
[2025-08-05] MEDS: methylPREDNISolone Sodium Succinate 40 MG/1 ML SDV IVPUSH ONE (15:41)
[2025-08-05] MEDS: Take Home: Cyclobenzaprine 10 MG Tab, 4 Tab Pack PO ONE (16:27)
[2025-08-05] MEDS: Take Home: Ondansetron 4 MG Tab.DIS, 5 Tab Pack PO ONE (16:27)
[2025-08-05 16:29] VITALS: BP 155/92; PULSE 79
== END 2025-08-05 16:34 | disposition home or self-care (01) ==
LOC: LL.ED 13:55
DX: M79.7 Fibromyalgia (principal); R11.2 Nausea with vomiting, unspecified; Z88.6 Allergy status to analgesic agent; Z88.8 Allergy status to other drugs, medicaments and biological substances; Z91.040 Latex allergy status; I10 Essential (primary) hypertension; E11.9 Type 2 diabetes mellitus without complications; Z90.49 Acquired absence of other specified parts of digestive tract; Z98.52 Vasectomy status; Z79.899 Other long term (current) drug therapy; Z79.84 Long term (current) use of oral hypoglycemic drugs; Z79.4 Long term (current) use of insulin
CPT/HCPCS: 36415; 80053; 84484; 85025; 85610; 85730; 93005; 96361; 96374; 96375; 99284-25; A9270-GY; J1171; J2405; J2919; J3010; J7030; Q0162